=== PATIENT | female | born 2000 | race Two or more races ===

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

== ENCOUNTER 2021-01-15 13:43 | Emergency (ER) | payer OTHER, SELFPAY | END 2021-01-15 15:49 | disposition left against medical advice (07) | PROVIDERS: Emergency Provider Emergency Medicine; PCP Internal Medicine | DX: O03.9 Complete or unspecified spontaneous abortion without complication (principal) ==

== ENCOUNTER 2021-01-25 08:57 | Outpatient (REF) | payer OTHER, SELFPAY ==
[2021-01-26 09:36] LABS: CT PCR NOT DETECTED (Not Detect.); NG PCR NOT DETECTED (Not Detect.)
== END 2021-01-25 08:58 | disposition home or self-care (01) ==
LOC: HO.LAB 08:57
PROVIDERS: PCP Internal Medicine; Visit Provider Obstetrics & Gynecology
DX: Z32.01 Encounter for pregnancy test, result positive (principal)
CPT/HCPCS: 86850; 86900; 86901; 87491; 87591; 99212

== ENCOUNTER 2021-01-25 11:16 | Outpatient (REF) | payer OTHER, SELFPAY ==
--- NOTE | ~2021-01-25 | US_ITS ---
EXAMINATION: US OBSTETRICAL ULTRASOUND CLINICAL INFORMATION: Encounter for test. COMPARISON: None. LMP: Unknown. Gestational age by maternal dates is unknown. Estimated date of delivery by maternal dates is unknown. TECHNIQUE: Transabdominal imaging of pelvis is performed. FINDINGS: There is a single intrauterine gestational sac with visible yolk sac, embryo/fetus, and cardiac activity. There is no significant subchorionic hemorrhage or hematoma. HR: 143 beats per minute. CRL (crown-rump length): 0.95 cm, 7 weeks and 0 days (+/- 4 days). EVERARDO (estimated date of delivery): 09/13/2021 +/- 4 days. MATERNAL ADNEXA: The right maternal ovary measures 4.0 x 1.7 x 2.6 cm. The left maternal ovary is not visualized. There is no significant maternal adnexal mass. No maternal pelvic ascites. US/US OB <= 14 weeks fetus IMPRESSION: 1. Single intrauterine gestation with ultrasound gestational age of 7 weeks and 0 days +/- 4 days. 2. Estimated date of delivery is 09/13/2021 +/- 4 days. 3. No maternal adnexal mass or pelvic ascites. 4. The right ovary is unremarkable. The left ovary is not seen.
== END 2021-01-25 11:17 | disposition home or self-care (01) ==
LOC: HO.HMGCX 11:16
PROVIDERS: PCP Internal Medicine; Visit Provider Obstetrics & Gynecology
DX: Z34.91 Encounter for supervision of normal pregnancy, unspecified, first trimester (principal)
CPT/HCPCS: 76801

== ENCOUNTER 2021-01-29 20:17 | Emergency (ER) | payer OTHER, SELFPAY ==
[2021-01-29 20:28] VITALS: BP 107/46; PULSE 99; RESP 16; TEMP 36.8; O2SAT 100; BMI 28.6
--- NOTE | 2021-01-29 20:37 | ECG_ITS ---
Test Reason : SEIZURE Blood Pressure : / mmHG Vent. Rate : 089 BPM Atrial Rate : 089 BPM P-R Int : 148 ms QRS Dur : 062 ms QT Int : 346 ms P-R-T Axes : 042 079 030 degrees QTc Int : 420 ms Normal sinus rhythm Nonspecific ST abnormality Abnormal ECG When compared with ECG of 07-JUL-2020 08:40, Vent. rate has decreased BY 80 BPM Referred By: Elena Rizzo Electronically Signed By:BARBRA SEPULVEDA
[2021-01-29 20:55] VITALS: BP 109/52; PULSE 80
[2021-01-29 20:59] VITALS: BP 107/56; BP 117/57; PULSE 88; PULSE 90
[2021-01-29 21:01] VITALS: BP 107/56; PULSE 88; RESP 20; TEMP 36.9
[2021-01-29 21:20] LABS: Glucose, Whole Blood 96 mg/dL (60-115)
--- NOTE | 2021-01-29 21:23 | ED_ITS ---
HPI - Seizure General Chief Complaint: Seizure Stated Complaint: seizures Time Seen by Provider: 01/29/21 20:26 Source: patient and EMS Mode of arrival: EMS Limitations: no limitations History of Present Illness HPI Narrative: 20-year-old female with a past medical history of bipolar disease, hepatitis-C, nonepileptic seizure disorder here with complaints of fall while working. Patient is a [employer]. She tells me today she had a mild headache and felt very dizzy with moving around. She tells me while she got up to do an activity she fell to the ground and is unsure if she passed out or had a seizure. No incontinence. No tongue bite. On arrival to the emergency department she is alert and oriented. She tells me she found out she was 8 weeks about 3 weeks ago and discontinued all of her medications for bipolar, anxiety and insomnia. She has had ultrasound to confirm IUP. Denies abdominal pain or vaginal bleeding. Related Data Home Medications Medication Instructions Recorded Confirmed hydroxyzine HCl 25 mg tablet 25 - 50 mg PO BID PRN 07/11/20 11/18/20 aripiprazole 5 mg tablet 5 mg PO BEDTIME 07/28/20 11/18/20 propranolol 10 mg tablet 10 mg PO BID 07/28/20 11/18/20 sertraline 50 mg tablet 0 mg PO 08/25/20 11/18/20 trazodone 100 mg tablet 100 mg PO BEDTIME PRN 11/17/20 11/18/20 prenat.vits,sheyla,ekw-krdi-dqgxs 1 tab PO BEDTIME 01/25/21 Previous Rx's Medication Instructions Recorded epinephrine 0.3 mg/0.3 mL 0.3 mg IM ONCE PRN #2 ea 04/29/20 injection, auto-injector (EpiPen 2-Chris) ondansetron HCl 4 mg tablet 4 mg PO Q8H PRN #10 tab 09/20/20 (Zofran) nitrofurantoin macrocrystal 100 mg 100 mg PO BID 7 Days #14 cap 11/26/20 capsule Allergies Allergy/AdvReac Type Severity Reaction Status Date / Time amoxicillin [AMOXICILLIN] Allergy Severe Hives Verified 01/25/21 09:07 cefadroxil [Cefadroxil] Allergy Severe anaphylaxis Verified 01/25/21 09:07 peanut [PEANUT] Allergy Severe LIP, Verified 01/25/21 09:07 TONGUE SWELLING. Review of Systems Review of Systems: Yes all other systems are reviewed and are negative Constitutional: Constitutional: Reports no additional constitutional complaints, Denies body ache(s), Denies chills, Denies fever(s), Reports headache(s) and Denies weakness Eyes: Eyes: Reports no additional eye complaints and Denies change in vision ENT: Reports system reviewed and no additional complaints, except as documented, Reports dizziness, Reports headache(s), Denies nasal congestion, Denies nasal discharge and Denies neck pain Cardiovascular: Cardiovascular: Reports no additional cardiovascular complaints, Denies chest pain, Denies leg edema and Denies dyspnea Respiratory: Respiratory: Reports no additional respiratory complaints, Denies cough and Denies dyspnea Gastrointestinal: Gastrointestinal: Reports no additional gastrointestinal complaints, Denies abdominal pain, Denies diarrhea, Denies nausea and Denies vomiting Genitourinary: Genitourinary: Reports no additional female genitourinary complaints and Denies urinary incontinence Musculoskeletal: Musculoskeletal: Reports no additional musculoskeletal complaints, Denies back pain, Denies arthralgias, Denies joint swelling, Denies neck pain, Denies numbness and Denies tingling Integumentary/Breasts: Skin/Breast: Reports system reviewed and no additional complaints, except as docu and Denies rash Neurologic: Reports system reviewed and no additional complaints, except as documented, Denies Abnormal speech present, Reports dizziness, Reports headache(s), Denies numbness, Denies tingling and Denies weakness PMFSH Past Medical History Attestation statement: The following information was validated with the patient. Source: old records reviewed and nursing notes reviewed Medical History Anxiety and depression Bipolar 1 disorder Food allergy, peanut Hospital discharge follow-up Insomnia Lower back pain Lumbago with sciatica, right side Positive hepatitis C antibody test Seizures Sprain, low back Surgical History H/O removal of cyst History of wisdom tooth extraction Family History Family History Father PTSD (post-traumatic stress disorder) High cholesterol Mother Loss of hearing Social History Social History Alcohol intake: never Patient Tobacco Use Status: Never used Tobacco Advance Directives: No Advance Directives Information Provided: No Patient : Yes Physical Exam Vital Signs: Vital Signs: Last Vital Signs Temp 98.5 F 01/29/21 21:01 Pulse 88 01/29/21 21:01 Resp 16 01/29/21 22:36 BP 107/56 L 01/29/21 21:01 Pulse Ox 100 01/29/21 20:28 Body Mass Index 28.6 Const: General: cooperative, healthy appearing, comfortable and no acute distress Orientation/consciousness: patient oriented x3 Limitations: no limitations HENMT: Head: Yes normal to inspection Ears: hearing grossly normal bilaterally General nose exam: Normal external nose present Face and sinus: Yes normal facial exam Mouth: Normal oral and palatal mucosa present Throat: Yes posterior oropharynx normal Eyes: General: appearance normal, both eyes and all related structures Pupils: Equal, round and reactive pupils present Neck: Neck: Yes normal visual inspection Chest: Chest palpation & inspection: normal inspection of the chest Resp: Effort & Inspection: normal respiratory effort Auscultation: clear to auscultation bilaterally Cardio: Rate: regular rate Rhythm: regular rhythm Peripheral pulses: Peripheral pulses 2+ throughout GI: Inspection: Yes normal to inspection Palpation (GI): Soft to palpation and nontender Auscultation: normal bowel sounds Back/Spine/Pelvis: Thoracic/Lumbar Spine: thoracic and lumbar spine normal to inspection Skin: General skin exam: no rashes or lesions noted Neuro: General: patient oriented x3, no focal motor deficits and normal sensation to monofilament Cranial nerves: Yes CN's II-XII intact bilaterally, Yes Equal, round and reactive pupils present, Yes Bilaterally intact EOM present, Yes Nystagmus not present, Yes Normal facial strength present and Yes Midline tongue present Cognition (Neuro): normal cognition Speech: No Abnormal speech present Gait exam (Neuro): Normal gait present Motor exam (neuro): 5/5 motor strength present throughout Sensory Exam: Normal double simultaneous stimulation for sensation Coordination: [id number]-[id number] test normal, xyyn-xw-[id number] test normal and tandem gait normal Extrem: General: Yes normal to inspection Course Course Course Narrative: 20-year-old female here with syncopal versus seizure which occurred at work. Patient had pre symptoms of dizziness and mild headache. 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 No incontinence, witnessed shaking or tongue bite. On arrival alert and oriented. Neurologically intact. Patient tells me that she has nonepileptic seizures wh ich are triggered by stress. She has had increased stress at work the last 2 weeks as well as finding out that she was unexpectedly . She also tells me she discontinued all her psychiatric medications 3 weeks ago after finding out she was . No -related complaints such as bleeding or cramping. Hemodynamically stable. Will check labs, EKG, orthostatics, POC. 2203-labs are unremarkable. EKG and point of care normal. Orthostatics negative. Patient is feeling improved. ?syncope vs non epileptic seizure. She is at her baseline. Hemodynamically stable. Up and ambulatory with a steady gait. Reviewed worrisome signs and symptoms of when to return to the emergency department. Comfortable discharge home. MDM - Seizure Medical Records Attestation: I reviewed the patient's medical records. Lab Data Attestation: I reviewed the patient's lab results. Result diagrams: 01/29/21 21:26 01/29/21 21:26 Labs: Lab Results 01/29/21 01/29/21 01/29/21 Range/Units 21:16 21:26 21:26 WBC 8.1 (4.8-10.8) X10*3/uL RBC 3.45 L (4.20-5.50) X10*6/uL Hgb 10.8 L (12.0-16.0) g/dl Hct 31.2 L (37-47) % MCV 90.4 (80-98) fL MCH 31.3 (27.0-33.0) pg MCHC 34.6 (31.0-35.0) g/dl RDW 12.4 (11.0-16.0) % Plt Count 238 (160-400) X10*3/uL MPV 10.2 (9.4-12.3) fL Immature Gran % (Auto) 0.4 (0.0-0.4) % Neut % (Auto) 63.6 (45-73) % Lymph % (Auto) 29.3 (20-40) % [place] % (Auto) 5.3 (2-11) % Eos % (Auto) 0.9 (0-4) % Baso % (Auto) 0.5 (0-2) % Lymph # (Auto) 2.4 (1.2-4.9) X10*3/uL [place] # (Auto) 0.4 (0.1-1.2) X10*3/uL Eos # (Auto) 0.1 (0.0-0.4) X10*3/uL Baso # (Auto) 0.0 (0.0-0.2) X10*3/uL Abs Immat Gran (auto) 0.03 (0.00-0.03) X10*3/uL Absolute Neuts (auto) 5.1 (2.0-8.3) X10*3/uL Absolute Nucleated RBC 0.000 (0.0-0.012) X10*3/uL Nucleated RBC % (auto) 0.0 (0.0-0.2) /100WBC Sodium 139 (135-145) mmol/L Potassium 4.0 (3.3-5.1) mmol/L Chloride 108 (96-108) mmol/L Carbon Dioxide 23 (22-29) mmol/L Anion Gap 12 (12-20) BUN 6 L (9-16) mg/dL Creatinine 0.68 (0.5-1.4) mg/dL Estim Creat Clear Calc 108.5 Estimated GFR > 60 POC Glucose 96 (60-115) mg/dL Random Glucose 96 (60-115) mg/dL Calcium 9.2 D (8.4-10.2) mg/dL Magnesium 2.1 (1.6-2.6) mg/dL Urine Color Urine Appearance Urine pH (5.0-8.0) Ur Specific [place] (1.005-1.025) Urine Protein (NEG-TRACE) MG/DL Urine Glucose (UA) (NEG) MG/DL Urine Ketones (NEG) MG/DL Urine Blood (NEG) Urine Nitrite (NEG) Ur Leukocyte Esterase (NEG) Urine Test (NEGATIVE) 01/29/21 01/29/21 Range/Units 21:26 21:26 WBC (4.8-10.8) X10*3/uL RBC (4.20-5.50) X10*6/uL Hgb (12.0-16.0) g/dl Hct (37-47) % MCV (80-98) fL MCH (27.0-33.0) pg MCHC (31.0-35.0) g/dl RDW (11.0-16.0) % Plt Count (160-400) X10*3/uL MPV (9.4-12.3) fL Immature Gran % (Auto) (0.0-0.4) % Neut % (Auto) (45-73) % Lymph % (Auto) (20-40) % [place] % (Auto) (2-11) % Eos % (Auto) (0-4) % Baso % (Auto) (0-2) % Lymph # (Auto) (1.2-4.9) X10*3/uL [place] # (Auto) (0.1-1.2) X10*3/uL Eos # (Auto) (0.0-0.4) X10*3/uL Baso # (Auto) (0.0-0.2) X10*3/uL Abs Immat Gran (auto) (0.00-0.03) X10*3/uL Absolute Neuts (auto) (2.0-8.3) X10*3/uL Absolute Nucleated RBC (0.0-0.012) X10*3/uL Nucleated RBC % (auto) (0.0-0.2) /100WBC Sodium (135-145) mmol/L Potassium (3.3-5.1) mmol/L Chloride (96-108) mmol/L Carbon Dioxide (22-29) mmol/L Anion Gap (12-20) BUN (9-16) mg/dL Creatinine (0.5-1.4) mg/dL Estim Creat Clear Calc Estimated GFR POC Glucose (60-115) mg/dL Random Glucose (60-115) mg/dL Calcium (8.4-10.2) mg/dL Magnesium (1.6-2.6) mg/dL Urine Color YELLOW Urine Appearance CLEAR Urine pH 6.5 (5.0-8.0) Ur Specific [place] <= 1.005 (1.005-1.025) Urine Protein NEG (NEG-TRACE) MG/DL Urine Glucose (UA) NEG (NEG) MG/DL Urine Ketones NEG (NEG) MG/DL Urine Blood NEG (NEG) Urine Nitrite NEG (NEG) Ur Leukocyte Esterase NEG (NEG) Urine Test POSITIVE H (NEGATIVE) ECG Data Attestation: I personally reviewed and interpreted this ECG as follows: ECG interpretation date: 01/29/21 ECG interpretation time: 20:52 Interpretation: Normal sinus rhythm with a rate of 89, normal MD, normal QRS, normal QT Discharge Plan Discharge Clinical Impression: Syncope Patient Disposition: Home, Self-Care Instructions: Syncope (ED) Additional Instructions: Eat small frequent meals Increase fluid Prescriptions: No Action nitrofurantoin macrocrystal 100 mg capsule 100 mg PO BID 7 Days Qty: 14 RF: 0 ondansetron HCl [Zofran] 4 mg tablet 4 mg PO Q8H PRN (Reason: nausea and vomiting) Qty: 10 RF: 0 epinephrine [EpiPen 2-Chris] 0.3 mg/0.3 mL auto-injector 0.3 mg IM ONCE PRN (Reason: anaphylaxis) Qty: 2 RF: 0 sertraline 50 mg tablet 0 mg PO RF: 0 trazodone 100 mg tablet 100 mg PO BEDTIME PRNRF: 0 hydroxyzine HCl 25 mg tablet 25 - 50 mg PO BID PRN (Reason: Anxiety) RF: 0 aripiprazole 5 mg tablet 5 mg PO BEDTIME RF: 0 propranolol 10 mg tablet 10 mg PO BID RF: 0 prenat.vits,sheyla,rld-vuuy-hwnmn Tablet 1 tab PO BEDTIME RF: 0 Referrals: Physician,Unknown [Primary Care Provider] - 2 days Stand Alone Forms: Work/School Release Interventions: ED Discharge Assessment Last Done: 01/29/21 22:36 Discharge Date/Time: 01/29/21 22:36
[2021-01-29] MEDS: Acetaminophen 325 MG TABLET 975 MG PO (21:30)
[2021-01-29 21:32] LABS: Basophils Percent Auto 0.5 % (0-2); Eosinophils Absolute Auto 0.1 X10*3/uL (0.0-0.4); Eosinophils Percent Auto 0.9 % (0-4); Hematocrit 31.2 % (37-47); Hemoglobin 10.8 g/dl (12.0-16.0); Imm Gran Abs Auto 0.03 X10*3/uL (0.00-0.03); Imm Gran Pct Auto 0.4 % (0.0-0.4); Lymphocytes Absolute Auto 2.4 X10*3/uL (1.2-4.9); Lymphocytes Percent Auto 29.3 % (20-40); MANUAL DIFF FLAG NO; Mean Corpuscular HGB Conc 34.6 g/dl (31.0-35.0); Mean Corpuscular Hemoglobin 31.3 pg (27.0-33.0); Mean Corpuscular Volume 90.4 fL (80-98); Mean Platelet Volume 10.2 fL (9.4-12.3); Monocytes Absolute Auto 0.4 X10*3/uL (0.1-1.2); Monocytes Percent Auto 5.3 % (2-11); Neutrophils Absolute Auto 5.1 X10*3/uL (2.0-8.3); Neutrophils Percent Auto 63.6 % (45-73); Platelet Count 238 X10*3/uL (160-400); Red Blood Count 3.45 X10*6/uL (4.20-5.50); Red Cell Distribution Width 12.4 % (11.0-16.0); White Blood Count 8.1 X10*3/uL (4.8-10.8)
[2021-01-29 21:34] LABS: UPreg QC Valid YES; Urine Pregnancy POSITIVE (NEGATIVE)
[2021-01-29 21:35] LABS: Glucose Urine UA NEG (NEG); Leukocyte Esterase Urine NEG (NEG); Nitrite Urine NEG (NEG); PH 6.5 (5.0-8.0); Specific Gravity - Urine <= 1.005 (1.005-1.025); Urine Blood NEG (NEG); Urine Ketones NEG (NEG); Urine Protein NEG (NEG-TRACE)
[2021-01-29 21:36] LABS: Appearance Urine CLEAR; Color Urine YELLOW
[2021-01-29 21:54] LABS: Anion Gap 12 (12-20); Blood Urea Nitrogen 6 mg/dL (9-16); Calcium 9.2 mg/dL (8.4-10.2); Carbon Dioxide 23 mmol/L (22-29); Chloride 108 mmol/L (96-108); Creatinine Clr Calc Pharmacy 108.5; Estimated Glomerular Filt Rate > 60; Glucose Random 96 mg/dL (60-115); Magnesium 2.1 mg/dL (1.6-2.6); Sodium 139 mmol/L (135-145)
[2021-01-29 22:36] VITALS: RESP 16
== END 2021-01-29 22:36 | disposition home or self-care (01) ==
PROVIDERS: Nurse Practitioner Family; Emergency Provider Internal Medicine
DX: R56.9 Unspecified convulsions (principal); R42 Dizziness and giddiness; R51.9 Headache, unspecified; Z79.899 Other long term (current) drug therapy
CPT/HCPCS: 36415; 80048; 81003; 81025; 82947; 83735; 85025; 93005; 99283; 99284

== ENCOUNTER 2021-01-31 12:13 | Emergency (ER) | payer OTHER, SELFPAY ==
[2021-01-31 13:16] VITALS: BP 111/61; PULSE 80; RESP 18; TEMP 36.6; O2SAT 100; BMI 29.2
[2021-01-31 13:40] LABS: Glucose Urine UA NEG (NEG); Leukocyte Esterase Urine NEG (NEG); Nitrite Urine NEG (NEG); Specific Gravity - Urine <= 1.005 (1.005-1.025); Urine Blood NEG (NEG); Urine Ketones NEG (NEG); Urine Protein NEG (NEG-TRACE)
[2021-01-31 13:44] LABS: Appearance Urine CLEAR; Color Urine YELLOW; UPreg QC Valid YES; Urine Pregnancy POSITIVE (NEGATIVE)
--- NOTE | 2021-01-31 15:23 | ED_ITS ---
HPI - General Adult General Chief complaint: General Medical Stated complaint: states passed out hit head Time Seen by Provider: 01/31/21 14:45 Source: patient Mode of arrival: ambulatory Limitations: no limitations History of Present Illness HPI narrative: 20 y/o female with history of bipolar disorder, nonepileptic seizures, hepatitis C, anxiety/depression, insomnia who is G1 and currently 7 weeks presents to the ER for evaluation after she syncopized and hit her head yesterday. She reports standing outside with her boyfriend when she started feeling dizzy and then lost consciousness, fell forward, hit her head on a wall and her boyfriend caught her and lowered her to the ground. She was seen here in the ED on 01/29 for syncope as well, had an unremarkable workup and was discharged home. She woke up this morning with a mild frontal headache and some nausea and vomiting. She has been vomiting on/off during this beginning part of her . She has no abdominal pain, vaginal bleeding or cramping. No SOB or chest pain. She states increased dizziness with prolonged standing since she was told she was . She recently stopped all of her psych meds after finding out she was , until she can be seen by her psychitrist. She called her OB who told her to come to the ER for evaluation. complaint: s/p syncope Onset (ago): day(s) (1) Location: head Radiation: non-radiation Severity: mild Severity scale (1-10): 3 Quality: aching Pain Consistency: constant Relieving factors: none Exacerbating factors: none Associated symptoms: nausea/vomiting Treatments prior to arrival: none Related Data Home Medications Medication Instructions Recorded Confirmed hydroxyzine HCl 25 mg tablet 25 - 50 mg PO BID PRN 07/11/20 11/18/20 aripiprazole 5 mg tablet 5 mg PO BEDTIME 07/28/20 11/18/20 propranolol 10 mg tablet 10 mg PO BID 07/28/20 11/18/20 sertraline 50 mg tablet 0 mg PO 08/25/20 11/18/20 trazodone 100 mg tablet 100 mg PO BEDTIME PRN 11/17/20 11/18/20 prenat.vits,sheyla,lsg-qpda-pjngw 1 tab PO BEDTIME 01/25/21 Previous Rx's Medication Instructions Recorded epinephrine 0.3 mg/0.3 mL 0.3 mg IM ONCE PRN #2 ea 04/29/20 injection, auto-injector (EpiPen 2-Chris) ondansetron HCl 4 mg tablet 4 mg PO Q8H PRN #10 tab 09/20/20 (Zofran) nitrofurantoin macrocrystal 100 mg 100 mg PO BID 7 Days #14 cap 11/26/20 capsule Allergies Allergy/AdvReac Type Severity Reaction Status Date / Time amoxicillin [AMOXICILLIN] Allergy Severe Hives Verified 01/31/21 13:16 cefadroxil [Cefadroxil] Allergy Severe anaphylaxis Verified 01/31/21 13:16 peanut [PEANUT] Allergy Severe LIP, Verified 01/31/21 13:16 TONGUE SWELLING. Review of Systems Review of Systems: Constitutional: No Fever, No Chills ENT/Mouth: No sore throat, No Rhinorrhea, No Swallowing Difficulty Cardiovascular: No Chest Pain, No SOB Respiratory: No Cough, No Sputum Gastrointestinal: + Nausea, + Vomiting, No Diarrhea, No abdominal Pain or cramping Genitourinary: No Dysuria, No Urinary Frequency, No Hematuria, No vaginal bleeding Musculoskeletal: No joint pain, + Myalgias Skin: No Skin Lesions, No rash Neuro: No Weakness, No Numbness, No Dizziness, + Headache Psych: + Anxiety/Panic, No Depression Heme/Lymph: No Bruising, No Lymphadenopathy PMFSH Past Medical History Medical History Anxiety and depression Bipolar 1 disorder Food allergy, peanut Hospital discharge follow-up Insomnia Lower back pain Lumbago with sciatica, right side Positive hepatitis C antibody test Seizures Sprain, low back Surgical History H/O removal of cyst History of wisdom tooth extraction Family History Family History Father PTSD (post-traumatic stress disorder) High cholesterol Mother Loss of hearing Social History Social History Alcohol intake: never Patient Tobacco Use Status: Never used Tobacco Use of substances other than those prescribed or required for medical reasons: No Advance Directives: No Advance Directives Information Provided: No Patient : Yes Physical Exam Vital Signs: Vital Signs: Last Vital Signs Temp 97.9 F 01/31/21 13:16 Pulse 82 01/31/21 16:19 Resp 18 01/31/21 13:16 BP 112/59 L 01/31/21 16:19 Pulse Ox 100 01/31/21 13:16 Body Mass Index 29.2 Appearance: Alert. Oriented X3. No acute distress. Eyes: Pupils equal, round and reactive to light. ENT: Pharynx normal. Neck: Normal inspection. Neck supple. CVS: Normal heart rate and rhythm. Pulses normal. Respiratory: No respiratory distress. Breath sounds normal. Abdomen: Soft and nontender. Mild right sided flank tenderness, no ecchymosis, no CVA tenderness. no RUQ tenderness. +BS x4. Pelvic exam deferred Skin: Skin warm and dry. Normal skin color. Normal skin turgor. No rashes. Extremities: No lower extremity edema. Neuro: Oriented X 3. No motor deficit. No sensory deficit. Course Course Course Narrative: 20 y/o female presenting with syncopal event yesterday after standing for a prolonged amount of time. She was dizzy prior. Admits to not drinking or eating much. She hit her head but has no evidence of trauma on exam. Reports some headache, N/V this morning. May be related to , morning sickness. No N/V here. She appears well. Will check basic labs and orthostatics. IVF ordered. Reevaluation(s) Reevaluation #1: Labs are normal. UA normal. Given IVF and tylenol. She is stable for discharge with plan to f/u with OB. Discussed importance of staying hydrated. Encouraged not to stand for long periods of time and change positions slowly. Medical Decision Making Lab Data Result diagrams: 01/31/21 15:16 01/31/21 15:16 Labs: Lab Results 01/31/21 01/31/21 01/31/21 Range/Units 13:25 13:25 15:16 WBC 7.7 (4.8-10.8) X10*3/uL RBC 3.48 L (4.20-5.50) X10*6/uL Hgb 10.8 L (12.0-16.0) g/dl Hct 31.9 L (37-47) % MCV 91.7 (80-98) fL MCH 31.0 (27.0-33.0) pg MCHC 33.9 (31.0-35.0) g/dl RDW 12.6 (11.0-16.0) % Plt Count 239 (160-400) X10*3/uL MPV 10.2 (9.4-12.3) fL Immature Gran % (Auto) 0.4 (0.0-0.4) % Neut % (Auto) 65.4 (45-73) % Lymph % (Auto) 26.9 (20-40) % [place] % (Auto) 6.2 (2-11) % Eos % (Auto) 0.6 (0-4) % Baso % (Auto) 0.5 (0-2) % Lymph # (Auto) 2.1 (1.2-4.9) X10*3/uL [place] # (Auto) 0.5 (0.1-1.2) X10*3/uL Eos # (Auto) 0.1 (0.0-0.4) X10*3/uL Baso # (Auto) 0.0 (0.0-0.2) X10*3/uL Abs Immat Gran (auto) 0.03 (0.00-0.03) X10*3/uL Absolute Neuts (auto) 5.1 (2.0-8.3) X10*3/uL Absolute Nucleated RBC 0.000 (0.0-0.012) X10*3/uL Nucleated RBC % (auto) 0.0 (0.0-0.2) /100WBC Sodium (135-145) mmol/L Potassium (3.3-5.1) mmol/L Chloride (96-108) mmol/L Carbon Dioxide (22-29) mmol/L Anion Gap (12-20) BUN (9-16) mg/dL Creatinine (0.5-1.4) mg/dL Estim Creat Clear Calc Estimated GFR Random Glucose (60-115) mg/dL Calcium (8.4-10.2) mg/dL Magnesium (1.6-2.6) mg/dL Total Bilirubin (0.0-1.0) mg/dL Direct Bilirubin (0.0-0.5) mg/dL AST (5-31) U/L ALT (0-31) U/L Alkaline Phosphatase (39-117) U/L Total Protein (6.5-8.0) g/dL Albumin (3.5-5.0) g/dL Urine Color YELLOW Urine Appearance CLEAR Urine pH 6.0 (5.0-8.0) Ur Specific [place] <= 1.005 (1.005-1.025) Urine Protein NEG (NEG-TRACE) MG/DL Urine Glucose (UA) NEG (NEG) MG/DL Urine Ketones NEG (NEG) MG/DL Urine Blood NEG (NEG) Urine Nitrite NEG (NEG) Ur Leukocyte Esterase NEG (NEG) Urine Test POSITIVE H (NEGATIVE) 01/31/21 Range/Units 15:16 WBC (4.8-10.8) X10*3/uL RBC (4.20-5.50) X10*6/uL Hgb (12.0-16.0) g/dl Hct (37-47) % MCV (80-98) fL MCH (27.0-33.0) pg MCHC (31.0-35.0) g/dl RDW (11.0-16.0) % Plt Count (160-400) X10*3/uL MPV (9.4-12.3) fL Immature Gran % (Auto) (0.0-0.4) % Neut % (Auto) (45-73) % Lymph % (Auto) (20-40) % [place] % (Auto) (2-11) % Eos % (Auto) (0-4) % Baso % (Auto) (0-2) % Lymph # (Auto) (1.2-4.9) X10*3/uL [place] # (Auto) (0.1-1.2) X10*3/uL Eos # (Auto) (0.0-0.4) X10*3/uL Baso # (Auto) (0.0-0.2) X10*3/uL Abs Immat Gran (auto) (0.00-0.03) X10*3/uL Absolute Neuts (auto) (2.0-8.3) X10*3/uL Absolute Nucleated RBC (0.0-0.012) X10*3/uL Nucleated RBC % (auto) (0.0-0.2) /100WBC Sodium 139 (135-145) mmol/L Potassium 4.1 (3.3-5.1) mmol/L Chloride 108 (96-108) mmol/L Carbon Dioxide 22 (22-29) mmol/L Anion Gap 13 (12-20) BUN 6 L (9-16) mg/dL Creatinine 0.67 (0.5-1.4) mg/dL Estim Creat Clear Calc 111.4 Estimated GFR > 60 Random Glucose 95 (60-115) mg/dL Calcium 9.5 (8.4-10.2) mg/dL Magnesium 2.0 (1.6-2.6) mg/dL Total Bilirubin 0.9 (0.0-1.0) mg/dL Direct Bilirubin 0.3 (0.0-0.5) mg/dL AST 15 (5-31) U/L ALT 13 (0-31) U/L Alkaline Phosphatase 40 D (39-117) U/L Total Protein 6.6 (6.5-8.0) g/dL Albumin 4.1 (3.5-5.0) g/dL Urine Color Urine Appearance Urine pH (5.0-8.0) Ur Specific [place] (1.005-1.025) Urine Protein (NEG-TRACE) MG/DL Urine Glucose (UA) (NEG) MG/DL Urine Ketones (NEG) MG/DL Urine Blood (NEG) Urine Nitrite (NEG) Ur Leukocyte Esterase (NEG) Urine Test (NEGATIVE) Discharge Plan Discharge Clinical Impression: Syncope Qualifiers: Syncope type: unspecified Qualified Code(s): R55 - Syncope and collapse Patient Disposition: Home, Self-Care Instructions: Syncope (ED) Additional Instructions: Your workup today was unremarkable. Do your best to stay hydrated and drink plenty of water. Do not stand for prolonged periods of time. When you go from laying or sitting to standing, do so slowly. Follow up with your [employer]. If you develop new or worsening symptoms call 911 or come back to the ER for further evaluation. Prescriptions: No Action nitrofurantoin macrocrystal 100 mg capsule 100 mg PO BID 7 Days Qty: 14 RF: 0 ondansetron HCl [Zofran] 4 mg tablet 4 mg PO Q8H PRN (Reason: nausea and vomiting) Qty: 10 RF: 0 epinephrine [EpiPen 2-Chris] 0.3 mg/0.3 mL auto-injector 0.3 mg IM ONCE PRN (Reason: anaphylaxis) Qty: 2 RF: 0 sertraline 50 mg tablet 0 mg PO RF: 0 trazodone 100 mg tablet 100 mg PO BEDTIME PRNRF: 0 hydroxyzine HCl 25 mg tablet 25 - 50 mg PO BID PRN (Reason: Anxiety) RF: 0 aripiprazole 5 mg tablet 5 mg PO BEDTIME RF: 0 propranolol 10 mg tablet 10 mg PO BID RF: 0 prenat.vits,sheyla,cwo-xkiu-izrpo Tablet 1 tab PO BEDTIME RF: 0 Interventions: ED Discharge Assessment Last Done: 01/31/21 19:48 Discharge Date/Time: 01/31/21 20:00
[2021-01-31 15:24] LABS: MANUAL DIFF FLAG NO
[2021-01-31 15:29] LABS: Basophils Percent Auto 0.5 % (0-2); Eosinophils Absolute Auto 0.1 X10*3/uL (0.0-0.4); Eosinophils Percent Auto 0.6 % (0-4); Hematocrit 31.9 % (37-47); Hemoglobin 10.8 g/dl (12.0-16.0); Imm Gran Abs Auto 0.03 X10*3/uL (0.00-0.03); Imm Gran Pct Auto 0.4 % (0.0-0.4); Lymphocytes Absolute Auto 2.1 X10*3/uL (1.2-4.9); Lymphocytes Percent Auto 26.9 % (20-40); Mean Corpuscular HGB Conc 33.9 g/dl (31.0-35.0); Mean Corpuscular Volume 91.7 fL (80-98); Mean Platelet Volume 10.2 fL (9.4-12.3); Monocytes Absolute Auto 0.5 X10*3/uL (0.1-1.2); Monocytes Percent Auto 6.2 % (2-11); Neutrophils Absolute Auto 5.1 X10*3/uL (2.0-8.3); Neutrophils Percent Auto 65.4 % (45-73); Platelet Count 239 X10*3/uL (160-400); Red Blood Count 3.48 X10*6/uL (4.20-5.50); Red Cell Distribution Width 12.6 % (11.0-16.0); White Blood Count 7.7 X10*3/uL (4.8-10.8)
[2021-01-31 16:05] LABS: Alanine Aminotransferase 13 U/L (0-31); Albumin Level 4.1 g/dL (3.5-5.0); Alkaline Phosphatase 40 U/L (39-117); Anion Gap 13 (12-20); Aspartate Amino Transferase 15 U/L (5-31); Bilirubin Direct 0.3 mg/dL (0.0-0.5); Bilirubin Total 0.9 mg/dL (0.0-1.0); Blood Urea Nitrogen 6 mg/dL (9-16); Calcium 9.5 mg/dL (8.4-10.2); Carbon Dioxide 22 mmol/L (22-29); Chloride 108 mmol/L (96-108); Creatinine Clr Calc Pharmacy 111.4; Estimated Glomerular Filt Rate > 60; Glucose Random 95 mg/dL (60-115); Potassium 4.1 mmol/L (3.3-5.1); Sodium 139 mmol/L (135-145); Total Protein 6.6 g/dL (6.5-8.0)
[2021-01-31] MEDS: Acetaminophen 325 MG TABLET 650 MG PO ×2 (16:14→19:44)
[2021-01-31] MEDS: 0.9 % Sodium Chloride 1,000 ML 999 ML IVCONT (16:15)
[2021-01-31 16:16] VITALS: BP 100/44; BP 98/38; PULSE 76
[2021-01-31 16:17] VITALS: BP 92/43; PULSE 79
[2021-01-31 16:19] VITALS: BP 112/59; PULSE 82
--- NOTE | 2021-01-31 18:48 | PC.NURSE ---
Pt states that she is having RLQ ab pain. She recd Tylenol prior to this episode. PA made aware.
== END 2021-01-31 20:00 | disposition home or self-care (01) ==
PROVIDERS: Physician Assistant; Emergency Provider Emergency Medicine; PCP Internal Medicine
DX: O26.891 Other specified pregnancy related conditions, first trimester (principal); R55 Syncope and collapse; Z3A.01 Less than 8 weeks gestation of pregnancy
CPT/HCPCS: 36415; 80048; 80076; 81003; 81025; 83735; 85025; 96360; 99284

== ENCOUNTER 2021-02-16 09:54 | Outpatient (REF) | payer OTHER, SELFPAY ==
[2021-02-16 12:24] LABS: Hematocrit 35.5 % (37-47); Hemoglobin 12.1 g/dl (12.0-16.0); Mean Corpuscular HGB Conc 34.1 g/dl (31.0-35.0); Mean Corpuscular Hemoglobin 30.8 pg (27.0-33.0); Mean Corpuscular Volume 90.3 fL (80-98); Mean Platelet Volume 10.3 fL (9.4-12.3); Platelet Count 266 X10*3/uL (160-400); Red Blood Count 3.93 X10*6/uL (4.20-5.50); White Blood Count 7.2 X10*3/uL (4.8-10.8)
[2021-02-16 12:58] LABS: Amphetamine Screen Urine Not Detected (Not Detect); Barbiturates, Urine Not Detected (Not Detect); Benzodiazepines Screen Urine Not Detected (Not Detect); Cannabinoid Screen Urine POSITIVE (Not Detect); Cocaine Screen Urine Not Detected (Not Detect); Fentanyl, urine Not Detected (Not Detect); Opiate Screen Urine Not Detected (Not Detect); Phencyclidine Screen Urine Not Detected (Not Detect)
[2021-02-17 04:35] LABS: Syphilis Screen Nonreactive (Nonreactive)
[2021-02-17 05:04] LABS: HBsAGNum1 0.31 S/CO (0.00-0.99); HIV AB/AG Nonreactive (Nonreactive); HIV Num 1 0.06 S/CO (0.00-0.99); Hepatitis B Surface Antigen Negative (Negative); ~HepC Num1 2.28 S/CO (0.00-0.79); ~Hepatitis C Antibody Reactive (Nonreactive)
== END 2021-02-16 09:55 | disposition home or self-care (01) ==
LOC: HO.LAB 09:54
PROVIDERS: PCP Internal Medicine; Visit Provider Obstetrics & Gynecology
DX: O98.411 Viral hepatitis complicating pregnancy, first trimester (principal); B19.20 Unspecified viral hepatitis C without hepatic coma; O99.321 Drug use complicating pregnancy, first trimester; Z3A.10 10 weeks gestation of pregnancy
CPT/HCPCS: 80307; 85027; 86762; 86780; 86787; 86803; 86850; 86900; 86901; 87086; 87340; 87389; 99212

== ENCOUNTER 2021-02-25 23:32 | Emergency (ER) | payer OTHER, SELFPAY ==
--- NOTE | 2021-02-26 00:57 | ED_ITS ---
HPI - Nausea/Vomiting/Diarrhea General Chief complaint: Nausea/Vomiting/Diarrhea Stated complaint: Can't keep liquids or food down, 11 weeks preg. Time Seen by Provider: 02/26/21 00:56 Source: patient Mode of arrival: ambulatory Limitations: no limitations History of Present Illness HPI Narrative: nausea and vomiting for 2 days. patient is 11 weeks . Patient had 1st trimester ultrasound that was normal MD elicited complaint: nausea and vomiting Onset (ago): day(s) Description of vomiting: watery Associated nausea: Yes Associated abdominal pain: No Location of pain: none Severity: mild Associated symptoms: denies other symptoms Related Data Home Medications Medication Instructions Recorded Confirmed hydroxyzine HCl 25 mg tablet 25 - 50 mg PO BID PRN 07/11/20 11/18/20 aripiprazole 5 mg tablet 5 mg PO BEDTIME 07/28/20 11/18/20 propranolol 10 mg tablet 10 mg PO BID 07/28/20 11/18/20 sertraline 50 mg tablet 0 mg PO 08/25/20 11/18/20 trazodone 100 mg tablet 100 mg PO BEDTIME PRN 11/17/20 11/18/20 prenat.vits,sheyla,ric-[id number]-rchec 1 tab PO BEDTIME 01/25/21 Previous Rx's Medication Instructions Recorded epinephrine 0.3 mg/0.3 mL 0.3 mg IM ONCE PRN #2 ea 04/29/20 injection, auto-injector (EpiPen 2-Chirs) ondansetron HCl 4 mg tablet 4 mg PO Q8H PRN #10 tab 09/20/20 (Zofran) nitrofurantoin macrocrystal 100 mg 100 mg PO BID 7 Days #14 cap 11/26/20 capsule ondansetron HCl 4 mg tablet 4 mg PO Q8H PRN #10 tab 02/26/21 (Zofran) Allergies Allergy/AdvReac Type Severity Reaction Status Date / Time amoxicillin [AMOXICILLIN] Allergy Severe Hives Verified 02/16/21 10:10 cefadroxil [Cefadroxil] Allergy Severe anaphylaxis Verified 02/16/21 10:10 peanut [PEANUT] Allergy Severe LIP, Verified 02/16/21 10:10 TONGUE SWELLING. Review of Systems Constitutional: Constitutional: Reports no additional constitutional complaints Eyes: Eyes: Reports no additional eye complaints ENT: Denies dizziness Cardiovascular: Cardiovascular: Reports no additional cardiovascular complaints Respiratory: Respiratory: Reports as per HPI Gastrointestinal: Gastrointestinal: Reports nausea Genitourinary: Genitourinary: Reports no additional female genitourinary complaints Musculoskeletal: Musculoskeletal: Reports no additional musculoskeletal complaints Integumentary/Breasts: Skin/Breast: Denies rash Neurologic: Reports system reviewed and no additional complaints, except as documented, Denies dizziness and Denies Sensory deficit (Neuro) Psychiatric: Psychiatric: Denies anxiety PMFSH Past Medical History Medical History Anxiety and depression Bipolar 1 disorder Food allergy, peanut Hospital discharge follow-up Insomnia Lower back pain Lumbago with sciatica, right side Positive hepatitis C antibody test Seizures Sprain, low back Surgical History H/O removal of cyst History of wisdom tooth extraction Family History Family History Father PTSD (post-traumatic stress disorder) High cholesterol Mother Loss of hearing Social History Social History Household Members: Family Housing: House Alcohol intake: never Patient Tobacco Use Status: Never used Tobacco Use of substances other than those prescribed or required for medical reasons: Yes Substance Use Type: Marijuana Trauma History: none voiced Special beatriz needs: No Agree to transfusion: Yes Advance Directives: No Advance Directives Information Provided: Yes Patient : Yes Physical Exam Vital Signs: Vital Signs: Last Vital Signs Temp 97.4 F 02/26/21 00:58 Pulse 65 02/26/21 03:39 Resp 16 02/26/21 03:39 BP 92/49 L 02/26/21 03:39 Pulse Ox 100 02/26/21 03:39 Body Mass Index 26.9 Const: General: healthy appearing Nutritional Appearance: average body habitus Orientation/consciousness: oriented to person and patient oriented x3 Limitations: no limitations HENMT: Head: Yes normal to inspection Ears: external ears normal General nose exam: Normal external nose present Mouth: Normal oral and palatal mucosa present and oropharynx normal Throat: Yes posterior oropharynx normal Eyes: General: appearance normal, both eyes and all related structures Neck: Other: supple Neck: Yes normal visual inspection Chest: Chest palpation & inspection: normal inspection of the chest Resp: Auscultation: clear to auscultation bilaterally Cardio: Jugular venous distension: no JVD Rate: regular rate Rhythm: regular rhythm Heart sounds: S1 normal heart sound present and S2 normal heart sound present GI: Inspection: Yes normal to inspection Palpation (GI): Soft to palpation, nontender and No hepatosplenomegaly present Auscultation: normal bowel sounds : General: Yes no CVA tenderness Back/Spine/Pelvis: Back: no CVA tenderness Skin: General skin exam: no rashes or lesions noted Neuro: General: oriented to person and patient oriented x3 Cranial nerves: Yes CN's II-XII intact bilaterally Motor exam (neuro): 5/5 motor strength pr esent throughout Sensory Exam: No Sensory deficit (Neuro) Extrem: General: Yes normal to inspection Psych: Appearance: grossly normal Course Reevaluation(s) Reevaluation #1: Patient feels better, tolerating PO. Will dc home on zofran Time: 04:36 MDM - Nausea/Vomiting/Diarrhea Lab Data Labs: Lab Results 02/26/21 Range/Units 03:27 Urine Color YELLOW Urine Appearance HAZY Urine pH 6.0 (5.0-8.0) Ur Specific Moodus 1.015 (1.005-1.025) Urine Protein NEG (NEG-TRACE) MG/DL Urine Glucose (UA) NEG (NEG) MG/DL Urine Ketones 40 (NEG) MG/DL Urine Blood NEG (NEG) Urine Nitrite NEG (NEG) Ur Leukocyte Esterase NEG (NEG) Discharge Plan Discharge Clinical Impression: Hyperemesis arising during Patient Disposition: Home, Self-Care Instructions: Hyperemesis Gravidarum (ED) Prescriptions: New ondansetron HCl [Zofran] 4 mg tablet 4 mg PO Q8H PRN (Reason: nausea and vomiting) Qty: 10 RF: 0 No Action nitrofurantoin macrocrystal 100 mg capsule 100 mg PO BID 7 Days Qty: 14 RF: 0 ondansetron HCl [Zofran] 4 mg tablet 4 mg PO Q8H PRN (Reason: nausea and vomiting) Qty: 10 RF: 0 epinephrine [EpiPen 2-Chris] 0.3 mg/0.3 mL auto-injector 0.3 mg IM ONCE PRN (Reason: anaphylaxis) Qty: 2 RF: 0 sertraline 50 mg tablet 0 mg PO RF: 0 trazodone 100 mg tablet 100 mg PO BEDTIME PRNRF: 0 hydroxyzine HCl 25 mg tablet 25 - 50 mg PO BID PRN (Reason: Anxiety) RF: 0 aripiprazole 5 mg tablet 5 mg PO BEDTIME RF: 0 propranolol 10 mg tablet 10 mg PO BID RF: 0 prenat.vits,sheyla,[id number] Tablet 1 tab PO BEDTIME RF: 0 Referrals: Eduard Harrington MD [Primary Care Provider] - 3 days
[2021-02-26 00:58] VITALS: BP 115/82; PULSE 97; RESP 18; TEMP 36.3; O2SAT 100; BMI 26.9
[2021-02-26] MEDS: ondansetron HCL 4 MG/2 ML VIAL IVPUSH (01:18)
[2021-02-26] MEDS: 0.9 % Sodium Chloride 1,000 ML 999 ML IVCONT ×2 (01:18→02:04)
--- NOTE | 2021-02-26 02:05 | PC.NURSE ---
pt resting with her eyes shut, reports feeling a little better, no vomiting since her arrival to the ed
[2021-02-26 03:35] LABS: Appearance Urine HAZY; Color Urine YELLOW; Glucose Urine UA NEG (NEG); Leukocyte Esterase Urine NEG (NEG); Nitrite Urine NEG (NEG); Specific Gravity - Urine 1.015 (1.005-1.025); Urine Blood NEG (NEG); Urine Ketones 40 MG/DL (NEG); Urine Protein NEG (NEG-TRACE)
[2021-02-26 03:39] VITALS: BP 92/49; PULSE 65; RESP 16; O2SAT 100
--- NOTE | 2021-02-26 04:26 | PC.NURSE ---
pt able to tolerate po liquids
== END 2021-02-26 04:45 | disposition home or self-care (01) ==
PROVIDERS: Emergency Provider Emergency Medicine; PCP Obstetrics & Gynecology
DX: O21.0 Mild hyperemesis gravidarum (principal); R19.7 Diarrhea, unspecified; Z3A.11 11 weeks gestation of pregnancy; Z79.899 Other long term (current) drug therapy
CPT/HCPCS: 81003; 96361; 96374; 99284; J2405

== ENCOUNTER 2021-03-03 11:33 | Outpatient (REF) | payer OTHER, SELFPAY ==
--- NOTE | ~2021-03-03 | US_ITS ---
EXAMINATION: OBSTETRICAL ULTRASOUND, FIRST TRIMESTER HISTORY: A 21-year-old at 12.2 weeks of gestation NT screening COMPARISON: 01/25/2021 TECHNIQUE: Real time transabdominal imaging with color and M-mode Doppler. FINDINGS: A single, live IUP CRL of 60.9 mm c/w 12.4wks is noted. Heart Rate: 158 beats per minute. Normal yolk sac seen. NT was 1.94.mm. NB Present The embryo appears sonographically wnl for this GA. Both maternal ovaries are seen and appear normal. GESTATIONAL AGE: 1. Established GA: 12.2 wks 2. GA from [facility]: 12.4 wks ESTIMATED DATE OF DELIVERY: 1. Established [facility]: 09/13/2021 2. [facility] from [facility]: 09/11/2021 US/US OB 1T nuc measure IMPRESSION: 1. A single live IUP 2. Size equals dates 3. NT of 1.94 mm MFM Consultation: I reviewed the ultrasound findings along with significance of NT measurement. The NT of less than 3mm is generally reassuring. However, the sensitivity for T21 detection is only 60%. I reviewed the availability of serum aneuploidy screening which includes cell-free DNA and placental protein based tests. I discussed the sensitivity, false-positive rate, and other limitations associated with each test. I also reviewed the availability of invasive diagnostic tests that are associated small but definite risk of miscarriage. We also reviewed the differences between screening tests and diagnostic tests. After our discussion, she opted for the First trimester screening that is based on cell-free DNA or non-invasive testing (NIPT). The result will be faxed to your office in approximately 7 days. A follow up at 18 weeks for survey has been scheduled. Thank you very much for this referral. Total time 30 minutes. The time spent was devoted to counseling the patient about the disease and diagnosis, coordinating care including reviewing her records, pertinent lab data and studies, as well as discussing diagnostic evaluation and workup, plan therapeutic interventions and future disposition of care. This includes any additional research needed to obtain further information in formulating the plan of care of this patient. This note was generated with a voice recognition program. Please excuse any errors which may have been overlooked during my review of this note. Sometimes these errors may affect the content or meaning of a given sentence.
== END 2021-03-03 11:34 | disposition home or self-care (01) ==
LOC: HO.US 11:33
PROVIDERS: Visit Provider Obstetrics & Gynecology
DX: Z34.91 Encounter for supervision of normal pregnancy, unspecified, first trimester (principal); Z3A.10 10 weeks gestation of pregnancy
CPT/HCPCS: 76813

== ENCOUNTER 2021-03-10 11:14 | Outpatient (REF) | payer OTHER, SELFPAY ==
[2021-03-11 01:56] LABS: CT PCR NOT DETECTED (Not Detect.); NG PCR NOT DETECTED (Not Detect.)
[2021-03-11 15:20] LABS: BV Int Neg Control Negative (Negative); BV Int Pos Control Positive (Positive)
== END 2021-03-10 11:15 | disposition home or self-care (01) ==
LOC: HO.LAB 11:14
PROVIDERS: PCP Obstetrics & Gynecology; Visit Provider Advanced Practice Midwife
DX: O26.891 Other specified pregnancy related conditions, first trimester (principal); R56.9 Unspecified convulsions; O99.341 Other mental disorders complicating pregnancy, first trimester; F31.9 Bipolar disorder, unspecified; Z3A.13 13 weeks gestation of pregnancy; Z20.2 Contact with and (suspected) exposure to infections with a predominantly sexual mode of transmission
CPT/HCPCS: 87480; 87491; 87510; 87591; 87660; 99212

== ENCOUNTER → 2021-04-05 11:04 | Outpatient (BNVA) | payer OTHER, SELFPAY | PROVIDERS: PCP Internal Medicine; Visit Provider Advanced Practice Midwife | DX: O99.352 Diseases of the nervous system complicating pregnancy, second trimester (principal); R56.9 Unspecified convulsions; Z3A.17 17 weeks gestation of pregnancy; Z36.3 Encounter for antenatal screening for malformations | CPT/HCPCS: 81003; 99212 ==

== ENCOUNTER 2021-04-06 11:45 | Outpatient (REF) | payer OTHER, SELFPAY ==
[2021-04-09 14:07] LABS: HCV Log PCR <1.18 NOT DETECTED Log IU/mL (NOT DETECTED); HepC Viral Load <15 NOT DETECTED IU/mL (NOT DETECTED)
== END 2021-04-06 11:46 | disposition home or self-care (01) ==
LOC: HO.LAB 11:45
PROVIDERS: PCP Internal Medicine; Visit Provider Advanced Practice Midwife
DX: Z34.92 Encounter for supervision of normal pregnancy, unspecified, second trimester (principal); Z36.3 Encounter for antenatal screening for malformations
CPT/HCPCS: 36415; 87522

== ENCOUNTER 2021-04-14 09:58 | Outpatient (REF) | payer OTHER, SELFPAY ==
--- NOTE | ~2021-04-14 | US_ITS ---
EXAMINATION: US OBSTETRICAL CLINICAL INFORMATION: 21-year-old at 18.2 weeks of gestation Screening for anomaly COMPARISON: 03/03/2021 TECHNIQUE: Real-time transabdominal ultrasound was performed using C1-5 megahertz transducer. FINDINGS: A single, active, fetus is seen in breech presentation. The placenta is posterior without previa, and the amniotic fluid volume is wnl. MEASUREMENTS: 1. Biparietal Diameter: 4.1 cm; 18.4 wks 2. Occipital Frontal Diameter: 5.7 cm 3. Head Circumference: 15.9 cm; 18.6 wks 4. Abdominal Circumference: 13.3 cm; 18.6 wks 5. Femur Length: 2.7 cm; 18.2 wks 6. Humerus Length: 2.8 cm; 19.0 wks 7. Tibia Length: 2.4 cm; 18.4 wks 8. Ulna Length: 2.6 cm; 19.3 wks 9. Lateral ventricle: 0.5 cm 10. Cerebellum: 1.8 cm; 18.3 wks 11. Cisterna Magna: 0.32 cm 12. Nuchal Fold: 3.4 mm 13. Heart Rate: 155 beats per minute Rt ovary: normal Lt ovary: normal Cervical length 3.4 cm on T/A. GESTATIONAL AGE: 1. Established GA: 18.2 wks 2. GA from [facility]: 18.5 wks ESTIMATED DATE OF DELIVERY: 1. Established [facility]: 09/13/2021 2. [facility] from [facility]: 09/10/2021 ANATOMY: Hypoplastic left outflow track is noted. The aortic diameter is approximately 0.2 cm while the right pulmonary vein diameter is 0.4. The left ventricle is of normal length but narrower. The right ventricle appears prominent compared to the left. Aside from the asymmetry in size, the outflows were of correct anatomic relationship. The visualized anatomy includes but not limited to: 1. Cranium: Normal 2. Intracranial anatomy: cavum septum pellucidi, lateral ventricles, choroid plexus, cerebellum, posterior fossa, third and fourth ventricles. 3. face: orbits, lip/palate, profile, nasal bone 4. Heart: Hypoplastic aortic outlet, ascending aorta and aortic arch. Left ventricle is narrower but normal length. 5. Diaphragm: Normal 6. Abdominal wall: Normal 7. Cord Insertion: Normal 8. Spine: Cervical, thoracic, lumbar, sacral. 9. Stomach: Normal size and shape 10. Right Kidney: Normal 11. Left Kidney: Normal 12. 3 vessel cord: Normal 13. Upper extremity: Open hands, fifth digit. 14. Lower extremity: Tibia, fibula, bilateral feet. 15. Bladder: Normal 16. Genitalia: Male, patient not aware US/US OB /maternal detail IMPRESSION: 1. Single, living, intrauterine with appropriate biometry. 2. Hypoplastic left aortic outflow and arch. The left ventricle is smaller than the right but does not appear to be hypoplastic. Remainder of the survey was within normal limits. 3. Normal amniotic fluid volume DISCUSSION: I reviewed today's ultrasound findings. 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 If this is confirmed, the baby will most likely need to deliver in a tertiary Medical Center where pediatric cardiology and surgery are available. She had low risk N IPT. She will be referred to the [facility] for echocardiography, pediatric cardiology and genetic counseling. She was informed that the baseline incidence of congenital abnormalities is approximately 3-5%. Not all these conditions are diagnosable in utero. RECOMMENDATIONS: 1. Pediatric cardiology and echo referral to [facility]. Thank you for allowing me to participate in her care. Total time 40 minutes. The time spent was devoted to counseling the patient about the disease and diagnosis, coordinating care including reviewing her records, pertinent lab data and studies, as well as discussing diagnostic evaluation and workup, plan therapeutic interventions and future disposition of care. This includes any additional research needed to obtain further information in formulating the plan of care of this patient. This note was generated with a voice recognition program. Please excuse any errors which may have been overlooked during my review of this note. Sometimes these errors may affect the content or meaning of a given sentence.
== END 2021-04-14 09:59 | disposition home or self-care (01) ==
LOC: HO.US 09:58
PROVIDERS: PCP Internal Medicine; Visit Provider Advanced Practice Midwife
DX: Z36.3 Encounter for antenatal screening for malformations (principal); O26.892 Other specified pregnancy related conditions, second trimester; R56.9 Unspecified convulsions; Z3A.18 18 weeks gestation of pregnancy
CPT/HCPCS: 76811

== ENCOUNTER 2022-01-23 10:53 | Emergency (ER) | payer OTHER, SELFPAY ==
[2022-01-23 11:10] VITALS: BP 102/61; PULSE 79; RESP 16; TEMP 36.8; O2SAT 100; BMI 31.8
--- NOTE | 2022-01-23 11:31 | ED_ITS ---
HPI - Skin/Abscess/Foreign Bdy General Chief complaint: Skin/Abscess/Foreign Body Stated complaint: cyst in coccyx Time Seen by Provider: 01/23/22 11:31 Source: patient Mode of arrival: ambulatory Limitations: no limitations History of Present Illness HPI narrative: 21-year-old female previously healthy here with swelling and redness to the tailbone for 2 days. No fevers or chills. Related Data Home Medications Medication Instructions Recorded Confirmed prenat.vits,sheyla,[id number] 1 tab PO BEDTIME 01/25/21 04/05/21 Previous Rx's Medication Instructions Recorded epinephrine 0.3 mg/0.3 mL 0.3 mg (0.3 mL) IM ONCE PRN 04/29/20 injection, auto-injector (EpiPen anaphylaxis #2 ea 2-Chris) doxycycline monohydrate 100 mg 100 mg PO BID #20 caps 01/23/22 capsule Allergies Allergy/AdvReac Type Severity Reaction Status Date / Time amoxicillin [AMOXICILLIN] Allergy Severe Hives Verified 04/05/21 11:31 cefadroxil [Cefadroxil] Allergy Severe anaphylaxis Verified 04/05/21 11:31 peanut [PEANUT] Allergy Severe LIP, Verified 04/05/21 11:31 TONGUE SWELLING. Review of Systems Review of Systems: Yes all other systems are reviewed and are negative Constitutional: Constitutional: Reports no additional constitutional complaints, Denies body ache(s), Denies chills, Denies fever(s), Denies headache(s) and Denies weakness Eyes: Eyes: Reports no additional eye complaints and Denies change in vision ENT: Reports system reviewed and no additional complaints, except as documented, Denies dizziness, Denies headache(s), Denies nasal congestion, D enies nasal discharge and Denies neck pain Cardiovascular: Cardiovascular: Reports no additional cardiovascular complaints, Denies chest pain, Denies leg edema and Denies dyspnea Respiratory: Respiratory: Reports no additional respiratory complaints, Denies cough and Denies dyspnea Gastrointestinal: Gastrointestinal: Reports no additional gastrointestinal complaints, Denies abdominal pain, Denies diarrhea, Denies nausea and Denies vom iting Genitourinary: Genitourinary: Reports no additional female genitourinary complaints and Denies urinary incontinence Musculoskeletal: Musculoskeletal: Reports no additional musculoskeletal complaints, Denies back pain, Denies arthralgias, Denies joint swelling, Denies neck pain, Denies numbness and Denies tingling Integumentary/Breasts: Skin/Breast: Reports system reviewed and no additional complaints, except as docu, Reports swelling, Reports erythema and Denies rash Neurologic: Reports system reviewed and no additional complaints, except as documented, Denies dizziness, Denies headache(s), Denies numbness, Denies Sensory deficit (Neuro), Denies tingling and Denies weakness PMFSH Past Medical History Attestation statement: The following information was validated with the patient. Source: old records reviewed and nursing notes reviewed Medical History Anxiety and depression Bipolar 1 disorder Food allergy, peanut Hospital discharge follow-up Insomnia Lower back pain Lumbago with sciatica, right side Positive hepatitis C antibody test Seizures Sprain, low back Surgical History H/O removal of cyst History of wisdom tooth extraction Family History Family History Father PTSD (post-traumatic stress disorder) High cholesterol Mother Loss of hearing Social History Social History Household Members: Family Housing: House Alcohol intake: never Patient Tobacco Use Status: Never used Tobacco Substance Use Type: Marijuana Trauma History: none voiced Special beatriz needs: No Agree to transfusion: Yes Advance Directives: No Advance Directives Information Provided: Yes Physical Exam Vital Signs: Vital Signs: Last Vital Signs Temp 98.2 F 01/23/22 11:10 Pulse 79 01/23/22 11:10 Resp 16 01/23/22 11:10 BP 102/61 01/23/22 11:10 Pulse Ox 100 01/23/22 11:10 O2 Del Method 01/23/22 11:10 BMI result Body Mass Index 31.8 Const: General: healthy appearing Nutritional Appearance: average body habitus Orientation/consciousness: oriented to person and patient oriented x3 Limitations: no limitations HEENT: Head: Yes normal to inspection Ears: external ears normal General nose exam: Normal external nose present Mouth: Normal oral and palatal mucosa present and oropharynx normal Throat: Yes posterior oropharynx normal Eyes: General: appearance normal, both eyes and all related structures Neck: Other: supple Neck: Yes normal visual inspection Chest: Chest palpation & inspection: normal inspection of the chest Resp: Auscultation: clear to auscultation bilaterally Cardio: Jugular venous distension: no JVD Rate: regular rate Rhythm: regular rhythm Heart sounds: S1 normal heart sound present and S2 normal heart sound present GI: Inspection: Yes normal to inspection Palpation (GI): Soft to palpation, nontender and No hepatosplenomegaly present Auscultation: normal bowel sounds : General: Yes no CVA tenderness Back/Spine/Pelvis: Back: no CVA tenderness Back/spine/pelvis image: 1. Swelling and redness with fluctuance Skin: General skin exam: no rashes or lesions noted Neuro: General: oriented to person and patient oriented x3 Cranial nerves: Yes CN's II-XII intact bilaterally Motor exam (neuro): 5/5 motor strength present throughout Sensory Exam: No Sensory deficit (Neuro) Extrem: General: Yes normal to inspection Psych: Appearance: grossly normal Course Course Course Narrative: See procedure note. Patient tolerated well. Reviewed worrisome signs and symptoms with the patient and when to return to the emergency department. Comfortable discharge home. MDM - Skin/Abscess/Foreign Bdy MDM Narrative Medical decision making narrative: 21-year-old female here with pilonidal abscess. See procedure note for I and D Medical Records Attestation: I reviewed the patient's medical records. Lab Data Attestation: I reviewed the patient's lab results. Procedures Abscess I/D Site: other (Pilonidal) Local Anesthetic: lidocaine 1% Amount of anesthesia used (mL): 5 Technique: incised with blade Amount of fluid expressed (mL): 15 Sent for culture/gram staining?: No Irrigation: No Packing used?: iodoform Discharge Plan Discharge Clinical Impression: Pilonidal abscess Patient Disposition: Home, Self-Care Instructions: Pilonidal Cyst (ED) Additional Instructions: Return for packing removal in 48 hours Alternate Motrin or Tylenol for pain or fever Prescriptions: New doxycycline monohydrate 100 mg capsule 100 mg PO BID Qty: 20 0RF No Action epinephrine [EpiPen 2-Chris] 0.3 mg/0.3 mL auto-injector 0.3 mg IM ONCE PRN (Reason: anaphylaxis) Qty: 2 0RF Rx Instructions: for 2 doses prenat.vits,sheyla,[id number] Tablet 1 tab PO BEDTIME Referrals: Chilango Dozier MD [Primary Care Provider] - Stand Alone Forms: Work/School Release Interventions: ED Discharge Assessment Last Done: 01/23/22 12:08 Discharge Date/Time: 01/23/22 12:10
[2022-01-23] MEDS: Lidocaine HCl 1 % MPF 5 ML VIAL SUBCUT (11:39)
== END 2022-01-23 12:10 | disposition home or self-care (01) ==
PROVIDERS: Emergency Provider Emergency Medicine; PCP Internal Medicine
DX: L05.01 Pilonidal cyst with abscess (principal)
CPT/HCPCS: 10060; 99282; 99284

== ENCOUNTER 2022-01-25 10:58 | Emergency (ER) | payer OTHER, SELFPAY ==
[2022-01-25 11:11] VITALS: BP 132/70; PULSE 92; RESP 16; TEMP 36.6; O2SAT 100; BMI 31.8
--- NOTE | 2022-01-25 13:05 | ED.GENADULT ---
HPI - General Adult General Chief complaint: General Medical Stated complaint: packing removal Time Seen by Provider: 01/25/22 12:36 Source: patient Mode of arrival: ambulatory History of Present Illness HPI narrative: 21-year-old female with a past medical history of pilonidal abscess s/p I&D in the ED on 01/23/2022 presenting to ED for packing removal. Reports compliance with previously prescribed antibiotics. Reports area much improved, still with some drainage. Denies fever, chills, swelling, redness Onset (ago): day(s) Related Data Home Medications Medication Instructions Recorded Confirmed prenat.vits,sheyla,ais-qeut-[id number] 1 tab PO BEDTIME 01/25/21 04/05/21 Previous Rx's Medication Instructions Recorded epinephrine 0.3 mg/0.3 mL 0.3 mg (0.3 mL) IM ONCE PRN 04/29/20 injection, auto-injector (EpiPen anaphylaxis #2 ea 2-Chris) doxycycline monohydrate 100 mg 100 mg PO BID #20 caps 01/23/22 capsule Allergies Allergy/AdvReac Type Severity Reaction Status Date / Time amoxicillin [AMOXICILLIN] Allergy Severe Hives Verified 01/25/22 11:11 cefadroxil [Cefadroxil] Allergy Severe anaphylaxis Verified 01/25/22 11:11 peanut [PEANUT] Allergy Severe LIP, Verified 01/25/22 11:11 TONGUE SWELLING. Review of Systems Review of Systems: Constitutional: No Fever, No Chills ENT/Mouth: No Ear Pain, No Nasal Congestion, No sore throat, No Rhinorrhea, No Swallowing Difficulty Cardiovascular: No Chest Pain, No SOB Respiratory: No Cough Gastrointestinal: No Nausea, No Vomiting, No Diarrhea, No Constipation, No Abdominal pain Genitourinary: No Dysuria, No Urinary Frequency, No Hematuria, No Flank Pain Musculoskeletal: No joint pain, No Myalgias, No Joint Swelling Skin: +abscess, No rash Neuro: No Weakness, No Numbness, No Paresthesias Yes all other systems are reviewed and are negative Constitutional: Constitutional: Reports as per [facility] Past Medical History Attestation statement: The following information was validated with the patient. Medical History Anxiety and depression Bipolar 1 disorder Food allergy, peanut Hospital discharge follow-up Insomnia Lower back pain Lumbago with sciatica, right side Positive hepatitis C antibody test Seizures Sprain, low back Surgical History H/O removal of cyst History of wisdom tooth extraction Family History Family History Father PTSD (post-traumatic stress disorder) High cholesterol Mother Loss of hearing Social History Social History Household Members: Family Housing: House Alcohol intake: never Patient Tobacco Use Status: Never used Tobacco Substance Use Type: Marijuana Trauma History: none voiced Special beatriz needs: No Agree to transfusion: Yes Advance Directives: No Advance Directives Information Provided: No Physical Exam ED Vital Signs: Vital Signs - 24 hr 01/25/22 11:11 Temperature 97.8 F Pulse Rate 92 Respiratory Rate 16 Blood Pressure 132/70 Pulse Oximetry 100 Oxygen Delivery Method Room Air BMI result Body Mass Index 31.8 Const General: cooperative, healthy appearing and no acute distress Orientation/consciousness: patient oriented x3 Limitations: no limitations HENMT Head: Yes normal to inspection and Yes atraumatic Ears: hearing grossly normal bilaterally General nose exam: Normal external nose present Face and sinus: Yes normal facial exam Eyes General: appearance normal, both eyes and all related structures EOM: EOMs intact bilaterally Neck Neck: Yes normal visual inspection and Yes no meningeal signs Resp Effort & Inspection: normal respiratory effort and no respiratory distress Cardio Rate: regular rate Heart sounds: S1 normal heart sound present and S2 normal heart sound present GI Inspection: Yes normal to inspection Other: + pilonidal abscess with packing in place. No surrounding cellulitis/warmth. Scant bloody discharge expressed. No fluctuance/induration. No streaking. Skin Rashes: no rashes Wounds: no wounds Neuro General: patient oriented x3, tone normal and no meningeal signs Gait exam (Neuro): Normal gait present Extrem General: Yes normal to inspection Procedures Procedure Narrative Procedure Narrative: Packing removal: Packing removed from pilonidal abscess. No complications Medical Decision Making MDM Narrative Medical decision making narrative: 21-year-old female with a past medical history of pilonidal abscess s/p I&D in the ED on 01/23/2022 presenting to ED for packing removal. On exam vital signs stable, NAD/nontoxic, final any abscess noted with packing in place, packing removed, scant amount of bloody discharge expressed. No overlying cellulitis, no fluctuance or induration Discussed importance of antibiotic compliance and PCP follow-up/general surgeon Medical Records Medical records reviewed: Yes I reviewed the patient's medical records. Lab Data Lab results reviewed: Yes I reviewed the patient's lab results. Discharge Plan Discharge Clinical Impression: Abscess packing removal Patient Disposition: Home, Self-Care Instructions: Abscess Follow-up (ED) Additional Instructions: Continue taking previously prescribed antibiotics. Take Tylenol and Motrin as needed. Practice warm soaks to help express infection. If area begins to look worse, becomes more swollen/red, if continued drainage or fever return to the ED. Follow up with her doctor/general surgery as needed Prescriptions: No Action epinephrine [EpiPen 2-Chris] 0.3 mg/0.3 mL auto-injector 0.3 mg IM ONCE PRN (Reason: anaphylaxis) Qty: 2 0RF Rx Instructions: for 2 doses doxycycline monohydrate 100 mg capsule 100 mg PO BID Qty: 20 0RF prenat.vits,sheyla,rxa-hayk-niosn Tablet 1 tab PO BEDTIME Referrals: Donnie Ayon MD [Physician] - Chilango Dozier MD [Primary Care Provider] - Interventions: ED Discharge Assessment Last Done: 01/25/22 13:19 Discharge Date/Time: 01/25/22 13:20
== END 2022-01-25 13:20 | disposition home or self-care (01) ==
PROVIDERS: Emergency Provider Emergency Medicine Emergency Medical Services; PCP Internal Medicine
DX: Z48.01 Encounter for change or removal of surgical wound dressing (principal); L05.01 Pilonidal cyst with abscess
CPT/HCPCS: 99283

== ENCOUNTER → 2022-05-10 08:39 | Outpatient (BNVA) | payer OTHER, SELFPAY | PROVIDERS: PCP Internal Medicine; Referring Provider Internal Medicine; Visit Provider Surgery | DX: L05.01 Pilonidal cyst with abscess (principal) | CPT/HCPCS: 10081; 99202 ==

== ENCOUNTER → 2022-05-24 09:41 | Outpatient (BNVA) | payer OTHER, SELFPAY | PROVIDERS: PCP Internal Medicine; Referring Provider Internal Medicine; Visit Provider Physician Assistant Surgical | DX: Z48.817 Encounter for surgical aftercare following surgery on the skin and subcutaneous tissue (principal); L05.91 Pilonidal cyst without abscess | CPT/HCPCS: 99212 ==

== ENCOUNTER 2022-06-19 08:32 | Outpatient (REF) | payer OTHER, SELFPAY ==
--- NOTE | ~2022-06-19 | US_ITS ---
EXAMINATION: US ABDOMEN LIMITED CLINICAL INFORMATION: Right upper quadrant pain. 22-year-old female. COMPARISON: CT abdomen and pelvis 11/08/2020. Ultrasound abdomen 07/24/2019. TECHNIQUE: Real-time imaging of the right upper quadrant abdominal viscera. FINDINGS: PANCREAS: The visualized portions are normal. LIVER: The liver is normal in size. The liver contour is normal. Normal echogenicity. No focal hepatic lesion. There is no intrahepatic biliary duct dilatation seen. GALLBLADDER: Normal. The gallbladder is physiologically distended without evidence of stones, sludge, polyps, wall thickening or pericholecystic fluid. COMMON BILE DUCT: Normal in caliber measuring 0.3 cm in diameter. RIGHT KIDNEY: Normal. No hydronephrosis. No renal calculi or focal parenchymal lesions. The kidney measures 9.8 cm in maximum dimension. FREE FLUID: None. US/US abdomen limited IMPRESSION: Normal ultrasound exam of the right upper quadrant.
== END 2022-06-19 08:33 | disposition home or self-care (01) ==
LOC: HO.US 08:32
PROVIDERS: PCP Internal Medicine; Visit Provider Internal Medicine
DX: R10.11 Right upper quadrant pain (principal)
CPT/HCPCS: 76705

== ENCOUNTER 2022-07-03 06:04 | Day surgery (SDC) | payer OTHER, SELFPAY ==
[2022-06-27 13:57] VITALS: BMI 30.9
--- NOTE | 2022-07-02 09:16 | HO.ANESPROP2 ---
Documented by User: Feli Rhoades NP 07/02/22 09:17 HPI - Anesthesia Eval Consult details Narrative: 22yo F for Excision Pilonidal Cyst PMFSH Active Problems Active Problems: All Active Problems (Updated 06/27/22 @ 13:56 by Ann Marie Burciaga, RN) Physical exam (Acute) Pelvic pain (Acute) Family planning (Acute) Somatic dysfunction of right sacroiliac joint (Acute) Lumbar radiculopathy (Acute) Nexplanon insertion (Acute) Side effects of treatment (Acute) Nexplanon removal (Acute) Family planning advice (Acute) Candidal vulvovaginitis (Acute) Chlamydia (Acute) Hepatitis C (Acute) SI (sacroiliac) joint dysfunction (Acute) Early stage of (Acute) Bipolar 1 disorder (Acute) Tetrahydrocannabinol (THC) use disorder, mild, abuse (Acute) Seizures (Acute) Supervision of normal in second trimester (Acute) Encounter for screening for malformation using ultrasound (Acute) Pilonidal cyst (Acute) Pilonidal abscess (Acute) Seizures (Acute) Positive hepatitis C antibody test (Acute) Food allergy, peanut (Acute) Lumbago with sciatica, right side (Acute) Anxiety and depression (Acute) Insomnia (Acute) Hospital discharge follow-up (Acute) Lower back pain (Acute) Past Medical History Medical History (Updated 06/27/22 @ 13:56 by Ann Marie Burciaga, RN) Anxiety and depression Bipolar 1 disorder Food allergy, peanut Hospital discharge follow-up Insomnia Lower back pain Lumbago with sciatica, right side Pilonidal abscess Positive hepatitis C antibody test Seizures Sprain, low back Family History Family History Father PTSD (post-traumatic stress disorder) High cholesterol Mother Loss of hearing Surgical History Surgical History H/O removal of cyst History of wisdom tooth extraction Social History Social History Household Members: Family Housing: House Are you a primary progressive care manager to a significant other at home: No Do you presently have visiting nurse or other home services: No Alcohol intake: never Patient Tobacco Use Status: Never used Tobacco Substance Use Type: Marijuana Trauma History: none voiced Special beatriz needs: No Agree to transfusion: Yes Meds Allergies Allergy/AdvReac Type Severity Reaction Status Date / Time amoxicillin [AMOXICILLIN] Allergy Severe Hives Verified 06/27/22 13:56 cefadroxil [Cefadroxil] Allergy Severe anaphylaxis Verified 06/27/22 13:56 peanut [PEANUT] Allergy Severe LIP, Verified 06/27/22 13:56 TONGUE SWELLING. Exam Exam Date and Time: July 02, 2022 0916 Height,Weight and Vital Signs: Height 4 ft 11 in Weight 69.4 kg Assessment and Plan Assessment Anesthesia Assessment: Chart Reviewed Documented by User: Darryl Merida MD 07/03/22 05:12 [facility] Past Medical History Medical History (Updated 06/27/22 @ 13:56 by Ann Marie Burciaga RN) Anxiety and depression Bipolar 1 disorder Food allergy, peanut Hospital discharge follow-up Insomnia Lower back pain Lumbago with sciatica, right side Pilonidal abscess Positive hepatitis C antibody test Seizures Sprain, low back Family History Family History Father PTSD (post-traumatic stress disorder) High cholesterol Mother Loss of hearing Family history of problems with anesthesia: No Surgical History Surgical History H/O removal of cyst History of wisdom tooth extraction History of Problems with Anesthesia: No Social History Social History Household Members: Family Housing: House Are you a primary progressive care manager to a significant other at home: No Do you presently have visiting nurse or other home services: No Alcohol intake: never Patient Tobacco Use Status: Never used Tobacco Substance Use Type: Marijuana Trauma History: none voiced Special beatriz needs: No Agree to transfusion: Yes Meds Allergies Allergy/AdvReac Type Severity Reaction Status Date / Time amoxicillin [AMOXICILLIN] Allergy Severe Hives Verified 06/27/22 13:56 cefadroxil [Cefadroxil] Allergy Severe anaphylaxis Verified 06/27/22 13:56 peanut [PEANUT] Allergy Severe LIP, Verified 06/27/22 13:56 TONGUE SWELLING. Exam Airway Mallampati Class: II TM Dist: >3cm Neck ROM: Full Loose/Missing/Broken Teeth: No Heart: RRR Lungs: CTA Assessment and Plan Final Anesthetic Review Family History of Problems with Anesthesia: No History of Problems with Anesthesia: No NPO: Yes ASA Class: II Final Preanesthetic Review: No Changes in Pt Med Stat, Meds/Allgs Chart Reviewed, Consent Obtained/Reviewed and Anes Risks/Benef Reviewed Patient Risk: Intermediate Procedure Risk: Intermediate Anesthetic Plan Anesthetic Plan: GA Disposition: Standard PACU
[2022-07-03] VITALS (9 sets, daily range): BP systolic 110–137; BP diastolic 45–84; PULSE 57–91; RESP 16–18; TEMP 36.2–36.8; O2SAT 98–100
[2022-07-03] MEDS: Lactated Ringers 1,000 ML 100 ML IVCONT (06:32)
[2022-07-03 06:34] LABS: UPreg QC Valid YES; Urine Pregnancy NEGATIVE (NEGATIVE)
[2022-07-03] MEDS: vancomycin HCL 1,000 MG in 0.9 % Sodium Chloride 250 ML 270 MG IV (06:46)
--- NOTE | 2022-07-03 07:09 | PC.NURSE ---
pt c/o redness and itch anesthesia aware abx stoppped ls clear no sob noted facial/chest redness noted no rash noted
--- NOTE | 2022-07-03 07:10 | PC.NURSE ---
dr carlos at bedside order to slow abx down
--- NOTE | 2022-07-03 07:24 | MHC.SHP ---
Pre-Procedural Eval Section A Date of Service: 07/03/22 Section B Chief Complaint: Pilonidal cyst without abscess Details of Present Illness: has recurrent swelling and tenderness on sacrococcygeal area Relevant Social History: None Present Medications: see Short Stay Collaborative assessment Medical History: Significant History (bipolar d/o, hep C) History of Previous Operations: No relevant previous surgery Allergies: Allergies Allergy/AdvReac Type Severity Reaction Status Date / Time amoxicillin [AMOXICILLIN] Allergy Severe Hives Verified 06/27/22 13:56 cefadroxil [Cefadroxil] Allergy Severe anaphylaxis Verified 06/27/22 13:56 peanut [PEANUT] Allergy Severe LIP, Verified 06/27/22 13:56 TONGUE SWELLING. Review of Systems Sugical H&P ROS: Negative: Constitution, Cardiovascular, Respiratory, Neurological, Psychiatric, Hem-Onc, Allergic/Immunologic, Gastrointestinal, Genitourinary, Musculoskeletal, Integumentary, Endocrine and Eyes/Ears/Nose/Throat Exam Surgical H&P Exam: Normal: HEENT, Normal: Heart, Normal: Lungs, Normal: Extremities, Normal: Abdomen, Normal: Skin and Normal: Neurological Plan Diagnosis/Plan: Unchanged I have reviewed the history and physical and performed a pertinent physical examination on my patient. No changes have occurred unless specified. Time Spent With Patient Time: Total time managing care of this patient today ____ minutes.
--- NOTE | 2022-07-03 07:34 | PC.NURSE ---
less redness noted ls clear vss
--- NOTE | 2022-07-03 08:05 | P.OP_ITS ---
Operative Note Operative Note Date of Service: 07/03/22 Narrative: Preop diagnosis: Pilonidal cyst, sacrococcygeal area Postop diagnosis: The same Procedure: Excision of pilonidal cyst, sacrococcygeal area Surgeon: Jayme Kimbrough MD executive marketing assistant: KEYON Caraballo The patient is a 22-year-old female with recurrent swelling and drainage in the sacrococcygeal area consistent with a pilonidal cyst. She understood the technique of excision under anesthesia and she was aware of the risks, benefits, and alternatives. She was brought to the operating room placed in prone position under general anesthesia via endotracheal tube. The buttocks were retracted with wide tape laterally. A surgical time-out was done. Sacrococcygeal was prepped and draped in usual sterile fashion Examination of this area showed an induration, just to the left of the midline of the cleft, along with a solitary midline pits inferior to this within the gluteal cleft I infiltrated the planned line of incision with lidocaine 1%. I made an elliptical incision around this entire area to include the induration as well as the midline pits using a blade 15. I carried down this incision using a blade 15 through the full-thickness the skin. I used electrocautery to divide through the anus fat around this entire indurated area. I made sure that we were including all the stitch you. This was sent as specimen. I controlled oozing areas with electrocautery. The area of excision was about 3.5 cm long and about 2.5 cm wide. I undermined both edges along the subcutaneous layer to allow closure without tension. I irrigated. Hemostasis was confirmed, I reapposed the deep subcutaneous layer with Dexon 3-0 interrupted sutures. Skin closure was achieved with simple interrupted nylon 2-0 sutures alternating with vertical mattress sutures. The area was infiltrated with Marcaine 0.5% for postop analgesia. Dressings were applied and the procedure was completed The patient tolerated procedure well. There were no immediate complications. Initial and final counts of sponges and instruments were correct. Estimated blood loss was about 20 cc The patient was extubated without difficulty and transferred to the recovery room with stable vital signs.
[2022-07-03] MEDS: Acetaminophen 325 MG TABLET 650 MG PO (08:59)
== END 2022-07-03 09:41 | disposition home or self-care (01) ==
PROVIDERS: Nurse Practitioner; PCP Internal Medicine; Visit Provider Surgery
PROC: (CPT 11771; principal; 2022-07-03 07:30)
DX: L05.91 Pilonidal cyst without abscess (principal); R56.9 Unspecified convulsions; F31.9 Bipolar disorder, unspecified; F41.8 Other specified anxiety disorders; Z79.899 Other long term (current) drug therapy; Z88.0 Allergy status to penicillin; Z88.1 Allergy status to other antibiotic agents; Z91.010 Allergy to peanuts
CPT/HCPCS: 11771; 81025; 88304; J1100; J1885; J2405; J2795; J3370

== ENCOUNTER → 2022-07-12 10:41 | Outpatient (BNVA) | payer OTHER, SELFPAY | PROVIDERS: PCP Internal Medicine; Visit Provider Surgery | DX: Z13.89 Encounter for screening for other disorder (principal) ==

== ENCOUNTER → 2022-07-23 12:59 | Outpatient (BNVA) | payer OTHER, SELFPAY | PROVIDERS: PCP Internal Medicine; Visit Provider Surgery | DX: Z13.89 Encounter for screening for other disorder (principal) ==

== ENCOUNTER 2022-11-29 10:43 | Outpatient (REF) | payer OTHER, SELFPAY ==
[2022-11-29 14:56] LABS: Alanine Aminotransferase 17 U/L (0-31); Anion Gap 8 (12-20); Aspartate Amino Transferase 20 U/L (5-31); Blood Urea Nitrogen 9 mg/dL (9-16); Calcium 9.4 mg/dL (8.4-10.2); Carbon Dioxide 26 mmol/L (22-29); Chloride 110 mmol/L (96-108); Cholesterol 158 mg/dL; Estimated Glomerular Filt Rate > 60; Glucose Fasting 90 mg/dL (60-99); HDL Cholesterol 51 mg/dL; LDL Cholesterol Calculated 86 mg/dl; Potassium 3.9 mmol/L (3.3-5.1); Sodium 140 mmol/L (135-145); Triglycerides 108 mg/dL
== END 2022-11-29 10:44 | disposition home or self-care (01) ==
LOC: HO.HMGCLDS 10:43
PROVIDERS: PCP Internal Medicine; Visit Provider Internal Medicine
DX: Z00.01 Encounter for general adult medical examination with abnormal findings (principal); F32.9 Major depressive disorder, single episode, unspecified; F41.9 Anxiety disorder, unspecified
CPT/HCPCS: 36415; 80048; 80061; 84450; 84460

== ENCOUNTER 2023-06-11 13:40 | Outpatient (AMB) | payer OTHER, SELFPAY ==
[2023-06-11 16:20] VITALS: BP 110/70; PULSE 58; TEMP 36.6; O2SAT 100; BMI 24.9
--- NOTE | 2023-06-11 16:20 | AM.OFFWIN_ITS ---
Intake Vital Signs 06/11/23 16:20 Height 4 ft 11 in Weight 123 lb 6 oz BMI 24.9 BP 110/70 Blood Pressure Location Rt brachial Position Sitting Pulse 58 Pulse Source Pulse Oximeter Temp 97.8 F Temp Source Oral Pulse Oximetry (%) 100 Oxygen Delivery Method Room Air Intake Visit Reasons: EP, right side rib [phone] Intake Note: Pt is here for RT side pain, pt states it started 3 months ago. Pt states her bilruban test came back high Patient Tobacco Use Status: Never used Tobacco Allergies amoxicillin [AMOXICILLIN] Allergy (Severe, Verified 06/11/23 16:23) Hives cefadroxil [Cefadroxil] Allergy (Severe, Verified 06/11/23 16:23) anaphylaxis peanut [PEANUT] Allergy (Severe, Verified 06/11/23 16:23) LIP, TONGUE SWELLING. Do you need a note to return to daycare/school/sports/work: No HPI EP, right side rib [phone] HPI Details 23-year-old female presents to the [facility] for a sick visit. Patient is reporting symptoms of fatigue who. She was in [place] and had blood work done. She reports that her bilirubin was elevated. She reports she has intermittent yellowness on the eye. [facility] Medical History (Updated 11/29/22 @ 10:39 by Bindu Ron MD) Pilonidal abscess Positive hepatitis C antibody test Food allergy, peanut Lumbago with sciatica, right side Anxiety and depression Bipolar 1 disorder Insomnia Hospital discharge follow-up Lower back pain Sprain, low back Seizures Surgical History History of excision of pilonidal cyst (07/03/22) History of wisdom tooth extraction H/O removal of cyst Family History Father PTSD (post-traumatic stress disorder) High cholesterol Mental health disorder Mother Loss of hearing Social History Household Members: Family Both parents involved: Yes Housing: House Are you a primary tire care manager to a significant other at home: No Do you presently have visiting nurse or other home services: No Alcohol intake: never Patient Tobacco Use Status: Never used Tobacco e-Cigarette/Vaping Use: Never Used Substance Use Type: Marijuana Trauma History: none voiced Special beatriz needs: No Agree to transfusion: Yes service: No Current occupational status: employed Cognitive needs: No Hearing needs: No Vision needs: Yes Female Reproductive History Menstrual Age of Menarche: 10 Physical Exam Vital Signs: Last Vital Signs Temp 97.8 F 06/11/23 16:20 Pulse 58 06/11/23 16:20 BP 110/70 06/11/23 16:20 Pulse Ox 100 06/11/23 16:20 Oxygen Delivery Method Room Air 06/11/23 16:20 BMI result Body Mass Index 24.9 Const General: cooperative and healthy appearing Nutritional Appearance: well nourished Orientation/consciousness: patient oriented x3 Limitations: no limitations HEENT Head: Yes normal to inspection Eyes Other: Currently no icterus noticed. General: appearance normal, both eyes and all related structures Neck Neck: Yes normal visual inspection Chest Chest palpation & inspection: normal palpation of entire chest wall Resp Effort & Inspection: normal respiratory effort Neuro General: patient oriented x3 Assessment & Plan Assessment & Plan (1) Fatigue: Code(s): R53.83 - Other fatigue Plan: Blood work has been ordered. Will call her with the results. Coding Level of Care Code Est Pt Level 3 (91133) Diagnoses Fatigue R53.83
== END 2023-06-11 16:30 | disposition home or self-care (01) ==
PROVIDERS: PCP Internal Medicine; Visit Provider Internal Medicine
DX: R53.83 Other fatigue (principal)
CPT/HCPCS: 99213

== ENCOUNTER 2023-06-13 11:43 | Outpatient (REF) | payer OTHER, SELFPAY ==
[2023-06-13 14:07] LABS: Hematocrit 35.8 % (37.0-47.0); Hemoglobin 12.4 g/dl (12.0-16.0); Mean Corpuscular HGB Conc 34.6 g/dl (31.0-35.0); Mean Corpuscular Hemoglobin 31.8 pg (27.0-33.0); Mean Corpuscular Volume 91.8 fL (80.0-98.0); Mean Platelet Volume 10.9 fL (9.4-12.3); Platelet Count 259 X10*3/uL (160-400); Red Cell Distribution Width 12.4 % (11.0-16.0); White Blood Count 8.3 X10*3/uL (4.8-10.8)
[2023-06-13 14:54] LABS: Alanine Aminotransferase 13 U/L (0-31); Albumin Level 4.5 g/dL (3.5-5.0); Alkaline Phosphatase 34 U/L (39-117); Anion Gap 12 (12-20); Aspartate Amino Transferase 19 U/L (5-31); Bilirubin Direct 0.6 mg/dL (0.0-0.5); Bilirubin Total 2.1 mg/dL (0.0-1.0); Blood Urea Nitrogen 9 mg/dL (9-16); Calcium 10.1 mg/dL (8.4-10.2); Carbon Dioxide 28 mmol/L (22-29); Chloride 105 mmol/L (96-108); Estimated Glomerular Filt Rate > 60; Glucose Random 86 mg/dL (60-115); Potassium 3.9 mmol/L (3.3-5.1); Sodium 141 mmol/L (135-145); Total Protein 7.4 g/dL (6.5-8.0)
== END 2023-06-13 11:44 | disposition home or self-care (01) ==
LOC: HO.HMGCLDS 11:43
PROVIDERS: PCP Internal Medicine; Visit Provider Internal Medicine
DX: R53.83 Other fatigue (principal)
CPT/HCPCS: 36415; 80048; 80076; 85027

== ENCOUNTER 2023-07-08 08:38 | Outpatient (REF) | payer OTHER, SELFPAY ==
--- NOTE | ~2023-07-08 | US_ITS ---
EXAMINATION: US ABDOMEN COMPLETE CLINICAL INFORMATION: Unspecified jaundice. COMPARISON: Ultrasound abdomen limited 06/19/2022. CT abdomen and pelvis with contrast 11/08/2020. Ultrasound abdomen complete 07/24/2019. TECHNIQUE: Real-time imaging of the abdominal viscera. Limited visualization due to bowel gas. FINDINGS: PANCREAS: Limited visualization of pancreatic tail and head. Imaged portion of pancreatic body is unremarkable. ABDOMINAL AORTA: Nonaneurysmal. INFERIOR VENA CAVA: Visualized portions are normal. LIVER: Mildly increased hepatic parenchymal heterogeneity and echogenicity could be associated with hepatocellular disease/hepatic steatosis and substantially limits visualization. Correlation with liver function tests and clinical exam recommended to determine further management. GALLBLADDER: No gallstones. No gallbladder wall thickening. COMMON BILE DUCT: Normal in caliber measuring 0.3 cm in diameter. RIGHT KIDNEY: No hydronephrosis. No renal calculi. Limited visualization. The kidney measures 10.5 cm in maximum dimension. LEFT KIDNEY: Xiz-bv-bromq pole 0.2 cm calculus. No hydronephrosis. Limited visualization. The kidney measures 10.0 cm in maximum dimension. SPLEEN: Normal. The spleen measures 10.9 cm in maximum dimension. FREE FLUID: None. US/US abdomen complete IMPRESSION: 1. Mildly increased hepatic parenchymal heterogeneity and echogenicity could be associated with hepatocellular disease/hepatic steatosis and substantially limits visualization. Correlation with liver function tests and clinical exam recommended to determine further management. 2. Left renal 0.2 cm nonobstructive calculus. No hydronephrosis.
== END 2023-07-08 08:39 | disposition home or self-care (01) ==
LOC: HO.HMGCX 08:38
PROVIDERS: PCP Internal Medicine; Visit Provider Internal Medicine
DX: R17 Unspecified jaundice (principal)
CPT/HCPCS: 76700

== ENCOUNTER 2023-07-16 14:05 | Outpatient (AMB) | payer OTHER, SELFPAY ==
--- NOTE | 2023-07-16 14:07 | MHC.PC.OV ---
Vital Signs 07/16/23 14:09 Height 4 ft 11 in Intake Visit Reasons: go over test results/ Allergies amoxicillin [AMOXICILLIN] Allergy (Severe, Verified 07/17/23 00:46) Hives cefadroxil [Cefadroxil] Allergy (Severe, Verified 07/17/23 00:46) anaphylaxis peanut [PEANUT] Allergy (Severe, Verified 07/17/23 00:46) LIP, TONGUE SWELLING. Medication List - Last Reconciled 07/17/23 by Bindu Ron MD aripiprazole 5 mg PO DAILY ibuprofen 600 mg PO Q6H PRN propranolol 10 mg PO BID trazodone 100 mg PO BEDTIME PRN Tobacco use date assessed: 07/16/23 Dental Screening Dental Screen Date: 07/16/23 Did you have a dental visit in the last 12 months?: Yes Did you have a dental problem in the last 6 months where you did not have access to dental care?: No Was dental information given to patient?: Patient has dentist HPI go over test results/ HPI Details SPEC : [id number] DENNISE: -1154 ST ATUS: COMP REQ : [id number] RECD: -[address]: Carlos Tamayo MD COMP: 0 06/13/23-1454 ENTER ED: 06/13/23-[address]: Bindu Ron MD ORDE RED: Liver Panel, BMP Test Result Flag Refere nce Sodium 141 135-145 mmol/L [place] m 3.9 3.3-5.1 mmol/L C L 10 5 96-108 mmol /L CO2 28 22-29 mmol/L Gap 12 12-20 BUN 9 9-16 mg/dL Creat 0.71 0.5-1.4 mg/dL EGFR > 60 NOTE: For -Citizen Of [place] individu als, multiply the result by 1.210. Chronic Kidney Disease: E stimated GFR < 60 mL/min/1.73m2 Severe Kidney D isease: Estimated GFR < 15 mL/min/1 .73m2 Glucose, R andom 86 60 -115 mg/dL CA 10.1 # 8.4-10.2 mg/dL Total Bili 2.1 H 0.0-1.0 mg/dL Direct George i 0.6 H 0. 0-0.5 mg/dL AST (GOT) 19 5-31 U/L ALT (GPT) 13 0-31 U/L Protein, Tot al 7.4 6.5- 8.0 g/dL Alb 4.5 3.5-5.0 g/dL Al k Phos 34 L 39-117 U/L 23-year-old lady here today to go over results of recent labs done. She was r ecently seen at the walk-in clinic complaining of easy fatigability, patient that whe she was in [place], she was found to have elevated liver enzymes . Repeat labs done at the walk-in showed presence of elevated total and direct bilirubin and low alkaline phosphatase, ultrasound of the abdomen showed mildly increased hepatic parenchymal heterogeneity and echogenicity, could be associated with hepatocellular disease/hepatic steatosis, Left renal 0.2 cm nonobstructive calculus was also seen . No hydronephrosis. She. had positive hepatitis C antibody, but negative viral load, and negative for HIV , hepatitis-B rand A infection. [facility] Medical History (Updated 07/17/23 @ 05:38 by Bindu Ron MD) History of jaundice Serum total bilirubin elevated Pilonidal abscess Positive hepatitis C antibody test Food allergy, peanut Lumbago with sciatica, right side Anxiety and depression Bipolar 1 disorder Insomnia Hospital discharge follow-up Lower back pain Sprain, low back Seizures Surgical History History of excision of pilonidal cyst (07/03/22) History of wisdom tooth extraction H/O removal of cyst Family History Father PTSD (post-traumatic stress disorder) High cholesterol Mental health disorder Mother Loss of hearing Social History Household Members: Family Both parents involved: Yes Housing: House Are you a primary health care assistant to a significant other at home: No Do you presently have visiting nurse or other home services: No Alcohol intake: never Patient Tobacco Use Status: Never used Tobacco e-Cigarette/Vaping Use: Never Used Substance Use Type: Marijuana Trauma History: none voiced Special beatriz needs: No Agree to transfusion: Yes service: No Current occupational status: employed Cognitive needs: No Hearing needs: No Vision needs: Yes Female Reproductive History Menstrual Age of Menarche: 10 Questionnaire Thrive Questionnaire Date Thrive assessed: 11/29/22 AUDIT C Alcohol Use Questionnaire (AUDIT-C) 1. How often do you have a drink containing alcohol?: Never 3. How often do you have six or more drinks on one occasion?: Never Total Score: 0 Score Reviewed/Action Taken: Yes ALEXANDRE-7 AMB Questionnaire ALEXANDRE-7 Date ALEXANDRE - 7 assessed: 11/29/22 Source: Developed by Drs. Kodi Ferreira, Sumaya Mckoy, Inocente Melara and colleagues, with an educational hayden from [employer]. Review of Systems Const Denies chills, Denies fever(s) and Denies headache(s) Eyes Denies change in vision ENT Denies headache(s), Denies nasal discharge, Denies nasal obstruction and Denies sinus pain Card Denies chest pain, Denies rapid heart rate, Denies irregular heart rhythm and Denies dyspnea Resp Denies cough and Denies dyspnea GI Denies abdominal pain, Denies bloating, Denies change in bowel habits, Denies dyspepsia and Denies heartburn Musc Denies myalgias and Denies arthralgias Neuro Denies Neuro-related abnormal movements, Denies Abnormal speech present, Denies headache(s), Denies seizure-like activity and Denies Sensory deficit (Neuro) Psych Denies mood swings Physical exam (Primary Care) Tobacco/Smoking Status: Tobacco use Status Tobacco use date assessed 07/16/23 07/16/23 14:09 Patient Tobacco Use Status Never used Tobacco 07/16/23 14:09 e-Cigarette/Vaping Use Never Used 07/16/23 14:09 Thrive Assessment: Date of Thrive Assessment Date Thrive assessed 11/29/22 07/16/23 14:09 Neuro Speech: No Abnormal speech present Sensory Exam: No Sensory deficit (Neuro) Telehealth Telehealth Location of provider rendering services: practice address Location of patient: address on file Patient Identification confirmed using: Name, : Yes Telehealth method: video Patient verbally consented to treatment: Yes Patient verbally consented to billing insurance company: Yes Patient informed of any privacy concerns related to visit: Yes Minutes spent on Phone/Video with Pt.: 15 Results Reviewed Results Reviewed: Name: Samm Wu Age/Sex: 23/F : 2000 Unit#: [id number] Attend Dr: Carlos Tamayo MD Re06/13/23 Status: DEP REF Location: [facility] Disch: SPEC : [id number] DENNISE: 06/13/23 STATUS: COMP REQ : [id number] RECD: 06/13/[address]: Carlos Tamayo MD COMP: 06/13/23 ENTERED: 06/13/[address]: Bindu Ron MD ORDERED: CBC No Diff Test Result Flag Reference WBC 8.3 4.8-10.8 X10*3/uL RBC 3.90 L 4.20-5.50 X10*6/uL HGB 12.4 12.0-16.0 g/dl HCT 35.8 L 37.0-47.0 % MCV 91.8 80.0-98.0 fL MCH 31.8 27.0-33.0 pg MCHC 34.6 31.0-35.0 g/dl RDW 12.4 11.0-16.0 % PLT 259 160-400 X10*3/uL MPV 10.9 9.4-12.3 fL NRBC Pct Auto 0.0 0.0-0.2 /100WBC NRBC Abs Auto 0.000 0.0-0.012 X10*3/uL SPEC : [id number] DENNISE: 06/13/23 STATUS: COMP REQ : [id number] RECD: 06/13/[address]: Carlos Tamayo MD COMP: 06/13/23 ENTERED: 06/13/[address]: Bindu Ron MD ORDERED: Liver Panel, BMP Test Result Flag Reference Sodium 141 135-145 mmol/L Potassium 3.9 3.3-5.1 mmol/L CL 105 96-108 mmol/L CO2 28 22-29 mmol/L Gap 12 12-20 BUN 9 9-16 mg/dL Creat 0.71 0.5-1.4 mg/dL EGFR > 60 NOTE: For -Citizen Of [place] individuals, multiply the result by 1.210. Chronic Kidney Disease: Estimated GFR < 60 mL/min/1.73m2 Severe Kidney Disease: Estimated GFR < 15 mL/min/1.73m2 Glucose, Random 86 60-115 mg/dL CA 10.1 # 8.4-10.2 mg/dL Total Bili 2.1 H 0.0-1.0 mg/dL Direct Bili 0.6 H 0.0-0.5 mg/dL AST (GOT) 19 5-31 U/L ALT (GPT) 13 0-31 U/L Protein, Total 7.4 6.5-8.0 g/dL Alb 4.5 3.5-5.0 g/dL Alk Phos 34 L 39-117 U/L Assessment and Plan Assessment & Plan (1) Serum total bilirubin elevated: Code(s): R17 - Unspecified jaundice (2) Positive hepatitis C antibody test: Comment: Negative viral load Code(s): R76.8 - Other specified abnormal immunological findings in serum Plan GI consult obtained for further evaluation and management Orders: Referrals Gastroenterology Referral R17 - Unspecified jaundice, R76.8 - Other specified abnormal immunological findings in serum, Z87.898 - Personal history of other specified conditions Coding Level of Care Code Tele Est Pt Level 3 (09141) Diagnoses Serum total bilirubin elevated R17 Positive hepatitis C antibody test R76.8
== END 2023-07-16 15:42 | disposition home or self-care (01) ==
LOC: HO.HMGC 14:05
PROVIDERS: PCP Internal Medicine; Visit Provider Internal Medicine
DX: R17 Unspecified jaundice (principal); R76.8 Other specified abnormal immunological findings in serum
CPT/HCPCS: 99213

== ENCOUNTER 2023-08-05 13:24 | Outpatient (AMB) | payer OTHER, SELFPAY ==
--- NOTE | 2023-08-05 13:30 | MHC.PC.OV ---
Vital Signs 08/05/23 13:59 Height 4 ft 11 in Weight 120 lb BMI 24.2 BP 98/58 L Blood Pressure Location Lt brachial Position Sitting Pulse 104 H Pulse Source Pulse Oximeter Pulse Oximetry (%) 100 Oxygen Delivery Method Room Air Intake Visit Reasons: migraine,head pressure Intake Note: Pt is here today c/o migraines and head pressure Allergies amoxicillin [AMOXICILLIN] Allergy (Severe, Verified 08/05/23 14:20) Hives cefadroxil [Cefadroxil] Allergy (Severe, Verified 08/05/23 14:20) anaphylaxis peanut [PEANUT] Allergy (Severe, Verified 08/05/23 14:20) LIP, TONGUE SWELLING. Medication List - Last Reconciled 08/05/23 by Bindu Ron MD aripiprazole 5 mg PO DAILY dextroamphetamine-amphetamine 5 mg ER 1 cap PO QAM ibuprofen 600 mg PO Q6H PRN propranolol 10 mg PO BID trazodone 100 mg PO BEDTIME PRN Tobacco use date assessed: 08/05/23 Dental Screening Dental Screen Date: 08/05/23 Did you have a dental visit in the last 12 months?: Yes Did you have a dental problem in the last 6 months where you did not have access to dental care?: No Was dental information given to patient?: Patient has dentist HPI migraine,head pressure HPI Details 23-year-old lady here today complaining of intermittent episodes of diffuse headache, described as a diffuse pressure in her head. Which has been present now for the last several days this was not accompanied by any blurred vision, no nausea, no vomiting, no chest pain or shortness of breath, no weakness, numbness or tingling in extremities reported. She also still complains of intermittent episode of right upper to mid abdominal pain, comes and goes. She has positive hepatitis C antibody in the past with negative viral load, negative hepatitis-B infection. She has elevated total bilirubin and liver enzyme , with abdomen US showing mildly increased hepatic parenchymal heterogeneity and echogenicity , could be associated with hepatocellular disease/hepatic steatosis. [facility] Medical History (Updated 08/06/23 @ 00:54 by Bindu Ron MD) Right upper quadrant abdominal pain History of jaundice Serum total bilirubin elevated Pilonidal abscess Positive hepatitis C antibody test Food allergy, peanut Lumbago with sciatica, right side Anxiety and depression Bipolar 1 disorder Insomnia Sprain, low back Seizures Surgical History History of excision of pilonidal cyst (07/03/22) History of wisdom tooth extraction H/O removal of cyst Family History Father PTSD (post-traumatic stress disorder) High cholesterol Mental health disorder Mother Loss of hearing Social History Household Members: Family Both parents involved: Yes Housing: House Are you a primary intensive care anaesthetist to a significant other at home: No Do you presently have visiting nurse or other home services: No Alcohol intake: never Patient Tobacco Use Status: Never used Tobacco e-Cigarette/Vaping Use: Never Used Substance Use Type: Marijuana Trauma History: none voiced Special beatriz needs: No Agree to transfusion: Yes service: No Current occupational status: employed Cognitive needs: No Hearing needs: No Vision needs: Yes Female Reproductive History Menstrual Age of Menarche: 10 Questionnaire Thrive Questionnaire Date Thrive assessed: 11/29/22 ALEXANDRE-7 AMB Questionnaire ALEXANDRE-7 Date ALEXANDRE - 7 assessed: 11/29/22 Source: Developed by Drs. Kodi Ferreira, Sumaya Mckoy, Inocente Melara and colleagues, with an educational hayden from for; [employer] [employer]. Review of Systems Const Reports as per HPI, Denies chills, Denies fever(s), Denies poor appetite and Denies weakness Eyes Denies change in vision ENT Denies nasal discharge, Denies nasal obstruction and Denies sinus pain Card Denies chest pain, Reports rapid heart rate (occasional), Denies irregular heart rhythm and Denies dyspnea Resp Denies cough and Denies dyspnea GI Denies abdominal pain, Denies bloating, Denies change in bowel habits, Denies dyspepsia and Denies heartburn Reports no additional complaints Musc Denies myalgias and Denies arthralgias Neuro Denies Neuro-related abnormal movements, Denies Abnormal speech present, Denies seizure-like activity, Denies Sensory deficit (Neuro) and Denies weakness Psych Denies mood swings Delgado/Lymph Reports no additional complaints Physical exam (Primary Care) Vital Signs: Last Vital Signs Pulse 104 H 08/05/23 13:59 BP 98/58 L 08/05/23 13:59 Pulse Ox 100 08/05/23 13:59 Oxygen Delivery Method Room Air 08/05/23 13:59 BMI result Body Mass Index 24.2 Tobacco/Smoking Status: Tobacco use Status Tobacco use date assessed 08/05/23 08/05/23 14:03 Patient Tobacco Use Status Never used Tobacco 08/05/23 13:31 e-Cigarette/Vaping Use Never Used 08/05/23 13:31 Thrive Assessment: Date of Thrive Assessment Date Thrive assessed 11/29/22 08/05/23 13:31 Const General: comfortable, no acute distress and alert Nutritional Appearance: average body habitus Orientation/consciousness: patient oriented x3 HENMT Head: Yes normocephalic and Yes atraumatic Ears: external ears normal General nose exam: Normal external nose present Face and sinus: Yes face symmetric Mouth: Normal oral and palatal mucosa present, oropharynx normal and moist mucous membranes Eyes General: appearance normal, both eyes and all related structures Neck Neck: Yes full ROM, Yes no lymphadenopathy and Yes supple Resp Auscultation: clear to auscultation bilaterally Cardio Rate: tachycardic Rhythm: regular rhythm Heart sounds: S1 normal heart sound present and S2 normal heart sound present GI Palpation (GI): Soft to palpation, Tenderness to palpation present (GI) in the RUQ; Gardner's sign negative, no guarding and no hepatosplenomegaly Skin General skin exam: no rashes or lesions noted Neuro General: patient oriented x3 Speech: No Abnormal speech present Sensory Exam: No Sensory deficit (Neuro) Results Reviewed Results Reviewed: lili: Samm Wu Age/Sex: 23/F : 2000 Unit#: [id number] Attend Dr: Carlos Tamayo MD Re06/13/23 Status: DEP REF Location: [facility] Disch: SPEC : [id number] DENNISE: 06/13/23 STATUS: COMP REQ : [id number] RECD: 06/13/[address]: Carlos Tamayo MD COMP: 06/13/23 ENTERED: 06/13/[address]: Bindu Ron MD ORDERED: CBC No Diff Test Result Flag Reference WBC 8.3 4.8-10.8 X10*3/uL RBC 3.90 L 4.20-5.50 X10*6/uL HGB 12.4 12.0-16.0 g/dl HCT 35.8 L 37.0-47.0 % MCV 91.8 80.0-98.0 fL MCH 31.8 27.0-33.0 pg MCHC 34.6 31.0-35.0 g/dl RDW 12.4 11.0-16.0 % PLT 259 160-400 X10*3/uL MPV 10.9 9.4-12.3 fL NRBC Pct Auto 0.0 0.0-0.2 /100WBC NRBC Abs Auto 0.000 0.0-0.012 X10*3/uL Laboratory Tests 02/16/21 02/16/21 04/06/21 11:35 11:35 11:48 Hep Bs Antigen Negative Hepatitis C Ab (EIA) Reactive H Hep C Viral Load <15 NOT DETECTED Hep C Viral Load Log <1.18 NOT DETECTED HIV 1&2 Ab/P24 Ag 4thGn Nonreactive Rubella IgG Antibody 3.20 Name: Mateus Samm Fortune Age/Sex: 23/F : 2000 Unit#: [id number] Attend Dr: Carlos Tamayo MD Re06/13/23 Status: DEP REF Location: [facility] Disch: SPEC : [id number] DENNISE: 06/13/23 STATUS: COMP REQ : [id number] RECD: 06/13/23134 [facility] DR: Carlos Tamayo MD COMP: 06/13/23 ENTERED: 06/13/23-[address]: Bindu Ron MD ORDERED: Liver Panel, BMP Test Result Flag Reference Sodium 141 135-145 mmol/L Potassium 3.9 3.3-5.1 mmol/L CL 105 96-108 mmol/L CO2 28 22-29 mmol/L Gap 12 12-20 BUN 9 9-16 mg/dL Creat 0.71 0.5-1.4 mg/dL EGFR > 60 NOTE: For -[place] individuals, multiply the result by 1.210. Chronic Kidney Disease: Estimated GFR < 60 mL/min/1.73m2 Severe Kidney Disease: Estimated GFR < 15 mL/min/1.73m2 Glucose, Random 86 60-115 mg/dL CA 10.1 # 8.4-10.2 mg/dL Total Bili 2.1 H 0.0-1.0 mg/dL Direct Bili 0.6 H 0.0-0.5 mg/dL AST (GOT) 19 5-31 U/L ALT (GPT) 13 0-31 U/L Protein, Total 7.4 6.5-8.0 g/dL Alb 4.5 3.5-5.0 g/dL Alk Phos 34 L 39-117 U/L Assessment and Plan Assessment & Plan (1) Positive hepatitis C antibody test: Comment: Negative viral load Code(s): R76.8 - Other specified abnormal immunological findings in serum Plan: Negative viral load, negative hepatitis-B surface antibody and liver enzymes are within normal limits.. Referred already to [facility] clinic for further evaluation management (2) Serum total bilirubin elevated: Code(s): R17 - Unspecified jaundice Plan: Has appointment already scheduled for 08/21/2023 to [facility] clinic (3) Right upper quadrant abdominal pain: Code(s): R10.11 - Right upper quadrant pain Plan: Ultrasound of abdomen did not show any evidence of gallstones in 2019, it did show presence of findings consistent with hepatocellular disease. GI consult requested, patient has an appointment already scheduled for (4) Palpitation: Code(s): R00.2 - Palpitations Plan: EKG done today showed normal sinus rhythm with sinus arrhythmia, normal rate (5) Headache: Code(s): R51.9 - Headache, unspecified Qualifiers: Headache type: unspecified Headache chronicity pattern: acute headache Intractability: not intractable Qualified Code(s): R51.9 - Headache, unspecified Plan: Patient complaining of her diffuse headache, advised patient to avoid smoking marijuana as excessive use can lead to head. May take an occasional ibuprofen, 1 every 12 hours as needed for headache. Advised to get rest, stay well-hydrated. Return to clinic if no improvement of symptoms and advised to go to the ER if headache is severe and accompanied by any weakness, alteration in mentation, lightheadedness, nausea vomiting. Coding Level of Care Code Est Pt Level 4 (71641) Diagnoses Positive hepatitis C antibody test R76.8 Serum total bilirubin elevated R17 Right upper quadrant abdominal pain R10.11 Palpitation R00.2 Acute nonintractable headache, unspecified headache type R51.9 Headache type: unspecified Headache chronicity pattern: acute headache Intractability: not intractable
[2023-08-05 13:59] VITALS: BP 98/58; PULSE 104; O2SAT 100; BMI 24.2
== END 2023-08-05 15:51 | disposition home or self-care (01) ==
PROVIDERS: PCP Internal Medicine; Visit Provider Internal Medicine
DX: R76.8 Other specified abnormal immunological findings in serum (principal); R17 Unspecified jaundice; R10.11 Right upper quadrant pain; R00.2 Palpitations; R51.9 Headache, unspecified
CPT/HCPCS: 99214

== ENCOUNTER 2023-09-25 11:21 | Outpatient (AMB) | payer OTHER, SELFPAY ==
[2023-09-25 11:25] VITALS: BP 118/56; PULSE 69; BMI 25.6
--- NOTE | 2023-09-25 11:25 | A.OFFVIS_ITS ---
Intake Vital Signs 09/25/23 11:25 Height 4 ft 11 in Weight 126 lb 15.78 oz BMI 25.6 BP 118/56 L Blood Pressure Location Lt brachial Position Sitting Pulse 69 Intake Visit Reasons: unspecified jaundice Intake Note: Patient referred by Dr. Ron for RUQ pain X6m. Eyes turn yellow at times. Was told bilirubin was high. ABD US in June. Graduation Coach Required: No Accompanied by: Darling, grandmother Allergies amoxicillin [AMOXICILLIN] Allergy (Severe, Verified 09/25/23 11:30) Hives cefadroxil [Cefadroxil] Allergy (Severe, Verified 09/25/23 11:30) anaphylaxis peanut [PEANUT] Allergy (Severe, Verified 09/25/23 11:30) LIP, TONGUE SWELLING. HPI unspecified jaundice HPI Details 23-year-old female with past medical his tory of anxiety, depression, bipolar disorder, history of positive hep C antibody test is here today for initial consultation. Patient was sent to us by her PCP. Patient reports for the last 6 months having right upper quadrant pain and discomfort. Patient also reports occasional jaundice, reports that her eyes turning yellow. Patient reports that the pain is there sometimes after eating and occasionally the pain just comes on randomly. Patient denies any nausea or vomiting. Denies any dyspepsia, dysphagia or odynophagia. Patient is not on any particular diet. Denies any family history of liver disease. In 2020 patient had positive hep C antibody test and viral load was not detected. Patient is not aware of why. Patient does not do any drugs and is not drinking any alcohol. Ultrasound of abdomen shows hepatic steatosis. Patient has normal transaminase. Mildly elevated direct and total bilirubin. Patient denies any melena, hematochezia, unintentional weight loss or ribbon like stools. [facility] Medical History (Updated 08/06/23 @ 00:54 by Bindu Ron MD) Right upper quadrant abdominal pain History of jaundice Serum total bilirubin elevated Pilonidal abscess Positive hepatitis C antibody test Food allergy, peanut Lumbago with sciatica, right side Anxiety and depression Bipolar 1 disorder Insomnia Sprain, low back Seizures Surgical History History of excision of pilonidal cyst (07/03/22) History of wisdom tooth extraction H/O removal of cyst Family History Father PTSD (post-traumatic stress disorder) High cholesterol Mental health disorder Mother Loss of hearing Social History Household Members: Family Both parents involved: Yes Housing: House Are you a primary child care associate to a significant other at home: No Do you presently have visiting nurse or other home services: No Alcohol intake: never Patient Tobacco Use Status: Never used Tobacco e-Cigarette/Vaping Use: Never Used Substance Use Type: Marijuana Trauma History: none voiced Special beatriz needs: No Agree to transfusion: Yes service: No Current occupational status: employed Cognitive needs: No Hearing needs: No Vision needs: Yes Female Reproductive History Menstrual Age of Menarche: 10 Review of Systems Const Denies weight gain and Denies weight loss ENT Reports no additional complaints, Denies dysphagia and Denies odynophagia Card Reports no additional complaints Resp Reports no additional complaints GI Reports abdominal pain (RUQ), Denies belching, Denies melena, Reports bloating, Denies change in bowel habits, Denies dysphagia, Denies excessive flatus, Denies dyspepsia, Denies heartburn, Denies diarrhea, Denies loose stools, Denies nausea, Denies odynophagia and Denies vomiting Reports no additional complaints Musc Reports no additional complaints Neuro Reports no additional complaints Psych Reports no additional complaints Endo Reports no additional complaints Physical Exam Vital Signs: Last Vital Signs Pulse 69 09/25/23 11:25 BP 118/56 L 09/25/23 11:25 BMI result Body Mass Index 25.6 Const General: healthy appearing, no acute distress and well developed Nutritional Appearance: well nourished Orientation/consciousness: patient oriented x3 Resp Effort & Inspection: normal respiratory effort, able to speak in complete sentences, no tracheal deviation and symmetric chest movement Auscultation: clear to auscultation bilaterally Cardio Rate: regular rate GI Inspection: Yes normal to inspection and No distended Palpation (GI): Soft to palpation, not firm, nontender and No hepatosplenomegaly present Auscultation: normal bowel sounds General: Yes no CVA tenderness Back/Spine/Pelvis Back: no CVA tenderness Skin General skin exam: elasticity normal, turgor normal and dry skin Neuro General: patient oriented x3 Psych Appearance: grossly normal Mental Status: mental status grossly normal Results Reviewed Results Reviewed: ABDOMINAL ULTRASOUND FINDINGS: PANCREAS: Limited visualization of pancreatic tail and head. Imaged portion of pancreatic body is unremarkable. ABDOMINAL AORTA: Nonaneurysmal. INFERIOR VENA CAVA: Visualized portions are normal. LIVER: Mildly increased hepatic parenchymal heterogeneity and echogenicity could be associated with hepatocellular disease/hepatic steatosis and substantially limits visualization. Correlation with liver function tests and clinical exam recommended to determine further management. GALLBLADDER: No gallstones. No gallbladder wall thickening. COMMON BILE DUCT: Normal in caliber measuring 0.3 cm in diameter. RIGHT KIDNEY: No hydronephrosis. No renal calculi. Limited visualization. The kidney measures 10.5 cm in maximum dimension. LEFT KIDNEY: Stq-bx-xtytl pole 0.2 cm calculus. No hydronephrosis. Limited visualization. The kidney measures 10.0 cm in maximum dimension. SPLEEN: Normal. The spleen measures 10.9 cm in maximum dimension. FREE FLUID: None. US/US abdomen complete IMPRESSION: 1. Mildly increased hepatic parenchymal heterogeneity and echogenicity could be associated with hepatocellular disease/hepatic steatosis and substantially limits visualization. Correlation with liver function tests and clinical exam recommended to determine further management. 2. Left renal 0.2 cm nonobstructive calculus. No hydronephrosis. Laboratory Tests 06/13/23 11:54 Total Bilirubin 2.1 H Direct Bilirubin 0.6 H AST 19 ALT 13 Assessment & Plan Assessment & Plan (1) Right upper quadrant abdominal pain: Code(s): R10.11 - Right upper quadrant pain (2) History of jaundice: Code(s): Z87.898 - Personal history of other specified conditions (3) Serum total bilirubin elevated: Code(s): R17 - Unspecified jaundice (4) Gilbert's disease: Code(s): E80.4 - Gilbert syndrome Plan Mildly elevated bilirubin with normal transaminase most likely related to Gilbert syndrome. Occasional abdominal pain in the right upper quadrant could be related that to biliary dyskinesia. We will send patient for HIDA scan. Ultrasound shows hepatic steatosis will rule out the cause. History of positive hep C antibody and negative viral load in 2020. Will repeat the viral load today. Patient will return in 2 months, sooner on as needed basis. She is agreeable to this plan and verbalizes understanding of instructions. He was given the opportunity to ask questions and all questions answered. Thank you for allowing me to participate in her care Orders: Orders Alpha Fetoprotein Today R79.89 - Other specified abnormal findings of blood chemistry Prothrombin Time INR Today R74.8 - Abnormal levels of other serum enzymes Smooth Muscle Antibody Today R79.89 - Other specified abnormal findings of blood chemistry C Reactive Protein Today K58.9 - Irritable bowel syndrome without diarrhea HIV Ab/Ag Today R79.89 - Other specified abnormal findings of blood chemistry Complete Blood Count no Diff Today K21.9 - Gastro-esophageal reflux disease without esophagitis Liver Fibrosis Pnl Today R74.8 - Abnormal levels of other serum enzymes Hepatitis A,B,C Profile Today R79.89 - Other specified abnormal findings of blood chemistry Ceruloplasmin Today R79.89 - Other specified abnormal findings of blood chemistry TSH reflex Free T4 Today K59.00 - Constipation, unspecified Liver Panel Today R74.01 - Elevation of levels of liver transaminase levels Ferritin Today R74.8 - Abnormal levels of other serum enzymes Gamma Glutamyl Transpeptidase Today R74.8 - Abnormal levels of other serum enzymes NM hepatobiliary w pharm Today R10.11 - Right upper quadrant pain Hepatitis C Viral Load Today Z86.19 - Personal history of other infectious and parasitic diseases Coding Level of Care Code New Pt Level 4 (61125) Diagnoses Right upper quadrant abdominal pain R10.11 History of jaundice Z87.898 Serum total bilirubin elevated R17 Gilbert's disease E80.4 Time Spent (min) 45 Comment 30 minutes spent with patient and additional 15 minutes spent reviewing her records
== END 2023-09-25 11:53 | disposition home or self-care (01) ==
PROVIDERS: PCP Internal Medicine; Visit Provider Nurse Practitioner Family
DX: R10.11 Right upper quadrant pain (principal); Z87.898 Personal history of other specified conditions; R17 Unspecified jaundice; E80.4 Gilbert syndrome
CPT/HCPCS: 99204

== ENCOUNTER → 2023-09-25 11:21 | Outpatient (BNVA) | payer SELFPAY | PROVIDERS: PCP Internal Medicine; Visit Provider Nurse Practitioner Family | DX: R10.11 Right upper quadrant pain (principal); E80.7 Disorder of bilirubin metabolism, unspecified; E80.4 Gilbert syndrome; Z87.898 Personal history of other specified conditions | CPT/HCPCS: 99202 ==

== ENCOUNTER 2023-09-27 07:50 | Outpatient (REF) | payer OTHER, SELFPAY ==
[2023-09-27 10:48] LABS: INTERNATIONAL NORM RATIO 0.9 (0.9-1.1); Prothrombin Time 11.1 SEC (11.1-13.3)
[2023-09-27 10:50] LABS: Hematocrit 38.9 % (37.0-47.0); Mean Corpuscular HGB Conc 33.4 g/dl (31.0-35.0); Mean Corpuscular Hemoglobin 31.7 pg (27.0-33.0); Mean Corpuscular Volume 94.9 fL (80.0-98.0); Platelet Count 229 X10*3/uL (160-400); Red Cell Distribution Width 12.4 % (11.0-16.0); White Blood Count 6.5 X10*3/uL (4.8-10.8)
[2023-09-27 11:19] LABS: HBS Num1 176.42 mIU/mL (0-7.99); HBc Num1 0.09 S/CO (0.00-0.79); HBsAGNum1 0.31 S/CO (0.00-0.99); HIV AB/AG Nonreactive (Nonreactive); HIV Num 1 0.05 S/CO (0.00-0.99); Hepatitis A Antibody IgM 0.14 Index (0-0.79); Hepatitis B Core Antibody Nonreactive (Nonreactive); Hepatitis B Surface Antigen Negative (Negative); ~HepC Num1 0.76 S/CO (0.00-0.79); ~Hepatitis A Antibody IgM Nonreactive (Nonreactive); ~Hepatitis B Surface Antibody REACTIVE (Nonreactive); ~Hepatitis C Antibody Nonreactive (Nonreactive)
[2023-09-27 12:01] LABS: Ferritin 60 ng/mL (10-122); TSH reflex Free T4 0.77 uIU/mL (0.32-4.0)
[2023-09-27 12:05] LABS: C Reactive Protein < 0.04 mg/dL (< or = 0.50)
[2023-09-27 12:06] LABS: Alanine Aminotransferase 20 U/L (0-31); Albumin Level 4.6 g/dL (3.5-5.0); Alkaline Phosphatase 36 U/L (39-117); Aspartate Amino Transferase 23 U/L (5-31); Bilirubin Direct 0.5 mg/dL (0.0-0.5); Bilirubin Total 1.7 mg/dL (0.0-1.0); Total Protein 7.7 g/dL (6.5-8.0)
[2023-09-27 23:31] LABS: Gamma Glutamyl Transpeptidase 19 U/L (7-33)
[2023-09-30 09:03] LABS: Ceruloplasmin 22 mg/dL (18-53)
[2023-09-30 13:02] LABS: Alpha Fetoprotein 0.8 ng/mL
[2023-09-30 14:03] LABS: HCV Log PCR <1.18 NOT DETECTED Log IU/mL (NOT DETECTED); HepC Viral Load <15 NOT DETECTED IU/mL (NOT DETECTED)
[2023-10-02 14:28] LABS: Smooth Muscle Antibody <20 U (<20)
[2023-10-05 18:43] LABS: FIB-ALT 18 U/L (6-29); FIB-Alpha-2-Macroglobulin 174 mg/dL (106-279); FIB-Apolipoprotein A1 208 mg/dL (101-198); FIB-GGT 15 U/L (3-40); FIB-Haptoglobin 84 mg/dL (43-212); FIB-Total Bilirubin 1.4 mg/dL (0.2-1.2); Liver Fibrosis Score 0.07; Liver Fibrosis Stage F0; Nec Inflam Act Grade A0; Nec Inflam Act Score 0.05
== END 2023-09-27 07:51 | disposition home or self-care (01) ==
LOC: HO.HMGCLDS 07:50
PROVIDERS: PCP Internal Medicine; Visit Provider Nurse Practitioner Family
DX: Z11.4 Encounter for screening for human immunodeficiency virus [HIV] (principal); R79.89 Other specified abnormal findings of blood chemistry; R74.8 Abnormal levels of other serum enzymes; K21.9 Gastro-esophageal reflux disease without esophagitis; K58.9 Irritable bowel syndrome, unspecified; K59.00 Constipation, unspecified; R74.01 Elevation of levels of liver transaminase levels; Z86.19 Personal history of other infectious and parasitic diseases
CPT/HCPCS: 36415; 80076; 81596; 82105; 82390; 82728; 82977; 84443; 85027; 85610; 86015; 86140; 86704; 86706; 86709; 86803; 87340; 87389; 87522

== ENCOUNTER → 2023-10-07 10:51 | Outpatient (REF) | payer OTHER, SELFPAY ==
--- NOTE | ~2023-10-07 | NM_ITS ---
EXAMINATION: BILIARY TRACT IMAGING STUDY WITH CCK CLINICAL INFORMATION: Right upper quadrant pain.. COMPARISON: No previous biliary scan is available for comparison. Abdominal ultrasound dated 07/08/[address] scan of the abdomen and pelvis dated 11/08/2020 are available for comparison.. TECHNIQUE: Serial gamma scintillation camera images were obtained over the abdomen for a total observation period of 95 minutes following the intravenous administration of 5.0 mCi Tc-99m Mebrofenin. FINDINGS: There is good concentration of activity in the liver by 5 minutes post injection. Biliary activity is visualized by 15 minutes. The gallbladder is well visualized by 25 minutes. Small bowel is well visualized by 75 minutes. At 65 minutes post radiopharmaceutical injection, a 30-minute infusion of 1.2 micrograms Sincalide was then begun and an additional 30 minutes of images were obtained. There is good emptying of the gallbladder. By the end of the study there is good clearance of activity from the liver and visualization of diffuse small bowel activity. The calculated gallbladder ejection fraction is 98% (normal gallbladder ejection fraction is greater than 35%). NM/NM hepatobiliary w pharm IMPRESSION: Visualization of the gallbladder is evidence of a patent cystic duct and strong evidence against the diagnosis of acute cholecystitis. The common bile duct is patent. Gallbladder emptying and ejection fraction are normal. Liver function appears normal.
== END ==
LOC: HO.NUCMED 10:51
PROVIDERS: PCP Internal Medicine; Visit Provider Nurse Practitioner Family
DX: R10.11 Right upper quadrant pain (principal)
CPT/HCPCS: 78227; A9537; J2805

== ENCOUNTER 2023-10-11 13:42 | Outpatient (AMB) | payer OTHER, SELFPAY ==
[2023-10-11 13:44] VITALS: BP 130/70; PULSE 100; TEMP 36.2; O2SAT 100; BMI 25.2
--- NOTE | 2023-10-11 13:48 | A.OFFPC_ITS ---
"Vital Signs 10/11/23 13:44 Height 4 ft 11 in Weight 125 lb BMI 25.2 BP 130/70 Blood Pressure Location Lt brachial Position Sitting Pulse 100 Pulse Source Pulse Oximeter Temp 97.1 F Pulse Oximetry (%) 100 Intake Visit Reasons: cough/chest pain Intake Note: pt is here today for cough and chest pain started 1 weeks ago Allergies amoxicillin [AMOXICILLIN] Allergy (Severe, Verified 10/11/23 14:19) Hives cefadroxil [Cefadroxil] Allergy (Severe, Verified 10/11/23 14:19) anaphylaxis peanut [PEANUT] Allergy (Severe, Verified 10/11/23 14:19) LIP, TONGUE SWELLING. Medication List - Last Reconciled 10/11/23 by Bindu Ron MD aripiprazole 5 mg PO DAILY dextroamphetamine-amphetamine 5 mg ER 1 cap PO QAM doxycycline hyclate 100 mg PO BID ibuprofen 600 mg PO Q6H PRN propranolol 10 mg PO BID trazodone 100 mg PO BEDTIME PRN Tobacco use date assessed: 10/11/23 Dental Screening Dental Screen Date: 10/11/23 Did you have a dental visit in the last 12 months?: Yes Did you have a dental problem in the last 6 months where you did not have access to dental care?: No Was dental information given to patient?: Patient has dentist HPI cough/chest pain HPI Details 23-year-old lady here today complaining of pain over left cheek, accompanied by nasal congestion, postnasal drainage and an occasional productive cough present now for the last week. Not any better with taking ztns-wce-cdsmmze cough medications. Denies any accompanying fever or shortness of breath, no wheeze. 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 She has been diagnosed to have bipolar disorder and ADHD, currently being followed by Dr. Gao at [facility] and followed by therapist, Merlyn Thomas. Currently on aripiprazole and dextroamphetamine 5 mg ER 1 daily as well as propranolol 10 mg twice a day and trazodone 100 mg at bedtime as needed for difficulty sleeping. [facility] Medical History ADHD Serum total bilirubin elevated Pilonidal abscess Positive hepatitis C antibody test Food allergy, peanut Lumbago with sciatica, right side Anxiety and depression Bipolar 1 disorder Insomnia Seizures Surgical History History of excision of pilonidal cyst (07/03/22) History of wisdom tooth extraction H/O removal of cyst Family History Father PTSD (post-traumatic stress disorder) High cholesterol Mental health disorder Mother Loss of hearing Social History Household Members: Family Housing: House Are you a primary neurocritical care physician to a significant other at home: No Do you presently have visiting nurse or other home services: No Alcohol intake: never Patient Tobacco Use Status: Never used Tobacco e-Cigarette/Vaping Use: Never Used Substance Use Type: Marijuana Trauma History: none voiced Special beatriz needs: No Agree to transfusion: Yes service: No Current occupational status: employed Cognitive needs: No Hearing needs: No Vision needs: Yes Female Reproductive History Menstrual Age of Menarche: 10 Questionnaire PHQ-9 Over the last 2 weeks, how often have you been bothered by any of the following problems? 1. Little interest or pleasure in doing things: not at all 2. Feeling down, depressed, or hopeless: not at all 3. Trouble falling or staying asleep, or sleeping too much: not at all 4. Feeling tired or having little energy: not at all 5. Poor appetite or overeating: not at all 6. Feeling bad about yourself - or that you are a failure or have let yourself or your family down: not at all 7. Trouble concentrating on things, such as reading the newspaper or watching television: not at all 8. Moving or speaking so slowly that other people could have noticed. Or the opposite - being so fidgety or restless that you have been moving around a lot more than usual: not at all 9. Thoughts that you would be better off or of hurting yourself in some way: not at all Total score: 0 Depression Screening Interpretation: Negative Depression Screening Done: Yes 17215 - PHQ-9 Billing: Yes Source: Developed by Drs. Kodi Ferreira, Sumaya Mckoy, Inocente Melara and colleagues, with an educational hayden from [employer]where. Thrive Questionnaire Date Thrive assessed: 10/11/23 I am a: Patient What is your living situation today?: I have a steady place to live Within the past 12 months, did the food you bought not last and you didn't have the money to get more?: Never true Within the past 12 months, did you worry whether your food would run out before you got money to buy more?: Never true Do you have trouble paying for medicines?: No Do you have trouble getting transportation to medical appointments?: No Do you have trouble paying your heating and electricity bill?: No Do you have trouble taking care of your child, family member or friend?: No Do you have trouble with day-to-day activities such as bathing, preparing meals, shopping, managing finances, etc.?: No Are you currently unemployed and looking for a job?: No Are you interested in more education?: No THRIVE Score: 0 ALEXANDRE-7 AMB Questionnaire ALEXANDRE-7 Date ALEXANDRE - 7 assessed: 10/11/23 Feeling nervous, anxious, or on edge: 0 = Not at all Not being able to stop or control worryin = Not at all Worrying too much about different things: 0 = Not at all Trouble relaxin = Not at all Being so restless that it is hard to sit still: 0 = Not at all Becoming easily annoyed or irritable: 0 = Not at all Feeling afraid as if something awful might happen: 0 = Not at all Total ALEXANDRE-7 score (0-4 normal; 5-9 mild; 10-14 moderate; 15-21 severe): 0 Source: Developed by Drs. Kodi Ferreira, Sumaya Mckoy, Inocente Melara and colleagues, with an educational hayden from [employer]. ALEXANDRE-7 Assessment Billing ALEXANDRE-7 Assessment Tool: ALEXANDRE-7 Assessment 95169 Review of Systems Const Reports as per HPI Eyes Denies change in vision ENT Reports as per HPI Card Reports no additional complaints Resp Reports as per HPI GI Reports no additional complaints Reports no additional complaints Musc Reports no additional complaints Neuro Reports no additional complaints, Denies Abnormal speech present and Denies Sensory deficit (Neuro) Psych Details: Followed by Dr. Gao at [facility] , and sees therapist regularly Reports as per HPI Endo Reports no additional complaints Delgado/Lymph Reports no additional complaints Physical exam (Primary Care) Vital Signs: Last Vital Signs Temp 97.1 F 10/11/23 13:44 Pulse 100 10/11/23 13:44 BP 130/70 10/11/23 13:44 Pulse Ox 100 10/11/23 13:44 BMI result Body Mass Index 25.2 Tobacco/Smoking Status: Tobacco use Status Tobacco use date assessed 10/11/23 10/11/23 13:50 Patient Tobacco Use Status Never used Tobacco 10/11/23 13:50 e-Cigarette/Vaping Use Never Used 10/11/23 13:50 PHQ-9: PHQ-9 Score PHQ-9: Total score 0 10/11/23 14:30 Depression Screening Interpretation: Negative Thrive Assessment: Date of Thrive Assessment Date Thrive assessed 10/11/23 10/11/23 14:30 Const General: comfortable, no acute distress and alert Nutritional Appearance: average body habitus Orientation/consciousness: patient oriented x3 HENMT Ears: external ears normal General nose exam: Normal external nose present and Abnormal mucous membranes and turbinates present erythematous Face and sinus: Yes face symmetric and Yes sinus tenderness (Left maxillary area) Mouth: Normal oral and palatal mucosa present, oropharynx normal and moist mucous membranes Eyes General: appearance normal, both eyes and all related structures Neck Neck: Yes full ROM, Yes no lymphadenopathy and Yes supple Resp Auscultation: clear to auscultation bilaterally Cardio Rate: tachycardic Rhythm: regular rhythm Heart sounds: S1 normal heart sound present and S2 normal heart sound present GI Palpation (GI): Soft to palpation and no guarding Skin General skin exam: no rashes or lesions noted Neuro General: patient oriented x3 Speech: No Abnormal speech present Sensory Exam: No Sensory deficit (Neuro) Psych Appearance: grossly normal Mental Status: mental status grossly normal Speech and movement: Normal speech and movement present Affect: normal affect Assessment and Plan Assessment & Plan (1) Acute sinusitis: Code(s): J01.90 - Acute sinusitis, unspecified Qualifiers: Sinusitis location: maxillary Recurrence: non-recurrent Qualified Code(s): J01.00 - Acute maxillary sinusitis, unspecified Plan: Prescription sent for doxycycline 100 mg per capsule to take 1 every 12 hours for 10 days return to clinic if no improvement of symptoms after 5 days of treatment (2) Immunity status testing: Code(s): Z01.84 - Encounter for antibody response examination Plan: Ordered MMR IgG antibody titer, will complete family childcare medical form once result of titers reviewed (3) ADHD: Comment: Currently followed by Dr. Gao at [facility] and sees Merlyn fajardo Code(s): F90.9 - Attention-deficit hyperactivity disorder, unspecified type Qualifiers: Attention deficit-hyperactivity disorder type: unspecified Qualified Code(s): F90.9 - Attention-deficit hyperactivity disorder, unspecified type Plan: Currently dextroamphetamine-amphetamine 5 mg ER 1 capsule daily in a.m. (4) Bipolar 1 disorder: Code(s): F31.9 - Bipolar disorder, unspecified Plan: Currently followed by Dr. Gao at [facility] and sees Merlyn coyne, currently on aripiprazole and trazodone as well as propranolol 10 mg 1 tablet b.i.d. Orders: Orders MMR IgG Measles Mumps Rubella Today Z01.84 - Encounter for antibody response examination Medications: New doxycycline hyclate 100 mg PO BID 20 caps 0RF Coding Level of Care Code Est Pt Level 4 (76545) Diagnoses Acute non-recurrent maxillary sinusitis J01.00 Sinusitis location: maxillary Recurrence: non-recurrent Immunity status testing Z01. Attention deficit hyperactivity disorder (ADHD), unspecified ADHD type F90.9 Attention deficit-hyperactivity disorder type: unspecified Bipolar 1 disorder F31.9 Additional Codes ALEXANDRE-7 Assessment Billing - ALEXANDRE-7 Assessment Tool: ALEXANDRE-7 Assessment 57731 ([id number])"
== END 2023-10-11 15:28 | disposition home or self-care (01) ==
PROVIDERS: PCP Internal Medicine; Visit Provider Internal Medicine
DX: J01.00 Acute maxillary sinusitis, unspecified (principal); Z01.84 Encounter for antibody response examination; F90.9 Attention-deficit hyperactivity disorder, unspecified type; F31.9 Bipolar disorder, unspecified
CPT/HCPCS: 99214

== ENCOUNTER 2023-10-11 14:17 | Outpatient (REF) | payer OTHER, SELFPAY ==
[2023-10-15 22:54] LABS: Rubella IgG Antibody 2.26 Index
== END 2023-10-11 14:18 | disposition home or self-care (01) ==
LOC: HO.HMGCLDS 14:17
PROVIDERS: PCP Internal Medicine; Visit Provider Internal Medicine
DX: Z01.84 Encounter for antibody response examination (principal)
CPT/HCPCS: 36415; 86735; 86762; 86765

== ENCOUNTER 2023-11-05 08:53 | Emergency (ER) | payer OTHER, SELFPAY ==
--- NOTE | ~2023-11-05 | CT_ITS ---
EXAMINATION: CT ABDOMEN AND PELVIS WITH CONTRAST CLINICAL INFORMATION: Suprapubic abdominal pain COMPARISON: Ultrasound abdomen 07/08/2023, CT abdomen pelvis 11/08/2020 TECHNIQUE: Multidetector volumetric images were obtained from the superior aspect of the liver through the pubic symphysis following administration 85 mL of Omnipaque 350 intravenous contrast. Sagittal and coronal reformatted images were obtained on the technologist's workstation. Oral contrast: No This CT examination was performed using dose optimization techniques as appropriate, variously including the following: *Automated exposure control *Adjustment of mA and/or kV according to patient size (this includes techniques or standardized protocols for targeted exams where dose is matched to indication/reason for exam; i.e. extremities or head) *Use of iterative reconstruction technique DLP: 396 mGy-cm FINDINGS: LUNG BASES: The visualized lung bases are unremarkable. LIVER, GALLBLADDER, AND BILIARY TREE: The liver is enlarged at 18.5 cm in greatest length. No focal hepatic lesion or biliary ductal dilatation is present. The gallbladder is unremarkable with no evidence of radiopaque gallstones, gallbladder wall thickening, or obvious pericholecystic inflammatory changes. PANCREAS: Unremarkable. SPLEEN: Unremarkable. ADRENAL GLANDS: Unremarkable. KIDNEYS AND URETERS: The kidneys are normal in size, shape, and attenuation. No hydronephrosis, hydroureter, or calculi seen. No perinephric stranding. BLADDER: Unremarkable. GASTROINTESTINAL TRACT: There is some mucosal thickening involving a loop of sigmoid colon just above the bladder slightly to the left of midline (3:64). The small and large bowel are otherwise unremarkable. The appendix is unremarkable. ABDOMINAL WALL: No significant hernia is appreciated. LYMPH NODES: Multiple subcentimeter short axis lymph nodes are noted in the mesentery, all under 1 cm in short axis dimension, increased in size since the prior study of 11/08/2020. No retroperitoneal lymphadenopathy seen. VASCULAR: Unremarkable. PELVIC VISCERA: The uterus and adnexa are unremarkable. Small amount of free fluid is present in the pelvis. OSSEOUS STRUCTURES: Unremarkable. CT/CT abdomen pelvis w IV con IMPRESSION: 1. There is some mucosal thickening involving a loop of sigmoid colon just above the bladder slightly to the left of midline. This may be secondary to colitis. 2. Multiple subcentimeter short axis lymph nodes are noted in the mesentery, all under 1 cm in short axis dimension, increased in size since the prior study of 11/08/2020. Fleischner guidelines were followed.
[2023-11-05 09:44] VITALS: BP 114/78; PULSE 114; RESP 18; TEMP 36.2; O2SAT 99; BMI 25.3
[2023-11-05 10:01] LABS: MANUAL DIFF FLAG NO
[2023-11-05 10:10] LABS: Basophils Percent Auto 0.5 % (0-2); Eosinophils Percent Auto 0.6 % (0-4); Hematocrit 36.8 % (37.0-47.0); Hemoglobin 12.6 g/dl (12.0-16.0); Imm Gran Abs Auto 0.02 X10*3/uL (0.00-0.03); Imm Gran Pct Auto 0.3 % (0.0-0.4); Lymphocytes Absolute Auto 1.3 X10*3/uL (1.2-4.9); Lymphocytes Percent Auto 19.3 % (20-40); Mean Corpuscular HGB Conc 34.2 g/dl (31.0-35.0); Mean Corpuscular Hemoglobin 31.4 pg (27.0-33.0); Mean Corpuscular Volume 91.8 fL (80.0-98.0); Mean Platelet Volume 9.6 fL (9.4-12.3); Monocytes Absolute Auto 0.5 X10*3/uL (0.1-1.2); Monocytes Percent Auto 8.1 % (2-11); Neutrophils Absolute Auto 4.6 x10*3/uL (2.0-8.3); Neutrophils Percent Auto 71.2 % (45-73); Platelet Count 198 X10*3/uL (160-400); Red Blood Count 4.01 X10*6/uL (4.20-5.50); Red Cell Distribution Width 12.6 % (11.0-16.0); White Blood Count 6.5 X10*3/uL (4.8-10.8)
[2023-11-05 10:21] LABS: Alanine Aminotransferase 16 U/L (0-31); Alkaline Phosphatase 39 U/L (39-117); Anion Gap 12 (12-20); Aspartate Amino Transferase 20 U/L (5-31); Bilirubin Total 0.6 mg/dL (0.0-1.0); Blood Urea Nitrogen 7 mg/dL (9-16); Calcium 9.5 mg/dL (8.4-10.2); Carbon Dioxide 25 mmol/L (22-29); Chloride 107 mmol/L (96-108); Creatinine Clr Calc Pharmacy 98.2; Estimated Glomerular Filt Rate > 60; Glucose Random 87 mg/dL (60-115); Potassium 4.2 mmol/L (3.3-5.1); Sodium 140 mmol/L (135-145); Total Protein 7.1 g/dL (6.5-8.0)
[2023-11-05 11:03] LABS: UPreg QC Valid YES; Urine Pregnancy NEGATIVE (NEGATIVE)
[2023-11-05 11:05] LABS: Appearance Urine Clear; Color Urine Yellow; Glucose Urine UA Negative (Negative); Leukocyte Esterase Urine Negative (Negative); Nitrite Urine Negative (Negative); PH 6.5 (5.0-9.0); Urine Blood Negative (Negative); Urine Ketones Negative (Negative); Urine Protein Negative (Neg-Trace)
--- NOTE | 2023-11-05 13:03 | ED.GENADULT ---
HPI - General Adult General Chief complaint: General Medical Stated complaint: uterus pain, back pain, blood in stool Time Seen by Provider: 11/05/23 12:54 History of Present Illness HPI narrative: 23 y/o F patient; PMH ADHD, bipolar disorder, anxiety; presents from home reporting significant suprapubic abdominal pain associated with multiple episodes of loose bowel movements and one episode of vomiting. Patient has had food aversion due to loose bowel movements. She states these symptoms have been for the last two days, but did also occur last Saturday (10/28/2023) before spontaneously improving. Also associated with diffuse lower back pain. She had one bowel movement in which she thought there might be blood mixed with the stool. She denies: fever or chills, chest pain, SOB, cough/congestion, known sick contacts, recent trauma. Last period ended 11/01 and was a regular period for the patient. She is currently sexually active with one male partner, she denies concern for STDs, she denies any history of STDs. No prior abdominal surgical history. Related Data Home Medications ?Medication ?Instructions ?Recorded ?Confirmed aripiprazole 5 mg tablet 5 mg PO DAILY 07/16/23 08/05/23 propranolol 10 mg tablet 10 mg PO BID 07/16/23 08/05/23 trazodone 50 mg tablet 100 mg PO BEDTIME PRN 07/16/23 08/05/23 dextroamphetamine-amphetamine ER 5 1 cap PO QAM 08/05/23 08/05/23 mg 24hr capsule,extend release Previous Rx's ?Medication ?Instructions ?Recorded ibuprofen 600 mg tablet 600 mg PO Q6H PRN pain #30 tabs 07/03/22 doxycycline hyclate 100 mg capsule 100 mg PO BID #20 caps 10/11/23 Allergies Allergy/AdvReac Type Severity Reaction Status Date / Time amoxicillin [AMOXICILLIN] Allergy Severe Hives Verified 11/05/23 09:44 cefadroxil [Cefadroxil] Allergy Severe anaphylaxis Verified 11/05/23 09:44 peanut [PEANUT] Allergy Severe LIP, Verified 11/05/23 09:44 TONGUE SWELLING. Review of Systems Review of Systems: Yes all other systems are reviewed and are negative PMFSH Past Medical History Attestation statement: The following information was validated with the patient. Source: old records reviewed Medical History ADHD Serum total bilirubin elevated Pilonidal abscess Positive hepatitis C antibody test Food allergy, peanut Lumbago with sciatica, right side Anxiety and depression Bipolar 1 disorder Insomnia Seizures Surgical History History of excision of pilonidal cyst (07/03/22) History of wisdom tooth extraction H/O removal of cyst Family History Family History Father PTSD (post-traumatic stress disorder) High cholesterol Mental health disorder Mother Loss of hearing Social History Social History Household Members: Family Housing: House Are you a primary personal care aide to a significant other at home: No Do you presently have visiting nurse or other home services: No Alcohol intake: never Patient Tobacco Use Status: Never used Tobacco Smoked in Last 30 Days: No e-Cigarette/Vaping Use: Never Used Use of substances other than those prescribed or required for medical reasons: No Substance Use Type: Marijuana Trauma History: none voiced Special beatriz needs: No Agree to transfusion: Yes Advance Directives: No Do you have a plan to hurt others: No Plan Patient : No service: No Current occupational status: employed Cognitive needs: No Hearing needs: No Vision needs: Yes Physical Exam ED Vital Signs: Vital Signs - 24 hr 11/05/23 09:44 11/05/23 13:06 11/05/23 15:24 Temperature 97.2 F 98.3 F Pulse Rate 114 H 86 87 Respiratory Rate 18 16 18 Blood Pressure 114/78 116/67 112/55 L Pulse Oximetry 99 100 100 Oxygen Delivery Method Room Air Room Air Room Air BMI result Body Mass Index 25.3 Patient is afebrile, tachycardic, normotensive. Const General: cooperative Orientation/consciousness: patient oriented x3 HENMT Head: Yes normal to inspection Eyes General: appearance normal, both eyes and all related structures Pupils: Equal, round and reactive pupils present Neck Neck: Yes normal visual inspection, Yes full ROM, Yes supple and No tender Chest Chest palpation & inspection: normal inspection of the chest and normal palpation of entire chest wall Resp Effort & Inspection: normal respiratory effort, able to speak in complete sentences and no respiratory distress Auscultation: clear to auscultation bilaterally Cardio Rate: tachycardic Rhythm: regular rhythm Peripheral pulses: Peripheral pulses 2+ throughout GI Palpation (GI): Soft to palpation, no guarding, not rigid and Other GI palpation findings present (Suprapubic abdominal tenderness ) Auscultation: normal bowel sounds Back/Spine/Pelvis Other: No reproducible CVA tenderness Neuro General: patient oriented x3 Cranial nerves: Yes Equal, round and reactive pupils present Course Course Course Narrative: Patient is afebrile, tachycardic, normotensive. Reviewed triage labs - UA unremarkable, upreg negative, no leukocytosis, baseline Hgb. Ordered for CT Abdomen/Pelvis. Providing 1L IVF to assess effect on tachycardia. Reevaluation(s) Reevaluation #1: Tachycardia resolved. Labs reviewed. No transaminitis. Normal lipase. COVID/Flu/RSV negative. CT Abdomen/Pelvis with some mucosal thickening involving a loop of sigmoid colon just above the bladder slightly to the left of the midline . Suspect suprapubic abdominal discomfort and diarrhea 2/2 to colitis. Patient tolerating liquids without difficulty. Discussed with patient. All questions answered. Plan: Discharge to home Condition: Stable Medications Administered Discontinued Medications Generic Name Dose Route Start Last Admin Trade Name Freq PRN Reason Stop Dose Admin Hydromorphone HCl 0.5 mg 11/05/23 13:23 11/05/23 13:31 Hydromorphone Hcl 0.5 Mg/0.5 Ml Syringe IVPUSH 11/05/23 13:24 0.5 mg ONCE ONE Administration Protocol Sodium Chloride 1,000 mls @ 999 mls/hr 11/05/23 13:00 11/05/23 14:16 Ns IV 11/05/23 14:00 Infused .Q1H1M MEGHAN Infusion Iohexol 100 ml 11/05/23 14:22 11/05/23 14:22 Iohexol 350 Mg/Ml 100 Ml Infus..Btl IV 11/05/23 14:23 85 ml ONCE ONE Administration Ondansetron HCl 4 mg 11/05/23 13:23 11/05/23 13:31 Ondansetron Hcl 4 Mg/2 Ml Vial IVPUSH 11/05/23 13:24 4 mg ONCE ONE Administration Medical Decision Making Lab Data 11/05/23 09:57 11/05/23 09:57 Labs: Lab Results 11/05/23 11/05/23 11/05/23 Range/Units 09:57 10:54 14:37 WBC 6.5 (4.8-10.8) X10*3/uL RBC 4.01 L (4.20-5.50) X10*6/uL Hgb 12.6 (12.0-16.0) g/dl Hct 36.8 L (37.0-47.0) % MCV 91.8 (80.0-98.0) fL MCH 31.4 (27.0-33.0) pg MCHC 34.2 (31.0-35.0) g/dl RDW 12.6 (11.0-16.0) % Plt Count 198 (160-400) X10*3/uL MPV 9.6 (9.4-12.3) fL Immature Gran % (Auto) 0.3 (0.0-0.4) % Neut % (Auto) 71.2 (45-73) % Lymph % (Auto) 19.3 L (20-40) % [place] % (Auto) 8.1 (2-11) % Eos % (Auto) 0.6 (0-4) % Baso % (Auto) 0.5 (0-2) % Lymph # (Auto) 1.3 (1.2-4.9) X10*3/uL [place] # (Auto) 0.5 (0.1-1.2) X10*3/uL Eos # (Auto) 0.0 (0.0-0.4) X10*3/uL Baso # (Auto) 0.0 (0.0-0.2) X10*3/uL Abs Immat Gran (auto) 0.02 (0.00-0.03) X10*3/uL Absolute Neuts (auto) 4.6 (2.0-8.3) x10*3/uL Absolute Nucleated RBC 0.000 (0.0-0.012) X10*3/uL Nucleated RBC % (auto) 0.0 (0.0-0.2) /100WBC Sodium 140 (135-145) mmol/L Potassium 4.2 (3.3-5.1) mmol/L Chloride 107 (96-108) mmol/L Carbon Dioxide 25 (22-29) mmol/L Anion Gap 12 (12-20) BUN 7 L (9-16) mg/dL Creatinine 0.69 (0.5-1.4) mg/dL Estim Creat Clear Calc 98.2 Estimated GFR > 60 Random Glucose 87 (60-115) mg/dL Calcium 9.5 (8.4-10.2) mg/dL Total Bilirubin 0.6 (0.0-1.0) mg/dL AST 20 (5-31) U/L ALT 16 (0-31) U/L Alkaline Phosphatase 39 (39-117) U/L Total Protein 7.1 (6.5-8.0) g/dL Albumin 4.0 (3.5-5.0) g/dL Lipase 23 (8-78) U/L Urine Color Yellow Urine Appearance Clear Urine pH 6.5 (5.0-9.0) Ur Specific [place] 1.020 (1.005-1.025) Urine Protein Negative (Neg-Trace) mg/dL Urine Glucose (UA) Negative (Negative) mg/dL Urine Ketones Negative (Negative) mg/dL Urine Blood Negative (Negative) Urine Nitrite Negative (Negative) Ur Leukocyte Esterase Negative (Negative) Urine Test NEGATIVE (NEGATIVE) Influenza Type A (PCR) NEGATIVE (Negative) Influenza Type B (PCR) NEGATIVE (Negative) RSV RNA Qual (PCR) NEGATIVE (Negative) SARS-CoV-2 RNA (RT-PCR) NEGATIVE (Negative) Radiology Impression Discussion of test interpretation with radiology: I have reviewed the radiologist's reading. Radiologist Impression: EXAMINATION: CT ABDOMEN AND PELVIS WITH CONTRAST CLINICAL INFORMATION: Suprapubic abdominal pain COMPARISON: Ultrasound abdomen 07/08/2023, CT abdomen pelvis 11/08/2020 TECHNIQUE: Multidetector volumetric images were obtained from the superior aspect of the liver through the pubic symphysis following administration 85 mL of Omnipaque 350 intravenous contrast. Sagittal and coronal reformatted images were obtained on the technologist's workstation. Oral contrast: No This CT examination was performed using dose optimization techniques as appropriate, variously including the following: *Automated exposure control *Adjustment of mA and/or kV according to patient size (this includes techniques or standardized protocols for targeted exams where dose is matched to indication/reason for exam; i.e. extremities or head) *Use of iterative reconstruction technique DLP: 396 mGy-cm FINDINGS: LUNG BASES: The visualized lung bases are unremarkable. LIVER, GALLBLADDER, AND BILIARY TREE: The liver is enlarged at 18.5 cm in greatest length. No focal hepatic lesion or biliary ductal dilatation is present. The gallbladder is unremarkable with no evidence of radiopaque gallstones, gallbladder wall thickening, or obvious pericholecystic inflammatory changes. PANCREAS: Unremarkable. SPLEEN: Unremarkable. ADRENAL GLANDS: Unremarkable. KIDNEYS AND URETERS: The kidneys are normal in size, shape, and attenuation. No hydronephrosis, hydroureter, or calculi seen. No perinephric stranding. BLADDER: Unremarkable. GASTROINTESTINAL TRACT: There is some mucosal thickening involving a loop of sigmoid colon just above the bladder slightly to the left of midline (3:64). The small and large bowel are otherwise unremarkable. The appendix is unremarkable. ABDOMINAL WALL: No significant hernia is appreciated. LYMPH NODES: Multiple subcentimeter short axis lymph nodes are noted in the mesentery, all under 1 cm in short axis dimension, increased in size since the prior study of 11/08/2020. No retroperitoneal lymphadenopathy seen. VASCULAR: Unremarkable. PELVIC VISCERA: The uterus and adnexa are unremarkable. Small amount of free fluid is present in the pelvis. OSSEOUS STRUCTURES: Unremarkable. CT/CT abdomen pelvis w IV con IMPRESSION: 1. There is some mucosal thickening involving a loop of sigmoid colon just above the bladder slightly to the left of midline. This may be secondary to colitis. 2. Multiple subcentimeter short axis lymph nodes are noted in the mesentery, all under 1 cm in short axis dimension, increased in size since the prior study of 11/08/2020. Fleischner guidelines were followed. Discharge Plan Discharge Clinical Impression: Colitis Patient Disposition: Home, Self-Care Instructions: Acute Diarrhea (ED) Additional Instructions: As we discussed, you were seen today for abdominal pain and diarrhea. Your , urine, and labs were unremarkable. Your CT scan showed a small area of your colon just around your bladder was thicker than normal. This is usually due to something called colitis or gastroenteritis . It is caused by a virus and typically takes 5 - 7 days to improve completely. You can take Tylenol 650mg every 6 hours for the abdominal pain. Focus on drinking fluids if you cannot tolerate solid foods. Follow up with your PCP within 2 - 3 days for re-evaluation. Return to the emergency department: Fever or chills Worsening abdominal pain Prescriptions: No Action ibuprofen 600 mg tablet 600 mg PO Q6H PRN (Reason: pain) Qty: 30 0RF doxycycline hyclate 100 mg capsule 100 mg PO BID Qty: 20 0RF propranolol 10 mg tablet 10 mg PO BID aripiprazole 5 mg tablet 5 mg PO DAILY trazodone 50 mg tablet 100 mg PO BEDTIME PRN dextroamphetamine-amphetamine 5 mg capsule,extended release 24hr 1 cap PO QAM Referrals: Bindu Ron MD [Primary Care Provider] - Print Language: Maori
[2023-11-05 13:06] VITALS: BP 116/67; PULSE 86; RESP 16; TEMP 36.8; O2SAT 100
--- NOTE | 2023-11-05 13:10 | PC.NURSE ---
a&ox4. vss and up to date. pt presents to the ED w/ 10 lower abdominal pain that radiates to lower back bilaterally x 2 days. tender w/ palpation. pt also verbalizing n/v/d/dizziness/hot flashes. pt reports bright red bloody stool. pt also verbalizes some diarrhea last week but went away up until 2 days ago. 20gIV placed in the right AC - IVF administered per provider order. pt seen by ED provider/aware of plan of care. pt waiting to go to CT at this time. no sob/wob noted. respirations even and unlabored. plan of care ongoing. call bolton placed within reach.
[2023-11-05] MEDS: 0.9 % Sodium Chloride 1,000 ML 999 ML IV (13:14)
[2023-11-05 13:27] LABS: Lipase 23 U/L (8-78)
[2023-11-05] MEDS: ondansetron HCL 4 MG/2 ML VIAL IVPUSH (13:31)
[2023-11-05] MEDS: HYDROmorphone HCl 0.5 MG/0.5 ML SYRINGE IVPUSH (13:31)
--- NOTE | 2023-11-05 13:42 | PC.NURSE ---
pt tearful d/t increase in pain. pt medicated per provider order. effectiveness pending. hot pack applied to abdomen to promote comfort.
--- NOTE | 2023-11-05 14:14 | PC.NURSE ---
pt to CT at this time.
[2023-11-05] MEDS: iohexoL 350 MG/ML 100 ML INFUS..BTL IV (14:22)
--- NOTE | 2023-11-05 14:33 | PC.NURSE ---
swabs obtained/sent to lab by tech.
[2023-11-05 15:24] VITALS: BP 112/55; PULSE 87; RESP 18; O2SAT 100
[2023-11-05 15:29] LABS: Influenza A PCR NEGATIVE (Negative); Influenza B PCR NEGATIVE (Negative); Resp Syncy Virus RNA Qual PCR NEGATIVE (Negative); SARS COV2 PCR INHOUSE NEGATIVE (Negative)
[2023-11-05 16:25] VITALS: BP 110/53; PULSE 73; RESP 16; TEMP 36.6; O2SAT 99
== END 2023-11-05 17:10 | disposition home or self-care (01) ==
PROVIDERS: Emergency Medicine; Emergency Provider Emergency Medicine; PCP Internal Medicine
DX: K52.9 Noninfective gastroenteritis and colitis, unspecified (principal); R10.30 Lower abdominal pain, unspecified; R11.10 Vomiting, unspecified; M54.50 Low back pain, unspecified
CPT/HCPCS: 0241U; 36415; 74177; 80053; 81003; 81025; 83690; 85025; 96361; 96374; 96375; 99284; J1170; J2405; Q9967

== ENCOUNTER 2023-11-19 11:32 | Outpatient (AMB) | payer OTHER, SELFPAY ==
--- NOTE | 2023-11-19 11:39 | A.OFFVIS_ITS ---
Vital Signs 11/19/23 11:44 Height 4 ft 11 in Weight 124 lb 12.506 oz BMI 25.2 BP 108/64 Blood Pressure Location Rt brachial Position Sitting Pulse 88 Pulse Source Pulse Oximeter Pulse Oximetry (%) 99 Oxygen Delivery Method Room Air Intake Visit Reasons: 2 month follow up Intake Note: Samm presents in office today for a scheduled 2 mos FUV. CC; Pt is here to discuss lab results today, as well as their recent diagnostics. Pt reports that they had recently been admitted to the ED for colitis approximately 2.5 weeks ago. Pt states that they are feeling much better since then. No issues currently Colored Liquid Plastic Applier Required: No Allergies amoxicillin [AMOXICILLIN] Allergy (Severe, Verified 11/19/23 11:43) Hives cefadroxil [Cefadroxil] Allergy (Severe, Verified 11/19/23 11:43) anaphylaxis peanut [PEANUT] Allergy (Severe, Verified 11/19/23 11:43) LIP, TONGUE SWELLING. HPI HPI 2 month follow up: Details: LAST VISIT Right upper quadrant abdominal pain History of jaundice Serum total bilirubin elevated Gilbert's disease Plan Mildly elevated bilirubin with normal transaminase most likely related to Gilbert syndrome. Occasional abdominal pain in the right upper quadrant could be related that to biliary dyskinesia. We will send patient for HIDA scan. Ultrasound shows hepatic steatosis will rule out the cause. History of positive hep C antibody and negative viral load in 2020. Will repeat the viral load today. Patient will return in 2 months, sooner on as needed basis. She is agreeable to this plan and verbalizes understanding of instructions. He was given the opportunity to ask questions and all questions answered. ? Thank you for allowing me to participate in her care Orders Orders Alpha Fetoprotein Today R79.89 Prothrombin Time INR Today R74.8 Smooth Muscle Antibody Today R79.89 C Reactive Protein Today K58.9 HIV Ab/Ag Today R79.89 Complete Blood Count no Diff Today K21.9 Liver Fibrosis Pnl Today R74.8 Hepatitis A,B,C Profile Today R79.89 Ceruloplasmin Today R79.89 TSH reflex Free T4 Today K59.00 Liver Panel Today R74.01 Ferritin Today R74.8 Gamma Glutamyl Transpeptidase Today R74.8 NM hepatobiliary w pharm Today R10.11 Hepatitis C Viral Load Today Z86.19 TODAY'S VISIT Patient is here today for follow-up. Recent visit to ED about 2 weeks ago for abdominal pain, diarrhea. Patient was diagnosed with mild colitis of sigmoid colon. Since then patient has been feeling well. Denies any GI concerning symptoms. HIDA scan done and no acute processes found. Patient had blood work done as well and it was normal. All the results discussed with patient. During visit in the ER lab work did not show any acute processes. Patient had no leukocytosis. Since then patient has been doing well, however occasionally patient will have loose stools after meals. Patient reports occasional acid reflux. Denies any dyspepsia, dysphagia or odynophagia. Denies any melena, hematochezia, unintentional weight loss or ribbon like stools. [facility] Medical History ADHD Serum total bilirubin elevated Pilonidal abscess Positive hepatitis C antibody test Food allergy, peanut Lumbago with sciatica, right side Anxiety and depression Bipolar 1 disorder Insomnia Seizures Surgical History History of excision of pilonidal cyst (07/03/22) History of wisdom tooth extraction H/O removal of cyst Family History Father PTSD (post-traumatic stress disorder) High cholesterol Mental health disorder Mother Loss of hearing Social History Household Members: Family Both parents involved: Yes Housing: House Are you a primary rn home care to a significant other at home: No Do you presently have visiting nurse or other home services: No Alcohol intake: never Patient Tobacco Use Status: Never used Tobacco e-Cigarette/Vaping Use: Never Used Substance Use Type: Marijuana Trauma History: none voiced Special beatriz needs: No Agree to transfusion: Yes service: No Current occupational status: employed Cognitive needs: No Hearing needs: No Vision needs: Yes Female Reproductive History Menstrual Age of Menarche: 10 Review of Systems Const Denies weight gain and Denies weight loss ENT Reports no additional complaints, Denies dysphagia and Denies odynophagia Card Reports no additional complaints Resp Reports no additional complaints GI Denies abdominal pain, Denies belching, Denies melena, Denies bloating, Denies change in bowel habits, Denies dysphagia, Denies excessive flatus, Denies dyspepsia, Denies heartburn, Denies diarrhea, Denies loose stools, Denies nausea, Denies odynophagia and Denies vomiting Musc Reports no additional complaints Neuro Reports no additional complaints Psych Reports no additional complaints Endo Reports no additional complaints Physical Exam Vital Signs: Last Vital Signs Pulse 88 11/19/23 11:44 BP 108/64 11/19/23 11:44 Pulse Ox 99 11/19/23 11:44 Oxygen Delivery Method Room Air 11/19/23 11:44 BMI result Body Mass Index 25.2 Const General: healthy appearing, no acute distress and well developed Nutritional Appearance: well nourished Orientation/consciousness: patient oriented x3 Resp Effort & Inspection: normal respiratory effort, able to speak in complete sentences, no tracheal deviation and symmetric chest movement Auscultation: clear to auscultation bilaterally Cardio Rate: regular rate GI Inspection: Yes normal to inspection and No distended Palpation (GI): Soft to palpation, not firm, nontender and No hepatosplenomegaly present Auscultation: normal bowel sounds General: Yes no CVA tenderness Back/Spine/Pelvis Back: no CVA tenderness Skin General skin exam: elasticity normal, turgor normal and dry skin Neuro General: patient oriented x3 Psych Appearance: grossly normal Mental Status: mental status grossly normal Results Reviewed Results Reviewed: Laboratory Tests 09/27/23 11/05/23 08:00 09:57 Hgb 12.6 Hct 36.8 L MCV 91.8 Total Bilirubin 1.7 H 0.6 Direct Bilirubin 0.5 GGT 19 AST 23 ALT 20 Liver GGT 15 Liver Total Bilirubin 1.4 H Liver Apolipoprotein A1 208 H Liver Fibrosis ALT 18 Liver Fibrosis Score 0.07 Liver Fibrosis Stage F0 C-Reactive Protein < 0.04 Ceruloplasmin 22 Alpha Fetoprotein 0.8 TSH 0.77 Anti-Smooth Muscle Ab <20 Hepatitis A IgM Ab Nonreactive Hep Bs Antigen Negative Hep Bs Antibody REACTIVE Hep B Core Total Ab Nonreactive Hepatitis C Ab (EIA) Nonreactive Hep C Viral Load <15 NOT DETECTED Hep C Viral Load Log <1.18 NOT DETECTED HIV 1&2 Ab/P24 Ag 4thGn Nonreactive HIDA SCAN: 10/07/2023 FINDINGS: There is good concentration of activity in the liver by 5 minutes post injection. Biliary activity is visualized by 15 minutes. The gallbladder is well visualized by 25 minutes. Small bowel is well visualized by 75 minutes. At 65 minutes post radiopharmaceutical injection, a 30-minute infusion of 1.2 micrograms Sincalide was then begun and an additional 30 minutes of images were obtained. There is good emptying of the gallbladder. By the end of the study there is good clearance of activity from the liver and visualization of diffuse small bowel activity. The calculated gallbladder ejection fraction is 98% (normal gallbladder ejection fraction is greater than 35%). NM/NM hepatobiliary w pharm IMPRESSION: Visualization of the gallbladder is evidence of a patent cystic duct and strong evidence against the diagnosis of acute cholecystitis. The common bile duct is patent. Gallbladder emptying and ejection fraction are normal. Liver function appears normal. CT OF ABDOMEN AND PELVIS 11/05/2023 FROM ED VISIT IMPRESSION: 1. There is some mucosal thickening involving a loop of sigmoid colon just above the bladder slightly to the left of midline. This may be secondary to colitis. 2. Multiple subcentimeter short axis lymph nodes are noted in the mesentery, all under 1 cm in short axis dimension, increased in size since the prior study of 11/08/2020. Assessment & Plan Assessment & Plan (1) Right upper quadrant abdominal pain: Code(s): R10.11 - Right upper quadrant pain Category: Medical (2) History of jaundice: Code(s): Z87.898 - Personal history of other specified conditions Category: Medical (3) Serum total bilirubin elevated: Code(s): R17 - Unspecified jaundice Category: Medical (4) Gilbert's disease: Code(s): E80.4 - Gilbert syndrome (5) GERD (gastroesophageal reflux disease): Code(s): K21.9 - Gastro-esophageal reflux disease without esophagitis Qualifiers: Esophagitis presence: esophagitis presence not specified Qualified Code(s): K21.9 - Gastro-esophageal reflux disease without esophagitis (6) Biliary and gallbladder disorder: Code(s): K83.9 - Disease of biliary tract, unspecified (7) History of colitis: Code(s): Z87.19 - Personal history of other diseases of the digestive system Plan Normal physical exam. No tenderness to abdomen, no guarding during exam. Patient will start taking Citrucel to help her bulk stools. Patient will also try to change her diet. Low FODMAP diet discussed with patient. List of food recommended as well as list of food to avoid given to patient. Occasional postprandial acid reflux without dyspepsia, dysphagia or odynophagia. Patient will start taking omeprazole daily for short treatment to see if any improvement. Patient will call if her symptoms will continue. Patient will return in 2 months, sooner on as needed basis. If patient continues with sy mptoms we will send her for upper endoscopy. She is agreeable to this plan and verbalizes understanding of instructions. She was given the opportunity to ask questions and all questions answered. Thank you for allowing me to participate in her care Medications: New methylcellulose (laxative) (Citrucel) take it with full glass of water 500 mg PO DAILY 30 tabs 2RF K59.00 - Constipation, unspecified omeprazole 20 mg PO DAILY 30 caps 3RF K21.9 - Gastro-esophageal reflux disease without esophagitis Coding Level of Care Code Est Pt Level 4 (77324) Diagnoses Right upper quadrant abdominal pain R10.11 History of jaundice Z87.898 Serum total bilirubin elevated R17 Gilbert's disease E80.4 Gastroesophageal reflux disease, unspecified whether esophagitis present K21.9 Esophagitis presence: esophagitis presence not specified Biliary and gallbladder disorder K83.9 History of colitis Z87.19 Time Spent (min) 35 Comment 20 minutes spent with patient and additional 15 minutes spent reviewing her records
[2023-11-19 11:44] VITALS: BP 108/64; PULSE 88; O2SAT 99; BMI 25.2
== END 2023-11-19 12:05 | disposition home or self-care (01) ==
LOC: HO.HGI 11:32
PROVIDERS: PCP Internal Medicine; Visit Provider Nurse Practitioner Family
DX: R10.11 Right upper quadrant pain (principal); Z87.898 Personal history of other specified conditions; R17 Unspecified jaundice; E80.4 Gilbert syndrome; K21.9 Gastro-esophageal reflux disease without esophagitis; K83.9 Disease of biliary tract, unspecified; Z87.19 Personal history of other diseases of the digestive system
CPT/HCPCS: 99214

== ENCOUNTER → 2023-11-19 11:32 | Outpatient (BNVA) | payer OTHER, SELFPAY | PROVIDERS: PCP Internal Medicine; Visit Provider Nurse Practitioner Family | DX: R10.11 Right upper quadrant pain (principal); R17 Unspecified jaundice; E80.4 Gilbert syndrome; K83.9 Disease of biliary tract, unspecified; K21.9 Gastro-esophageal reflux disease without esophagitis; Z87.19 Personal history of other diseases of the digestive system | CPT/HCPCS: 99212 ==

== ENCOUNTER 2023-12-09 08:03 | Outpatient (AMB) | payer OTHER, SELFPAY ==
[2023-12-09 08:09] VITALS: BP 102/60; PULSE 71; O2SAT 100; BMI 25.0
--- NOTE | 2023-12-09 08:09 | MHC.PC.OV ---
Vital Signs 12/09/23 08:09 Height 4 ft 11 in Weight 124 lb BMI 25.0 BP 102/60 Blood Pressure Location Rt brachial Position Sitting Pulse 71 Pulse Source Pulse Oximeter Pulse Oximetry (%) 100 Oxygen Delivery Method Room Air Intake Visit Reasons: Annual PE Intake Note: Pt is here today for her PE Is last menstrual period known: Yes Last menstrual period: 11/26/23 Allergies amoxicillin [AMOXICILLIN] Allergy (Severe, Verified 12/09/23 08:19) Hives cefadroxil [Cefadroxil] Allergy (Severe, Verified 12/09/23 08:19) anaphylaxis peanut [PEANUT] Allergy (Severe, Verified 12/09/23 08:19) LIP, TONGUE SWELLING. Medication List - Last Reconciled 12/09/23 by Bindu Ron MD aripiprazole 5 mg PO DAILY dextroamphetamine-amphetamine 5 mg ER 1 cap PO QAM omeprazole 20 mg PO DAILY propranolol 10 mg PO BID Tobacco use date assessed: 12/09/23 Dental Screening Dental Screen Date: 12/09/23 Did you have a dental visit in the last 12 months?: Yes Did you have a dental problem in the last 6 months where you did not have access to dental care?: No Was dental information given to patient?: Patient has dentist HPI Annual PE HPI Details 23-year-old lady here today for her physical exam. She is currently being treated at and by psychiatrist and sees a therapist for her ADHD and bipolar disorder, which are currently both controlled under medications. She has been seen by GI recently and noted to have elevated liver transaminase, likely Gilbert's disease, placed on a diet which patient has been following and states that it has been helping prevent recurrence of symptoms Complains of recurrent right lower back pain radiating down right leg. 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 Patient states that she was referred to [facility] spine sports at that time and had physical therapy which has helped. Denies any urinary incontinence, no muscle weakness [facility] History Lumbar back pain with radiculopathy affecting right lower extremity ADHD Serum total bilirubin elevated Pilonidal abscess Positive hepatitis C antibody test Food allergy, peanut Lumbago with sciatica, right side Anxiety and depression Bipolar 1 disorder Insomnia Seizures Surgical History History of excision of pilonidal cyst (07/03/22) History of wisdom tooth extraction H/O removal of cyst Family History Father PTSD (post-traumatic stress disorder) High cholesterol Mental health disorder Mother Loss of hearing Social History Household Members: Family Housing: House Are you a primary acute care clinical nurse specialist to a significant other at home: No Do you presently have visiting nurse or other home services: No Alcohol intake: never Patient Tobacco Use Status: Never used Tobacco e-Cigarette/Vaping Use: Never Used Substance Use Type: Marijuana Trauma History: none voiced Special beatriz needs: No Agree to transfusion: Yes service: No Current occupational status: employed Cognitive needs: No Hearing needs: No Vision needs: Yes Female Reproductive History Menstrual Age of Menarche: 10 Date of last menstrual period: 11/26/23 Other: Previously seen by OBGYN at [facility], now needs referra to a new OBGYN due to change in insurance Questionnaire PHQ-9 Over the last 2 weeks, how often have you been bothered by any of the following problems? Depression Screening Interpretation: Negative Depression Screening Done: Yes Source: Developed by Drs. Kodi Ferreira, Inocente Swanson and colleagues, with an educational hayden from [employer]. Thrive Questionnaire Date Thrive assessed: 10/11/23 ALEXANDRE-7 AMB Questionnaire ALEXANDRE-7 Date ALEXANDRE - 7 assessed: 10/11/23 Source: Developed by Drs. Kodi Ferreira, Inocente Swanson and colleagues, with an educational hayden from [employer]. Review of Systems Const Denies weight gain and Denies weight loss Eyes Details: [facility] , has myopia and astigmatism ENT Reports no additional complaints, Denies dysphagia and Denies odynophagia Card Reports no additional complaints Resp Reports no additional complaints GI Denies abdominal pain, Denies belching, Denies melena, Denies bloating, Denies change in bowel habits, Denies dysphagia, Denies excessive flatus, Denies dyspepsia, Denies heartburn, Denies diarrhea, Denies loose stools, Denies nausea, Denies odynophagia and Denies vomiting Reports no additional complaints Musc Reports as per HPI Skin/Breast Denies breast swelling, Denies breast pain, Denies breast mass and Denies rash Neuro Reports no additional complaints, Denies Abnormal speech present and Denies Sensory deficit (Neuro) Psych Reports no additional complaints Endo Reports no additional complaints Delgado/Lymph Reports no additional complaints Aller/Immun Reports no additional complaints Physical exam (Primary Care) Vital Signs: Last Vital Signs Pulse 71 12/09/23 08:09 BP 102/60 12/09/23 08:09 Pulse Ox 100 12/09/23 08:09 Oxygen Delivery Method Room Air 12/09/23 08:09 BMI result Body Mass Index 25.0 Tobacco/Smoking Status: Tobacco use Status Tobacco use date assessed 12/09/23 12/09/23 08:16 Patient Tobacco Use Status Never used Tobacco 12/09/23 08:16 e-Cigarette/Vaping Use Never Used 12/09/23 08:16 Depression Screening Interpretation: Negative Thrive Assessment: Date of Thrive Assessment Date Thrive assessed 10/11/23 12/09/23 08:16 Const General: comfortable, no acute distress and alert Nutritional Appearance: average body habitus Orientation/consciousness: patient oriented x3 HENMT Ears: external ears normal General nose exam: Normal external nose present and Abnormal mucous membranes and turbinates present erythematous Face and sinus: Yes face symmetric Mouth: Normal oral and palatal mucosa present, oropharynx normal and moist mucous membranes Eyes General: appearance normal, both eyes and all related structures Neck Neck: Yes full ROM, Yes no lymphadenopathy and Yes supple Chest Breast/axilla palpation: normal palpation of the breasts Resp Auscultation: clear to auscultation bilaterally Cardio Rate: regular rate Rhythm: regular rhythm Heart sounds: S1 normal heart sound present and S2 normal heart sound present GI Palpation (GI): Soft to palpation, nontender, no guarding and no masses General: Yes no CVA tenderness Back/Spine/Pelvis Back: no CVA tenderness and No back tenderness Skin Other: Tattoos on right arm General skin exam: no rashes or lesions noted Neuro General: patient oriented x3 Speech: No Abnormal speech present Sensory Exam: No Sensory deficit (Neuro) Extrem General: Yes full ROM, Yes no joint enlargement, Yes no clubbing, cyanosis or edema and Yes normal gait Psych Appearance: grossly normal Mental Status: mental status grossly normal Speech and movement: Normal speech and movement present Affect: normal affect Results Reviewed Results Reviewed: Name: Samm Wu Age/Sex: 23/F : 2000 Unit#: [id number] Attend Dr: Ligia Fair MD Re11/05/23 Status: DEP [facility] Disch: SPEC : [id number] DENNISE: 11/05/23 STATUS: COMP REQ : [id number] RECD: 11/05/[address]: Christopher Luciano MD COMP: 11/05/23 ENTERED: 11/05/[address]: Bindu Ron MD [facility] ED Physician ORDERED: CMP, Lip Test Result Flag Reference Sodium 140 135-145 mmol/L Potassium 4.2 3.3-5.1 mmol/L CL 107 96-108 mmol/L CO2 25 22-29 mmol/L Gap 12 12-20 BUN 7 L 9-16 mg/dL Creat 0.69 0.5-1.4 mg/dL Estimated CrCl 98.2 Provided height and weight: 149.86 cm, 56.8 kg. eGFR (calculated from the MDRD study equation) and eCrCl (calculated from the Cockcroft-Gault equation) are based on different parameters and may not yield comparable results. If eCrCl result is absurd, please check patient's height/weight. EGFR > 60 NOTE: For -Malagasy individuals, multiply the result by 1.210. Chronic Kidney Disease: Estimated GFR < 60 mL/min/1.73m2 Severe Kidney Disease: Estimated GFR < 15 mL/min/1.73m2 Glucose, Random 87 60-115 mg/dL CA 9.5 8.4-10.2 mg/dL Total Bili 0.6 0.0-1.0 mg/dL AST (GOT) 20 5-31 U/L ALT (GPT) 16 0-31 U/L Protein, Total 7.1 6.5-8.0 g/dL Alb 4.0 3.5-5.0 g/dL Alk Phos 39 39-117 U/L Lipase 23 8-78 U/L Name: Samm Wu Age/Sex: 23/F : 2000 Unit#: [id number] Attend Dr: Ligia Fair MD Re11/05/23 Status: DEP [facility] Disch: SPEC : [id number] DENNISE: 11/05/23 STATUS: COMP REQ : [id number] RECD: 11/05/[address]: Christopher Luciano MD COMP: 11/05/23 ENTERED: 11/05/[address]: Bindu Ron MD [facility] ED Physician ORDERED: CBC Auto Diff Test Result Flag Reference WBC 6.5 4.8-10.8 X10*3/uL RBC 4.01 L 4.20-5.50 X10*6/uL HGB 12.6 12.0-16.0 g/dl HCT 36.8 L 37.0-47.0 % MCV 91.8 80.0-98.0 fL MCH 31.4 27.0-33.0 pg MCHC 34.2 31.0-35.0 g/dl RDW 12.6 11.0-16.0 % PLT 198 160-400 X10*3/uL MPV 9.6 9.4-12.3 fL Neut Pct Auto 71.2 45-73 % ImGran Pct Auto 0.3 0.0-0.4 % Lymp Pct Auto 19.3 L 20-40 % [place] Pct Auto 8.1 2-11 % Eos Pct Auto 0.6 0-4 % Baso Pct Auto 0.5 0-2 % NRBC Pct Auto 0.0 0.0-0.2 /100WBC ANC Neut Abs # 4.6 2.0-8.3 x10*3/uL ImGran Abs Auto 0.02 0.00-0.03 X10*3/uL Lymph Abs Auto 1.3 1.2-4.9 X10*3/uL [place] Abs Auto 0.5 0.1-1.2 X10*3/uL Eos Abs Auto 0.0 0.0-0.4 X10*3/uL Baso Abs Auto 0.0 0.0-0.2 X10*3/uL NRBC Abs Auto 0.000 0.0-0.012 X10*3/uL Assessment and Plan Assessment & Plan (1) Cervical cancer screening: Code(s): Z12.4 - Encounter for screening for malignant neoplasm of cervix Plan: Referred to [facility] for her routine Pap and pelvic exam, remote history of abnormal Pap, but last Pap done in 2021 at [facility] showed results within normal limits (2) Annual visit for general adult medical examination with abnormal findings: Code(s): Z00.01 - Encounter for general adult medical examination with abnormal findings Plan: \Will check appropriate labs. Recommended dental visit every 6 months and regular eye exams, at least every 2 years. Take adequate calcium in diet and vitamin-D 3 at 2000 IU per cap once a day, in addition to weight-bearing exercises to help maintain good muscle tone and weight control. Instructed to do self-breast exam, and recommended to get yearly mammogram, starting at age 40. Has had COVID vaccines in the past does not want to get the booster, refuses to get flu shot, up-to-date with her Tdap. (3) Lumbar back pain with radiculopathy affecting right lower extremity: Code(s): M54.16 - Radiculopathy, lumbar region Plan: Will refer to physical therapy, if no improvement will repeat another lumbar MRI (4) Fatigue: Code(s): R53.83 - Other fatigue Plan: CBC done showed normal findings, fasting glucose, electrolytes, liver enzymes are also within normal limits. Will check a TSH with free T4, vitamin-D and vitamin B12 left Orders: Orders PT Evaluation and Treatment Today M54.16 - Radiculopathy, lumbar region Vitamin D 25-OH Total Today R53.83 - Other fatigue, Z00.01 - Encounter for general adult medical examination with abnormal findings Lipid Panel Today R53.83 - Other fatigue, Z00.01 - Encounter for general adult medical examination with abnormal findings TSH reflex Free T4 Today R53.83 - Other fatigue, Z00.01 - Encounter for general adult medical examination with abnormal findings Vitamin B12 and Folate Today R53.83 - Other fatigue, Z00.01 - Encounter for general adult medical examination with abnormal findings [facility]errals [facility] Referral Z00.01 - Encounter for general adult medical examination with abnormal findings, Z12.4 - Encounter for screening for malignant neoplasm of cervix Coding Level of Care Code Est Pt Prev Care [id number]([id number]) Diagnoses Cervical cancer screening Z12.4 Annual visit for general adult medical examination with abnormal findings Z00.01 Lumbar back pain with radiculopathy affecting right lower extremity M54.16 Fatigue R53.83
== END 2023-12-09 08:48 | disposition home or self-care (01) ==
PROVIDERS: PCP Internal Medicine; Visit Provider Internal Medicine
DX: Z00.00 Encounter for general adult medical examination without abnormal findings (principal); M54.16 Radiculopathy, lumbar region; R53.83 Other fatigue
CPT/HCPCS: 99395

== ENCOUNTER 2023-12-09 08:49 | Outpatient (REF) | payer OTHER, SELFPAY ==
[2023-12-09 12:46] LABS: TSH reflex Free T4 1.24 uIU/mL (0.32-4.0); Vitamin D 25-OH Total 31.3 ng/mL (>30)
[2023-12-09 12:50] LABS: Cholesterol 161 mg/dL (<200); HDL Cholesterol 52 mg/dL (>40); LDL Cholesterol Calculated 74 mg/dL (<100); Triglycerides 176 mg/dL (<150)
[2023-12-09 12:59] LABS: Vitamin B12 522 pg/mL (200-900)
== END 2023-12-09 08:50 | disposition home or self-care (01) ==
LOC: HO.HMGCLDS 08:49
PROVIDERS: PCP Internal Medicine; Visit Provider Internal Medicine
DX: Z00.01 Encounter for general adult medical examination with abnormal findings (principal); R53.83 Other fatigue
CPT/HCPCS: 36415; 80061; 82306; 82607; 82746; 84443

== ENCOUNTER 2024-01-09 09:45 | Outpatient (AMB) | payer OTHER, SELFPAY ==
[2024-01-09 09:51] VITALS: BP 116/68; BMI 25.4
--- NOTE | 2024-01-09 09:51 | MHC.OFFVIS ---
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 She is doing very well now she says her focus is taking care of herself and her son. 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 She has not had a seizure in about 4 or 5 years. She says she is doing really well with her bipolar and with her taking care of herself and eating well and going for walks with her son in the evening and she is doing very well. She is in a monogamous relationship she is using condoms but she would be interested in STI testing just to be sure she is signed up for the portal but has difficulty seeing results and will need to ask for help with that. She uses condoms 100% and if anything ever happened she would use plan B. [facility] Medical History (Updated 01/09/24 @ 10:28 by Cintia Liz CNM) Lumbar back pain with radiculopathy affecting right lower extremity ADHD Serum total bilirubin elevated Pilonidal abscess Positive hepatitis C antibody test Food allergy, peanut Lumbago with sciatica, right side Anxiety and depression Bipolar 1 disorder Insomnia Seizures Surgical History History of excision of pilonidal cyst (07/03/22) History of wisdom tooth extraction H/O removal of cyst Family History Father PTSD (post-traumatic stress disorder) High cholesterol Mental health disorder Mother Loss of hearing Social History Household Members: Family Both parents involved: Yes Housing: House Are you a primary home care provider to a significant other at home: No Do you presently have visiting nurse or other home services: No Alcohol intake: never Patient Tobacco Use Status: Never used Tobacco e-Cigarette/Vaping Use: Never Used Substance Use Type: Marijuana Trauma History: none voiced Special beatriz needs: No Agree to transfusion: Yes service: No Current occupational status: employed Cognitive needs: No Hearing needs: No Vision needs: Yes Female Reproductive History Menstrual Age of Menarche: 10 Duration of menses: 3-5 days Date of last menstrual period: 12/27/23 control method: none Total pregnancies: 1 Full term: 1 Date of last pap smear: 07/09/21 (negative,(per patient)[facility] [employer]PER[employer]) Physical Exam Vital Signs: Last Vital Signs BP 116/68 01/09/24 09:51 BMI result Body Mass Index 25.4 Const General: healthy appearing, comfortable, no acute distress, well developed and alert Nutritional Appearance: average body habitus Orientation/consciousness: patient oriented x3 Limitations: no limitations HEENT Head: Yes normocephalic Neck Neck: Yes normal visual inspection Chest Chest palpation & inspection: normal inspection of the chest Breast/axilla inspection: normal inspection of the breasts and normal inspection of the axillae Breast/axilla palpation: normal palpation of the breasts and normal palpation of the axillae Resp Effort & Inspection: normal respiratory effort GI Inspection: Yes normal to inspection, No Abdominal wall edema and No distended Palpation (GI): Soft to palpation and nontender Other: External exam within normal limits vagina is pink and moist cervix multiparous pink smooth with clear healthy midcycle mucus. Cervix is posterior uterus small anteverted to midposition nontender mobile adnexa nontender excellent tone with Kegel. General: Yes bladder normal to palpation External Female Exam: normal external appearance and normal appearance of the urethra Speculum Exam - Vagina: normal appearance of the vagina, normal palpation and normal vaginal discharge Speculum Exam - Cervix: normal appearance of the cervix, normal palpation and nontender Bimanual exam- vagina & uterus: normal bimanual exam, normal palpation, uterine size normal, bladder normal to palpation, consistency normal, normal palpation, uterine mobility normal, uterine shape normal, No Cervical tenderness present, non-tender and no cervical motion tenderness Bimanual Exam- Adnexa, other: normal adnexae, no masses, normal and No adnexal tenderness Neuro General: patient oriented x3 Assessment & Plan Assessment & Plan (1) Bipolar 1 disorder: Code(s): F31.9 - Bipolar disorder, unspecified Category: Medical (2) Well woman exam with routine gynecological exam: Code(s): Z01.419 - Encounter for gynecological examination (general) (routine) without abnormal findings Category: Medical (3) control counseling: Code(s): Z30.09 - Encounter for other general counseling and advice on contraception Category: Medical (4) Cervical cancer screening: Code(s): Z12.4 - Encounter for screening for malignant neoplasm of cervix Category: Medical (5) Encounter for screening examination for sexually transmitted disease: Code(s): Z11.3 - Encounter for screening for infections with a predominantly sexual mode of transmission Category: Medical Plan See HPI for the details. -----Discussed in this visit the following: healthy balanced diet, regular and consistent exercise, getting recommended health screens, doing the best she can for her particular health concerns, kegel exercises, pap smear screening and followup recommendations, mammography screening and SBE, normal changes in cycles in her life stage--- . Reviewed her excellent self-care and paying attention to how she is doing. She is trying to eat very well to manage GI issues as well and she cited very healthy dietary intake. She had been on control but did not like how the hormones made her feel so she is doing better using condoms and her plan would be Plan B for backup if she needed it. I sending a prescription for Plan B should she need it and I am placing orders for STI blood work that she can get done when she wishes. 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 We will see her in 1 year. Pap smear was done as well as the testing for STIs and reviewed her awareness of her cycles and excellent self-care and use of condoms. Orders: Orders Hepatitis C Antibody Today F31.9 - Bipolar disorder, unspecified, Z01.419 - Encounter for gynecological examination (general) (routine) without abnormal findings, Z11.3 - Encounter for screening for infections with a predominantly sexual mode of transmission, Z12.4 - Encounter for screening for malignant neoplasm of cervix, Z30.09 - Encounter for other general counseling and advice on contraception HIV Ab/Ag Today F31.9 - Bipolar disorder, unspecified, Z01.419 - Encounter for gynecological examination (general) (routine) without abnormal findings, Z11.3 - Encounter for screening for infections with a predominantly sexual mode of transmission, Z12.4 - Encounter for screening for malignant neoplasm of cervix, Z30.09 - Encounter for other general counseling and advice on contraception Syphilis Screen Today F31.9 - Bipolar disorder, unspecified, Z01.419 - Encounter for gynecological examination (general) (routine) without abnormal findings, Z11.3 - Encounter for screening for infections with a predominantly sexual mode of transmission, Z12.4 - Encounter for screening for malignant neoplasm of cervix, Z30.09 - Encounter for other general counseling and advice on contraception Hepatitis B Surface Antigen Today F31.9 - Bipolar disorder, unspecified, Z01.419 - Encounter for gynecological examination (general) (routine) without abnormal findings, Z11.3 - Encounter for screening for infections with a predominantly sexual mode of transmission, Z12.4 - Encounter for screening for malignant neoplasm of cervix, Z30.09 - Encounter for other general counseling and advice on contraception Medications: New levonorgestrel (Plan B One-Step) 1.5 mg PO ONCE 1 tab 2RF Coding Level of Care Code Est Pt Prev Care 18-39y(59267) Diagnoses Bipolar 1 disorder F31.9 Well woman exam with routine gynecological exam Z01.419 control counseling Z30.09 Cervical cancer screening Z12.4 Encounter for screening examination for sexually transmitted disease Z11.3
== END 2024-01-09 10:28 | disposition home or self-care (01) ==
LOC: HO.HWSM 09:45
PROVIDERS: PCP Internal Medicine; Visit Provider Advanced Practice Midwife
DX: Z01.419 Encounter for gynecological examination (general) (routine) without abnormal findings (principal); F31.9 Bipolar disorder, unspecified; Z30.09 Encounter for other general counseling and advice on contraception
CPT/HCPCS: 99395

== ENCOUNTER 2024-01-09 09:45 | Outpatient (REF) | payer OTHER, SELFPAY ==
[2024-01-14 04:24] LABS: CT PCR NOT DETECTED (Not Detect.); NG PCR NOT DETECTED (Not Detect.)
[2024-01-14 08:57] LABS: Bacterial Vaginosis PCR NEGATIVE (Negative); Candida Group PCR DETECTED (Not Detect); Candida glab krusei PCR NOT DETECTED (Not Detect); Trichomonas vaginalis PCR NOT DETECTED (Not Detect)
[2024-01-15 13:08] LABS: HPV mRNA E6/E7 Not Detected (Not Detected)
== END 2024-01-09 09:46 | disposition home or self-care (01) ==
LOC: HO.LAB 09:45
PROVIDERS: PCP Internal Medicine; Visit Provider Advanced Practice Midwife
DX: Z01.419 Encounter for gynecological examination (general) (routine) without abnormal findings (principal); F31.9 Bipolar disorder, unspecified; Z20.2 Contact with and (suspected) exposure to infections with a predominantly sexual mode of transmission
CPT/HCPCS: 0352U; 36415; 87491; 87591; 87624; 88175; 99395

== ENCOUNTER 2024-01-21 09:45 | Outpatient (AMB) | payer OTHER, SELFPAY ==
--- NOTE | 2024-01-21 09:49 | MHC.OFFVIS ---
Vital Signs 01/21/24 09:51 Height 4 ft 11 in Weight 131 lb 13.383 oz BMI 26.6 BP 118/70 Blood Pressure Location Rt brachial Position Sitting Pulse 74 Pulse Source Pulse Oximeter Pulse Oximetry (%) 100 Oxygen Delivery Method Room Air Intake Visit Reasons: 2 month f/u gerd ibs Intake Note: Samm presents in office today for a scheduled 2 mos FUV. CC; Pt was rx'd omeprazole at their last visit. No lab orders were placed. Pt reports that they have been taking the omeprazole PRN since their last visit. Pt states that it seems to be working OK. 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 Pt reports that they seem to be doing OK otherwise. No new concerns or sx. 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 HPI HPI 2 month f/u gerd ibs: Details: LAST VISIT: Right upper quadrant abdominal pain History of jaundice Serum total bilirubin elevated Gilbert's disease GERD (gastroesophageal reflux disease) Biliary and gallbladder disorder History of colitis Plan Normal physical exam. No tenderness to abdomen, no guarding during exam. Patient will start taking Citrucel to help her bulk stools. Patient will also try to change her diet. Low FODMAP diet discussed with patient. List of food recommended as well as list of food to avoid given to patient. Occasional postprandial acid reflux without dyspepsia, dysphagia or odynophagia. Patient will start taking omeprazole daily for short treatment to see if any improvement. Patient will call if her symptoms will continue. Patient will return in 2 months, sooner on as needed basis. If patient continues with symptoms we will send her for upper endoscopy. She is agreeable to this plan and verbalizes understanding of instructions. She was given the opportunity to ask questions and all questions answered. ? Thank you for allowing me to participate in her care Medications New methylcellulose (laxative) (Citrucel) take it with full glass of water 500 mg PO DAILY 30 tabs 2RF K59.00 omeprazole 20 mg PO DAILY 30 caps 3RF K21.9 TODAY'S VISIT Patient is here today for follow-up. Patient reports that she has been feeling quite well. Denies any abdominal pain or discomfort. Reports that she is moving her bowels better. Changed her diet. Occasionally taking omeprazole and her symptoms of acid reflux for the most part are suppressed. Patient denies knee abdominal bloating. Patient denies melena, hematochezia, unintentional weight loss or ribbon like stools. Patient denies any dyspepsia, dysphagia or odynophagia. Liver enzymes normal, all blood work reviewed and normal. Patient reports that she changed her diet quite a bit. She continues to eat sweets. High triglycerides normal cholesterol and LDL PFSH Medical History Lumbar back pain with radiculopathy affecting right lower extremity ADHD Serum total bilirubin elevated Pilonidal abscess Positive hepatitis C antibody test Food allergy, peanut Lumbago with sciatica, right side Anxiety and depression Bipolar 1 disorder Insomnia Seizures Surgical History History of excision of pilonidal cyst (07/03/22) History of wisdom tooth extraction H/O removal of cyst Family History Father PTSD (post-traumatic stress disorder) High cholesterol Mental health disorder Mother Loss of hearing Social History Household Members: Family Both parents involved: Yes Housing: House Are you a primary caregiver services home to a significant other at home: No Do you presently have visiting nurse or other home services: No Alcohol intake: never Patient Tobacco Use Status: Never used Tobacco e-Cigarette/Vaping Use: Never Used Substance Use Type: Marijuana Trauma History: none voiced Special beatriz needs: No Agree to transfusion: Yes service: No Current occupational status: employed Cognitive needs: No Hearing needs: No Vision needs: Yes Female Reproductive History Menstrual Age of Menarche: 10 Review of Systems Const Denies weight gain and Denies weight loss ENT Reports no additional complaints, Denies dysphagia and Denies odynophagia Card Reports no additional complaints Resp Reports no additional complaints GI Denies abdominal pain, Denies belching, Denies melena, Denies bloating, Denies change in bowel habits, Denies dysphagia, Denies excessive flatus, Denies dyspepsia, Denies heartburn, Denies diarrhea, Denies loose stools, Denies nausea, Denies odynophagia and Denies vomiting Reports no additional complaints Musc Reports no additional complaints Neuro Reports no additional complaints Psych Reports no additional complaints Endo Reports no additional complaints Physical Exam Vital Signs: Last Vital Signs Pulse 74 01/21/24 09:51 BP 118/70 01/21/24 09:51 Pulse Ox 100 01/21/24 09:51 Oxygen Delivery Method Room Air 01/21/24 09:51 BMI result Body Mass Index 26.6 Const General: healthy appearing, no acute distress and well developed Nutritional Appearance: well nourished Orientation/consciousness: patient oriented x3 Resp Effort & Inspection: normal respiratory effort, able to speak in complete sentences, no tracheal deviation and symmetric chest movement Auscultation: clear to auscultation bilaterally Cardio Rate: regular rate GI Inspection: Yes normal to inspection and No distended Palpation (GI): Soft to palpation, not firm, nontender and No hepatosplenomegaly present Auscultation: normal bowel sounds General: Yes no CVA tenderness Back/Spine/Pelvis Back: no CVA tenderness Skin General skin exam: elasticity normal, turgor normal and dry skin Neuro General: patient oriented x3 Psych Appearance: grossly normal Mental Status: mental status grossly normal Assessment & Plan Assessment & Plan (1) Hepatomegaly: Code(s): R16.0 - Hepatomegaly, not elsewhere classified (2) History of jaundice: Code(s): Z87.898 - Personal history of other specified conditions Category: Medical (3) Serum total bilirubin elevated: Code(s): R17 - Unspecified jaundice Category: Medical (4) Gilbert's disease: Code(s): E80.4 - Gilbert syndrome (5) GERD (gastroesophageal reflux disease): Code(s): K21.9 - Gastro-esophageal reflux disease without esophagitis Qualifiers: Esophagitis presence: esophagitis presence not specified Qualified Code(s): K21.9 - Gastro-esophageal reflux disease without esophagitis Plan Continue avoiding dietary triggers and late night snacking. Staying upright for minimum 3 hours after meals discussed with patient. Continue low-fat low carb diet. Focus on eating more protein. Patient will follow-up in 1 year so we can re-evaluate. Patient will do ultrasound with elastography in 6 months. Patient will call our office if she will have any GI concerning symptoms. Patient is agreeable to this plan and verbalizes understanding of instructions. She was given the opportunity to ask questions and all questions answered. Thank you for allowing me to participate in her care Orders: Orders US abdomen estrella w elastography Today R74.01 - Elevation of levels of liver transaminase levels Coding Level of Care Code Est Pt Level 3 (33668) Diagnoses Hepatomegaly R16.0 History of jaundice Z87.898 Serum total bilirubin elevated R17 Gilbert's disease E80.4 Gastroesophageal reflux disease, unspecified whether esophagitis present K21.9 Esophagitis presence: esophagitis presence not specified Time Spent (min) 25 Comment 15 minutes spent with patient and additional 10 minutes spent reviewing her records
[2024-01-21 09:51] VITALS: BP 118/70; PULSE 74; O2SAT 100; BMI 26.6
== END 2024-01-21 10:05 | disposition home or self-care (01) ==
PROVIDERS: PCP Internal Medicine; Visit Provider Nurse Practitioner Family
DX: R16.0 Hepatomegaly, not elsewhere classified (principal); Z87.898 Personal history of other specified conditions; R17 Unspecified jaundice; E80.4 Gilbert syndrome; K21.9 Gastro-esophageal reflux disease without esophagitis
CPT/HCPCS: 99213

== ENCOUNTER → 2024-01-21 09:45 | Outpatient (BNVA) | payer OTHER, SELFPAY | PROVIDERS: PCP Internal Medicine; Visit Provider Nurse Practitioner Family | DX: K21.9 Gastro-esophageal reflux disease without esophagitis (principal); R16.0 Hepatomegaly, not elsewhere classified; R17 Unspecified jaundice; E80.4 Gilbert syndrome; Z87.898 Personal history of other specified conditions | CPT/HCPCS: 99212 ==

== ENCOUNTER 2024-01-30 09:24 | Outpatient (REF) | payer OTHER, SELFPAY ==
--- NOTE | ~2024-01-30 | US_ITS ---
EXAMINATION: US ABDOMEN LIMITED WITH LIVER ELASTOGRAPHY CLINICAL INFORMATION: Elevated transaminase and total bilirubin COMPARISON: CT abdomen and pelvis 11/05/2023 TECHNIQUE: Real-time imaging of the abdominal viscera. Noninvasive ultrasound liver fibrosis assessment is performed using Shirin ElastPQ point quantification shear wave elastography (pSWE) with a 5 MHz transducer. Multiple elastography samples are obtained. FINDINGS: PANCREAS: . The visualized pancreatic head and body are normal in appearance. The remainder of the pancreas is obscured from visualization by the overlying bowel gas. LIVER: . The liver demonstrates normal size and contour but with increased echogenicity suggesting steatosis. No focal lesion or intrahepatic biliary duct dilatation. The right lobe measures 16.4 cm in length. The left lobe measures 9.8 cm in length. Portal flow is hepatopedal Shear wave elastography provides a median stiffness of 1.8 m/s (reference: normal median stiffness is 0.81 - 1.22 m/s). The IQR/median stiffness to assess sampling precision is 0.08 (reference: optimal IQR/median stiffness is under 0.3). GALLBLADDER: Normal. The gallbladder is physiologically distended without evidence of stones, sludge, polyps, wall thickening or pericholecystic fluid. COMMON BILE DUCT: Normal in caliber measuring 0.2 cm in diameter. RIGHT KIDNEY: Normal. No hydronephrosis. No renal calculi or focal parenchymal lesions. The kidney measures 10.1 cm in maximum dimension. FREE FLUID: None. US/US abdomen estrella w elastography IMPRESSION: 1. Echogenic liver 2. Elastography: Liver elastography measurements are consistent with a moderate risk for clinically significant liver fibrosis (METAVIR Stage F2-F3). Electronically signed by: Christopher Sharp MD 02/13/2024 07:08 PM EDT
== END 2024-01-30 09:25 | disposition home or self-care (01) ==
LOC: HO.US 09:24
PROVIDERS: PCP Internal Medicine; Visit Provider Nurse Practitioner Family
DX: R74.01 Elevation of levels of liver transaminase levels (principal)
CPT/HCPCS: 76705; 76981

== ENCOUNTER 2024-02-04 10:34 | Outpatient (AMB) | payer OTHER, SELFPAY ==
--- NOTE | 2024-02-04 10:46 | AM.OFFWIN_ITS ---
Intake Vital Signs 02/04/24 10:47 Height 4 ft 11 in Weight 129 lb BMI 26.1 BP 110/70 Blood Pressure Location Rt brachial Position Sitting Pulse 92 Pulse Source Pulse Oximeter Pulse Oximetry (%) 100 Oxygen Delivery Method Room Air Intake Visit Reasons: EP Left hand pain,all the way up arm/shoulder Intake Note: Patient here for left hand discomfort that started about 1 month ago and has progressed and gets radiating pain that travels up to the shoulder and neck, has had some numbness. Patient Tobacco Use Status: Never used Tobacco Allergies amoxicillin [AMOXICILLIN] Allergy (Severe, Verified 02/04/24 10:49) Hives cefadroxil [Cefadroxil] Allergy (Severe, Verified 02/04/24 10:49) anaphylaxis peanut [PEANUT] Allergy (Severe, Verified 02/04/24 10:49) LIP, TONGUE SWELLING. Do you need a note to return to daycare/school/sports/work: No HPI HPI Comments History of Present Illness Details Patient is a 23-year-old female complaining of left hand pain and numbness and tingling. She says the pain starts at the base of her thumb and then shoots up her rest and sometimes goes all the way up to her shoulder. 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 She has not tried to take any medications to make it feel better. Using it makes it worse. [facility] Medical History Lumbar back pain with radiculopathy affecting right lower extremity ADHD Serum total bilirubin elevated Pilonidal abscess Positive hepatitis C antibody test Food allergy, peanut Lumbago with sciatica, right side Anxiety and depression Bipolar 1 disorder Insomnia Seizures Surgical History History of excision of pilonidal cyst (07/03/22) History of wisdom tooth extraction H/O removal of cyst Family History Father PTSD (post-traumatic stress disorder) High cholesterol Mental health disorder Mother Loss of hearing Social History (Reviewed 01/21/24 @ 09:55 by SHARON Waller Household Members: Family Both parents involved: Yes Housing: House Are you a primary urgent care nurse practitioner to a significant other at home: No Do you presently have visiting nurse or other home services: No Alcohol intake: never Patient Tobacco Use Status: Never used Tobacco e-Cigarette/Vaping Use: Never Used Substance Use Type: Marijuana Trauma History: none voiced Special beatriz needs: No Agree to transfusion: Yes service: No Current occupational status: employed Cognitive needs: No Hearing needs: No Vision needs: Yes Female Reproductive History Menstrual Age of Menarche: 10 Review of Systems Const All systems reviewed & are unremarkable except as noted in HPI and below Physical Exam Vital Signs: Last Vital Signs Pulse 92 02/04/24 10:47 BP 110/70 02/04/24 10:47 Pulse Ox 100 02/04/24 10:47 Oxygen Delivery Method Room Air 02/04/24 10:47 BMI result Body Mass Index 26.1 Const General: cooperative, healthy appearing, comfortable and no acute distress Orientation/consciousness: patient oriented x3 Limitations: no limitations HEENT Head: Yes normal to inspection Resp Effort & Inspection: normal respiratory effort and able to speak in complete sentences Neuro General: patient oriented x3 Extrem Other: Positive Phalen's, positive Tinel's test. General: Yes normal to inspection, Yes full ROM, Yes capillary refill normal and Yes normal exam except as noted Assessment & Plan Assessment & Plan (1) Carpal tunnel syndrome of left wrist: Code(s): G56.02 - Carpal tunnel syndrome, left upper limb Plan: Gave patient thumb spica brace for left hand and recommended she use it nightly and is often as she can during the day. Recommend she rest the hand and wrist and use Aleve as needed. Recommended she follow up with her PCP if pain continues. Plan see above Coding Level of Care Code New Pt Level 3 (66047) Diagnoses Carpal tunnel syndrome of left wrist G56.02
[2024-02-04 10:47] VITALS: BP 110/70; PULSE 92; O2SAT 100; BMI 26.1
== END 2024-02-04 11:16 | disposition home or self-care (01) ==
PROVIDERS: PCP Internal Medicine; Visit Provider Physician Assistant
DX: G56.02 Carpal tunnel syndrome, left upper limb (principal)
CPT/HCPCS: 99203

== ENCOUNTER 2024-02-12 10:46 | Outpatient (AMB) | payer OTHER, SELFPAY ==
--- NOTE | 2024-02-12 11:15 | MHC.PC.OV ---
Vital Signs 02/12/24 11:19 Height 4 ft 11 in Weight 129 lb 8 oz BMI 26.2 BP 116/80 Blood Pressure Location Lt brachial Position Sitting Pulse 106 H Pulse Source Pulse Oximeter Pulse Oximetry (%) 100 Oxygen Delivery Method Room Air Intake Visit Reasons: f/u walkin ? carpal tunnel Intake Note: Pt presents to the office today for a follow up walk in visit for questioning carpal tunnel. Pt states her left hand started bothering her for a few months on and off and was given a brace to wear at night which she states is helpful. Pt states she does get numbness and tingling in her fingers occasionally. Allergies amoxicillin [AMOXICILLIN] Allergy (Severe, Verified 02/12/24 11:55) Hives cefadroxil [Cefadroxil] Allergy (Severe, Verified 02/12/24 11:55) anaphylaxis peanut [PEANUT] Allergy (Severe, Verified 02/12/24 11:55) LIP, TONGUE SWELLING. Medication List - Last Reconciled 02/12/24 by Bindu Ron MD aripiprazole 5 mg PO DAILY dextroamphetamine-amphetamine 5 mg ER 1 cap PO QAM fluticasone propionate 50 mcg/actuation (Allergy Relief (fluticasone)) 1 spray intranasal DAILY omeprazole 20 mg PO DAILY propranolol 10 mg PO BID Tobacco use date assessed: 12/09/23 Dental Screening Dental Screen Date: 12/09/23 HPI f/u walkin ? carpal tunnel HPI Details 23-year-old femal e here today for f ollow-up after rec ent visit at [facility] comp laining of left ferguson nd pain and numbne ss and tingling. It starts at the b ase of her thumb a nd then shoots up her rest and somet imes goes all the way up to her shou lder. She states it is worse when s he does applied researcher such as mop ping and sweeping or picking up her child. 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 She was given a wrist brace to we ar on her left gonzales d, at night, and p rescribed leave wh ich affords only t emporary relief. She also has se asonal and environ mental allergies, needs a refill on her fluticasone na manish spray [facility] Medical History Numbness and tingling in left hand Lumbar back pain with radiculopathy affecting right lower extremity ADHD Serum total bilirubin elevated Pilonidal abscess Positive hepatitis C antibody test Food allergy, peanut Lumbago with sciatica, right side Anxiety and depression Bipolar 1 disorder Insomnia Seizures Surgical History History of excision of pilonidal cyst (07/03/22) History of wisdom tooth extraction H/O removal of cyst Family History Father PTSD (post-traumatic stress disorder) High cholesterol Mental health disorder Mother Loss of hearing Social History Household Members: Family Both parents involved: Yes Housing: House Are you a primary healthcare business analyst to a significant other at home: No Do you presently have visiting nurse or other home services: No Alcohol intake: never Patient Tobacco Use Status: Never used Tobacco e-Cigarette/Vaping Use: Never Used Substance Use Type: Marijuana Trauma History: none voiced Special beatriz needs: No Agree to transfusion: Yes service: No Current occupational status: employed Cognitive needs: No Hearing needs: No Vision needs: Yes Female Reproductive History Menstrual Age of Menarche: 10 Questionnaire PHQ-9 Over the last 2 weeks, how often have you been bothered by any of the following problems? 1. Little interest or pleasure in doing things: not at all 2. Feeling down, depressed, or hopeless: not at all 3. Trouble falling or staying asleep, or sleeping too much: not at all 4. Feeling tired or having little energy: not at all 5. Poor appetite or overeating: not at all 6. Feeling bad about yourself - or that you are a failure or have let yourself or your family down: not at all 7. Trouble concentrating on things, such as reading the newspaper or watching television: not at all 8. Moving or speaking so slowly that other people could have noticed. Or the opposite - being so fidgety or restless that you have been moving around a lot more than usual: not at all 9. Thoughts that you would be better off or of hurting yourself in some way: not at all Total score: 0 Depression Screening Interpretation: Negative Depression Screening Done: Yes 95310 - PHQ-9 Billing: Yes Source: Developed by Drs. Kodi Ferreira, Sumaya Mckoy, Inocente Melara and colleagues, with an educational hayden from [employer]. Thrive Questionnaire Date Thrive assessed: 02/09/24 I am a: Patient What is your living situation today?: I have a steady place to live Within the past 12 months, did the food you bought not last and you didn't have the money to get more?: Never true Within the past 12 months, did you worry whether your food would run out before you got money to buy more?: Never true Do you have trouble paying for medicines?: No Do you have trouble getting transportation to medical appointments?: No Do you have trouble paying your heating and electricity bill?: No Do you have trouble taking care of your child, family member or friend?: No Do you have trouble with day-to-day activities such as bathing, preparing meals, shopping, managing finances, etc.?: No Are you currently unemployed and looking for a job?: Yes Are you interested in more education?: Yes Please select the resources that you would like help with: None Currently or been in a relationship where the following occur: No concerns reported THRIVE Score: 0 AUDIT C Alcohol Use Questionnaire (AUDIT-C) 1. How often do you have a drink containing alcohol?: Never 3. How often do you have six or more drinks on one occasion?: Never Total Score: 0 ALEXANDRE-7 AMB Questionnaire ALEXANDRE-7 Date ALEXANDRE - 7 assessed: 10/11/23 Feeling nervous, anxious, or on edge: 0 = Not at all Not being able to stop or control worryin = Not at all Worrying too much about different things: 0 = Not at all Trouble relaxin = Not at all Being so restless that it is hard to sit still: 0 = Not at all Becoming easily annoyed or irritable: 0 = Not at all Feeling afraid as if something awful might happen: 0 = Not at all Total ALEXANDRE-7 score (0-4 normal; 5-9 mild; 10-14 moderate; 15-21 severe): 0 Source: Developed by Drs. Kodi Ferreira, Sumaya Mckoy, Inocente Melara and colleagues, with an educational hayden from [employer]. Review of Systems Const All systems reviewed & are unremarkable except as noted in HPI and below Denies headache(s) ENT Denies headache(s), Reports nasal congestion, Denies nose pain, Denies sinus pain and Denies throat swelling Neuro Denies Abnormal speech present, Denies headache(s) and Denies Sensory deficit (Neuro) Aller/Immun Denies throat swelling Physical exam (Primary Care) Vital Signs: Last Vital Signs Pulse 106 H 02/12/24 11:19 BP 116/80 02/12/24 11:19 Pulse Ox 100 02/12/24 11:19 Oxygen Delivery Method Room Air 02/12/24 11:19 BMI result Body Mass Index 26.2 Tobacco/Smoking Status: Tobacco use Status Tobacco use date assessed 12/09/23 02/12/24 11:17 Patient Tobacco Use Status Never used Tobacco 02/12/24 11:17 e-Cigarette/Vaping Use Never Used 02/12/24 11:17 PHQ-9: PHQ-9 Score PHQ-9: Total score 0 02/12/24 11:56 Depression Screening Interpretation: Negative Thrive Assessment: Date of Thrive Assessment Date Thrive assessed 02/09/24 02/12/24 11:17 Currently or been in a relationship where the following occur: No concerns reported Const General: comfortable, no acute distress and alert Nutritional Appearance: average body habitus Orientation/consciousness: patient [facility]3 [facility] General nose exam: Normal external nose present and Abnormal mucous membranes and turbinates present boggy and pale Face and sinus: Yes sinuses nontender Neck Neck: Yes full ROM, Yes no lymphadenopathy and Yes supple Resp Auscultation: clear to auscultation bilaterally Cardio Rate: regular rate Rhythm: regular rhythm Heart sounds: S1 normal heart sound present and S2 normal heart sound present Back/Spine/Pelvis Back: No back tenderness Skin Other: Tattoos on right arm General skin exam: no rashes or lesions noted Neuro General: patient oriented x3 Speech: No Abnormal speech present Sensory Exam: No Sensory deficit (Neuro) Extrem Other: Positive Phalen's and Tinel sign on left General: Yes full ROM, Yes no joint enlargement, Yes no clubbing, cyanosis or edema and Yes normal gait Assessment and Plan Assessment & Plan (1) Numbness and tingling in left hand: Code(s): R20.0 - Anesthesia of skin; R20.2 - Paresthesia of skin (2) Carpal tunnel syndrome of left wrist: Code(s): G56.02 - Carpal tunnel syndrome, left upper limb (3) Environmental allergies: Code(s): Z91.09 - Other allergy status, other than to drugs and biological substances Plan: Refill sent for fluticasone nasal spray, to use as directed. Plan Continue wearing wrist brace on left hand at night, ordered nerve conduction study and referred to orthopedics for further evaluation management as a leave taken [id number] affords only temporary relief. Orders: Orders NE nerve conduction velocity 02/12/24 G56.02 - Carpal tunnel syndrome, left upper limb, R20.0 - Anesthesia of skin, R20.2 - Paresthesia of skin Referrals Orthopedics Referral G56.02 - Carpal tunnel syndrome, left upper limb, R20.0 - Anesthesia of skin, R20.2 - Paresthesia of skin Medications: New fluticasone propionate 50 mcg/actuation (Allergy Relief (fluticasone)) administer into each nostril 1 spray intranasal DAILY 16 grams 0RF Coding Level of Care Code Est Pt Level 4 (07330) Diagnoses Numbness and tingling in left hand R20.0; R20.2 Carpal tunnel syndrome of left wrist G56.02 Environmental allergies Z91.09
[2024-02-12 11:19] VITALS: BP 116/80; PULSE 106; O2SAT 100; BMI 26.2
== END 2024-02-12 11:56 | disposition home or self-care (01) ==
PROVIDERS: PCP Internal Medicine; Visit Provider Internal Medicine
DX: R20.0 Anesthesia of skin (principal); R20.2 Paresthesia of skin; G56.02 Carpal tunnel syndrome, left upper limb; Z91.09 Other allergy status, other than to drugs and biological substances
CPT/HCPCS: 99214

== ENCOUNTER 2024-02-24 13:47 | Outpatient (REF) | payer OTHER, SELFPAY ==
[2024-02-26 04:49] LABS: CT PCR NOT DETECTED (Not Detect.); NG PCR NOT DETECTED (Not Detect.)
[2024-02-26 13:00] LABS: Bacterial Vaginosis PCR NEGATIVE (Negative); Candida Group PCR DETECTED (Not Detect); Candida glab krusei PCR NOT DETECTED (Not Detect); Trichomonas vaginalis PCR NOT DETECTED (Not Detect)
== END 2024-02-24 13:48 | disposition home or self-care (01) ==
LOC: HO.LAB 13:47
PROVIDERS: PCP Internal Medicine; Visit Provider Advanced Practice Midwife
DX: N89.8 Other specified noninflammatory disorders of vagina (principal); F31.9 Bipolar disorder, unspecified; F41.9 Anxiety disorder, unspecified; F43.10 Post-traumatic stress disorder, unspecified; Z30.09 Encounter for other general counseling and advice on contraception
CPT/HCPCS: 0352U; 87086; 87491; 87591; 99212

== ENCOUNTER 2024-02-24 13:47 | Outpatient (AMB) | payer OTHER, SELFPAY ==
[2024-02-24 14:04] VITALS: BP 120/70; BMI 26.1
--- NOTE | 2024-02-24 14:04 | A.OFFVIS_ITS ---
Vital Signs 02/24/24 14:04 Height 4 ft 11 in Weight 129 lb BMI 26.1 BP 120/70 Intake Visit Reasons: Vaginal discharge Information Interpreted: clinical only Dedicated Driver: Dedicated Driver Present Allergies amoxicillin [AMOXICILLIN] Allergy (Severe, Verified 02/24/24 14:06) Hives cefadroxil [Cefadroxil] Allergy (Severe, Verified 02/24/24 14:06) anaphylaxis peanut [PEANUT] Allergy (Severe, Verified 02/24/24 14:06) LIP, TONGUE SWELLING. Medication List - Last Reconciled 02/24/24 by Cintia Liz CNM aripiprazole 5 mg PO DAILY dextroamphetamine-amphetamine 5 mg ER 1 cap PO QAM omeprazole 20 mg PO DAILY propranolol 10 mg PO BID Is last menstrual period known: Yes Last menstrual period: 01/26/24 HPI HPI Vaginal discharge: Details: See if she has a yeast infection. She was having some burning when the urine came out and also feeling like she could not hold her P on Saturday when she was checking choice. Also sometimes when she gets up in the morning she has to race to the bathroom. She does not have any itching per se but she did note is white discharge and so she thought that was the yeast and yesterday it was chunky. In terms of wondering if she has a UTI she has the symptoms she described as above . She currently is using pull out method for control. She trusts her partner so isn't concerned about STIs. When I asked her she was open to if she got she sort of said it would be what it would be, and then she did burst into tears recounting how she had been traumatized in her son's and she we told the story she had told me before that I had for gotten about discovering that he had a heart defect nursing home through the and how frightening it all was and she could not hold him right after she delivered in [place] he is fine now he is 2 years old. Additionally she has been through a lot w the father of the baby and they have custody arrangement. She is with a different partner now and she has told him she would like to wait five or 6 years she did not like how any of the other hormonal methods made her feel (pills and the Nexplanon) and they messed with (her) bipolar . She does have a therapist and she has a psychiatrist that manages the meds she is on and she feels she is good right now she is premenstrual and expecting her period any day now. [facility] Medical History Numbness and tingling in left hand Lumbar back pain with radiculopathy affecting right lower extremity ADHD Serum total bilirubin elevated Pilonidal abscess Positive hepatitis C antibody test Food allergy, peanut Lumbago with sciatica, right side Anxiety and depression Bipolar 1 disorder Insomnia Seizures Surgical History History of excision of pilonidal cyst (07/03/22) History of wisdom tooth extraction H/O removal of cyst Family History Father PTSD (post-traumatic stress disorder) High cholesterol Mental health disorder Mother Loss of hearing Social History Household Members: Family Both parents involved: Yes Housing: House Are you a primary post acute care registered nurse to a significant other at home: No Do you presently have visiting nurse or other home services: No Alcohol intake: never Patient Tobacco Use Status: Never used Tobacco e-Cigarette/Vaping Use: Never Used Substance Use Type: Marijuana Trauma History: none voiced Special beatriz needs: No Agree to transfusion: Yes service: No Current occupational status: employed Cognitive needs: No Hearing needs: No Vision needs: Yes Female Reproductive History Menstrual Age of Menarche: 10 Duration of menses: 3-5 days Date of last menstrual period: 01/26/24 Total pregnancies: 1 Full term: 1 Physical Exam Vital Signs: Last Vital Signs BP 120/70 02/24/24 14:04 BMI result Body Mass Index 26.1 Other: No vulvar inflammation that would be consistent with a yeast infection normal scant clear and white discharge. Cervix multiparous. External Female Exam: normal external appearance and normal appearance of the urethra Speculum Exam - Vagina: normal appearance of the vagina and normal vaginal discharge Speculum Exam - Cervix: normal appearance of the cervix and Cervical os closed Assessment & Plan Assessment & Plan (1) control counseling: Code(s): Z30.09 - Encounter for other general counseling and advice on contraception Category: Medical (2) Vaginal discharge: Code(s): N89.8 - Other specified noninflammatory disorders of vagina Category: Medical (3) Bipolar 1 disorder: Comment: Patient self identifies today. Additionally she shared that she has been traumatized from the with her son (heart defect) Code(s): F31.9 - Bipolar disorder, unspecified Category: Medical (4) Anxiety and depression: Code(s): F41.9 - Anxiety disorder, unspecified; F32.9 - Major depressive disorder, single episode, unspecified Category: Medical (5) Post traumatic stress disorder (PTSD): Comment: From challenging and scary with her 2-year-old son who had a major cardiac defect discovered in the . (He is fine now) Code(s): F43.10 - Post-traumatic stress disorder, unspecified Category: Medical Plan In terms of the vaginal discharge appears within normal limits today await the testing but given that she feels she gets yeast infections often I am sending a prescription for Monistat cream that she can use when she needs to discussed prevention measures which she is being attentive to and she is very careful about cotton underwear air night etc.. We will send it clean-catch urine to see if she might have a UTI I recommend she call in 3 days to find out the results she does have trouble with the portal We would obviously call her for anything positive. In terms of control and openness to and her traumatic experience I suggested that she find a quiet time to figure out whether not she wants to g et now and whether not condoms could be the answer for her since she does not want hormones. She is not interested in any other method of control at this time either. In terms of revisiting the trauma that and anticipating a future discussed positive measures she could do if she did discovered she was in terms of initiating care at [facility] right away and letting them know what she is scared of and knowing that she would get the early testing and ultrasounds as appropriate and early cardiac ultrasound as they see fit and when it comes time to deliver to have discussions with whoever is with her so everyone knows what her anxieties are. Medications: New miconazole nitrate 2% (Miconazole-7) 1 appful vaginal BEDTIME 7 days 45 grams 1RF Coding Level of Care Code Est Pt Level 3 (05896) Diagnoses control counseling Z30.09 Vaginal discharge N89.8 Bipolar 1 disorder F31.9 Anxiety and depression F41.9; F32.9 Post traumatic stress disorder (PTSD) F43.10
== END 2024-02-24 15:33 | disposition home or self-care (01) ==
PROVIDERS: PCP Internal Medicine; Visit Provider Advanced Practice Midwife
DX: N89.8 Other specified noninflammatory disorders of vagina (principal); Z30.09 Encounter for other general counseling and advice on contraception; F31.9 Bipolar disorder, unspecified; F41.9 Anxiety disorder, unspecified
CPT/HCPCS: 99213

== ENCOUNTER 2024-03-10 10:00 | Outpatient (REF) | payer OTHER, SELFPAY ==
--- NOTE | 2024-03-10 10:04 | EMG_ITS ---
Left median and ulnar motor and sensory studies were performed. Left radial, sensory, and median and lateral antecubital brachial sensory studies were performed and needle examination was performed. IMPRESSION: Mild left ulnar neuropathy across cubital tunnel. MD BLAIRE Jimenez/JACKSON / [phone]
== END 2024-03-10 10:01 | disposition home or self-care (01) ==
LOC: HO.NEURO 10:00
PROVIDERS: PCP Internal Medicine; Visit Provider Internal Medicine
DX: G56.02 Carpal tunnel syndrome, left upper limb (principal); R20.0 Anesthesia of skin; R20.2 Paresthesia of skin
CPT/HCPCS: 95886; 95910

== ENCOUNTER 2024-03-24 09:16 | Outpatient (AMB) | payer OTHER, SELFPAY ==
--- NOTE | 2024-03-24 09:19 | MHC.OFFVIS ---
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 She also shares it is difficulty to carry her toddler due to the numbness and tingling. Denies finger locking. 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 She is using a hand brace to sleep which she finds is helpful. Denies any prior injuries or surgeries. EMG done 03/10/24. Allergies amoxicillin [AMOXICILLIN] Allergy (Severe, Verified 03/24/24 09:23) Hives cefadroxil [Cefadroxil] Allergy (Severe, Verified 03/24/24 09:23) anaphylaxis peanut [PEANUT] Allergy (Severe, Verified 03/24/24 09:23) LIP, TONGUE SWELLING. 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 The patient reports that there was a particular incident where she was attempting to lift something and noticed that she was experiencing pain, numbness, and tingling in these fingers. Patient reports that this numbness and tingling has continued, and is intermittent, but daily, and worse at night. Patient states she has been wearing a carpal tunnel brace, with minimal relief. No other acute complaints or concerns at this time. [facility]ENDING SALE TO [facility] Medical History Numbness and tingling in left hand Lumbar back pain with radiculopathy affecting right lower extremity ADHD Serum total bilirubin elevated Pilonidal abscess Positive hepatitis C antibody test Food allergy, peanut Lumbago with sciatica, right side Anxiety and depression Bipolar 1 disorder Insomnia Seizures Surgical History History of excision of pilonidal cyst (07/03/22) History of wisdom tooth extraction H/O removal of cyst Family History Father PTSD (post-traumatic stress disorder) High cholesterol Mental health disorder Mother Loss of hearing Social History Household Members: Family Both parents involved: Yes Housing: House Are you a primary transitional care manager to a significant other at home: No Do you presently have visiting nurse or other home services: No Alcohol intake: never Patient Tobacco Use Status: Never used Tobacco e-Cigarette/Vaping Use: Never Used Substance Use Type: Marijuana Trauma History: none voiced Special beatriz needs: No Agree to transfusion: Yes service: No Current occupational status: unemployed Current occupation: rt handed Cognitive needs: No Hearing needs: No Vision needs: Yes Female Reproductive History Menstrual Age of Menarche: 10 Review of Systems Const All systems reviewed & are unremarkable except as noted in HPI and below Physical Exam Vital Signs: BMI result Body Mass Index 26.1 Extrem Other: Neuro: Decreased sensation in the ulnar nerve distribution of the left hand. Normal sensation to all other digits in the left hand today. Normal sensation in the tips of all digits of the right hand today. No thenar or intrinsic wasting. Good APB muscle firing and good finger cross. Vascular: Capillary refill brisk. ROM: Patient can make a fist and extend all their digits. Skin: No lacerations or abrasions noted. General: No ecchymosis. No erythema or evidence of infection. No snapping of the ulnar nerve over the medial epicondyle of the left elbow with flexion Results Reviewed Results Reviewed: IMPRESSION: Mild left ulnar neuropathy across cubital tunnel. MD BLAIRE Jimenez/MODL Assessment & Plan Assessment & Plan (1) Cubital tunnel syndrome on left: Code(s): G56.22 - Lesion of ulnar nerve, left upper limb Category: Medical Plan 1. Left cubital tunnel syndrome Symptoms intermittent, daily, worse at night I educated the patient about the condition. I discussed both operative and nonoperative treatment options. The patient would like to proceed with surgery. The risks and benefits of operative treatment were discussed with the patient and the patient wishes to proceed with surgery. These risks include, but are not limited to, risk of damage to blood vessels, nerves, tendons, infection, recurrence, incomplete relief of preoperative symptoms, persistent pain, possible need for further surgery, and the risks associated with regional blocks and/or anesthesia. Plan is to take the patient to the operating room at some point in the next few weeks for the following procedures: 1. Left cubital tunnel release under general anesthesia All of the preoperative paperwork including the consent was discussed today. All of the patient's questions were answered in the clinic today. The patient understands that they will be in contact with our surgical appliances salesperson to discuss scheduling their procedure. Patient denies diabetes, blood thinners, asthma, heart issues, lung issues, kidney issues, or current smoking. Coding Level of Care Code New Pt Level 4 (81887) Diagnoses Cubital tunnel syndrome on left G56.22
[2024-03-24 09:23] VITALS: BMI 26.1
== END 2024-03-24 10:09 | disposition home or self-care (01) ==
PROVIDERS: PCP Internal Medicine
DX: G56.22 Lesion of ulnar nerve, left upper limb (principal)
CPT/HCPCS: 99214

== ENCOUNTER → 2024-03-24 09:16 | Outpatient (BNVA) | payer OTHER, SELFPAY | PROVIDERS: PCP Internal Medicine | DX: G56.22 Lesion of ulnar nerve, left upper limb (principal) | CPT/HCPCS: 99212 ==

== ENCOUNTER 2024-05-30 01:34 | Emergency (ER) | payer OTHER, SELFPAY ==
[2024-05-30 01:43] VITALS: BP 112/64; PULSE 78; RESP 16; TEMP 36.9; O2SAT 100; BMI 26.3
[2024-05-30 02:11] LABS: IDNOW Serial# 6674DD1D; Strep A Nucleic Acid Negative (Negative)
[2024-05-30 02:39] LABS: Influenza A PCR NEGATIVE (Negative); Influenza B PCR NEGATIVE (Negative); Resp Syncy Virus RNA Qual PCR POSITIVE (Negative); SARS COV2 PCR INHOUSE NEGATIVE (Negative)
[2024-05-30 06:00] VITALS: BP 106/58; PULSE 98; RESP 18; TEMP 36.4; O2SAT 96
--- NOTE | 2024-05-30 06:25 | ED.GENADULT ---
HPI - General Adult General Chief complaint: Ear Problems Stated complaint: jaw, ear and neck pain Time Seen by Provider: 05/30/24 06:24 Source: patient Mode of arrival: ambulatory Limitations: no limitations History of Present Illness ED Provider: Andi HERNANDEZ narrative: patient is a 24-year-old female, 13 weeks gestation, LMP 02/28/24, EVERARDO 12/04/24 presenting to the emergency department with complaint of congestion cough, shortness of breath for the past week. Reports that yesterday she developed right ear pain which is radiating to her lateral neck. Has tried using [id number] ear drops without relief. Has taken Tylenol and ibuprofen also with little relief. Reports known exposure to RSV. Denies fevers. Denies hemoptysis, chest pain, palpitations. MD complaint: Right ear pain, shortness of breath Related Data Home Medications ?Medication ?Instructions ?Recorded ?Confirmed aripiprazole 5 mg tablet 5 mg PO DAILY 07/16/23 02/24/24 propranolol 10 mg tablet 10 mg PO BID 07/16/23 02/24/24 Previous Rx's ?Medication ?Instructions ?Recorded omeprazole 20 mg capsule,delayed 20 mg PO DAILY #30 caps 11/19/23 release azithromycin 250 mg tablet 250 mg PO DAILY 4 days #4 tabs 05/30/24 Allergies Allergy/AdvReac Type Severity Reaction Status Date / Time amoxicillin [AMOXICILLIN] Allergy Severe Hives Verified 05/30/24 01:45 cefadroxil [Cefadroxil] Allergy Severe anaphylaxis Verified 05/30/24 01:45 peanut [PEANUT] Allergy Severe LIP, Verified 05/30/24 01:45 TONGUE SWELLING. Review of Systems Review of Systems: as per HPI. Yes all other systems are reviewed and are negative Constitutional: Constitutional: Reports as per HPI [facility] Past Medical History Medical History Numbness and tingling in left hand Lumbar back pain with radiculopathy affecting right lower extremity ADHD Serum total bilirubin elevated Pilonidal abscess Positive hepatitis C antibody test Food allergy, peanut Lumbago with sciatica, right side Anxiety and depression Bipolar 1 disorder Insomnia Seizures Surgical History History of excision of pilonidal cyst (07/03/22) History of wisdom tooth extraction H/O removal of cyst Family History Family History Father PTSD (post-traumatic stress disorder) High cholesterol Mental health disorder Mother Loss of hearing Social History Social History Household Members: Family Housing: House Are you a primary customer care manager to a significant other at home: No Do you presently have visiting nurse or other home services: No Alcohol intake: never Patient Tobacco Use Status: Never used Tobacco Smoked in Last 30 Days: No e-Cigarette/Vaping Use: Never Used Use of substances other than those prescribed or required for medical reasons: No Substance Use Type: Marijuana Trauma History: none voiced Special beatriz needs: No Agree to transfusion: Yes Advance Directives: No Advance Directives Information Provided: Yes Do you have a plan to hurt others: No Plan Patient : Yes service: No Current occupational status: unemployed Current occupation: rt handed Cognitive needs: No Hearing needs: No Vision needs: Yes Physical Exam ED Vital Signs: Vital Signs - 24 hr 05/30/24 01:43 05/30/24 06:00 Temperature 98.5 F 97.6 F Pulse Rate 78 98 Respiratory Rate 16 18 Blood Pressure 112/64 106/58 L Pulse Oximetry 100 96 Oxygen Delivery Method Room Air Room Air BMI result Body Mass Index 26.3 Vital signs have been reviewed and appear to be correct. Blood pressure normal. Heart rate normal. Respiratory rate normal. Temperature normal. Oxygen saturation normal. Const General: cooperative, healthy appearing and no acute distress Orientation/consciousness: oriented to person, oriented to place, oriented to time and patient oriented x3 Limitations: no limitations HENMT Head: Yes normocephalic and Yes atraumatic Ears: external ears normal, TM normal on the left, EAC's normal, mastoids normal bilaterally, no periauricular adenopathy and TM abnormal wth effusion purulent on the right and erythematous on the right General nose exam: Normal external nose present Face and sinus: Yes face symmetric Mouth: oropharynx normal and moist mucous membranes Throat: Yes uvula midline Eyes Pupils: Equal, round and reactive pupils present Neck Neck: Yes normal visual inspection, Yes no lymphadenopathy and Yes supple Resp Effort & Inspection: normal respiratory effort and able to speak in complete sentences Auscultation: clear to auscultation bilaterally Cardio Rate: regular rate Rhythm: regular rhythm Heart sounds: S1 normal heart sound present and S2 normal heart sound present GI Palpation (GI): Soft to palpation and nontender Auscultation: normoactive bowel sounds General: Yes no CVA tenderness Back/Spine/Pelvis Back: no CVA tenderness Skin General skin exam: elasticity normal and turgor normal Neuro General: oriented to person, oriented to place, oriented to time, patient oriented x3, moves all extremities, no focal motor deficits and CN's II-XI intact bilaterally Cranial nerves: Yes Equal, round and reactive pupils present Cognition (Neuro): normal cognition Extrem General: Yes full ROM, Yes no pedal edema and Yes no calf tenderness Psych Mental Status: mental status grossly normal Affect: normal affect Thought process: Normal thought process present Medical Decision Making Medical Decision Making [facility] Narrative: patient is a 24-year-old female, 13 weeks gestation, LMP 02/28/24, [place] 12/04/24 presenting to the emergency department with complaint of congestion cough, shortness of breath for the past week. On exam patient is awake, A+Ox3, VS WNL, afebrile, normal neurological exam without focal deficits, physical exam findings as above. Given reported symptoms and physical exam findings, initial differential includes Viral illness, COVID, flu, RSV, otitis media, otitis externa. do not suspect mastoiditis. Viral serology positive for RSV. Physical exam findings consistent with AOM of right ear. Patient updated on results and all questions answered. Will treat with course of azithromycin as patient has amoxicillin allergy. Discussed with patient that she should not use ibuprofen during but that Tylenol is safe to use. Follow-up with PCP and OBGYN. Return precautions discussed at bedside. Patient verbalized understanding of and agreement plan. Differential Diagnosis Differential Diagnoses: The differential diagnosis associated with the presentation includes As per [facility]. Lab Data [facility] Lab Attestation statement: I reviewed the patient's lab results. As per [facility] Labs: Lab Results 05/30/24 Range/Units 01:55 Influenza Type A (PCR) NEGATIVE (Negative) Influenza Type B (PCR) NEGATIVE (Negative) RSV RNA Qual (PCR) POSITIVE A (Negative) SARS-CoV-2 RNA (RT-PCR) NEGATIVE (Negative) S. pyogenes GrpA GAMA Negative (Negative) External Record Review External record reviewed: Inpatient record, Office record and Outpatient record Prescription Management I considered prescription management with: Antibiotic Discharge Plan Discharge Clinical Impression: RSV infection Otitis media Qualifiers: Laterality: right Patient Disposition: Home, Self-Care Instructions: Respiratory Syncytial Virus (ED), Ear Infection (ED) Additional Instructions: You were evaluated in the emergency department today for ear pain. Your evaluation suggests that your pain is due to an ear infection. Please take your prescribed antibiotics as directed for the full course of the medication. You were medicated with the first dose in the ED today, take the next dose tomorrow, 05/31/24. you also tested positive for RSV which is a respiratory virus that will resolve on its own over time. Be sure to drink plenty of fluids and get plenty of rest. You can take 650 mg of Tylenol every 6 hours as needed for discomfort. DO NOT TAKE IBUPROFEN OR ANY OTHER NSAIDS SUCH NAPROXEN, ALEVE, ETC. DURING . Please follow up with your primary care provider within two days. Return to the emergency department if you experience hearing loss, discharge from your ear, headaches, fevers, recurrent vomiting, or any other concerning symptoms. Prescriptions: New azithromycin 250 mg tablet 250 mg PO DAILY 4 Days Qty: 4 0RF Rx Instructions: start on day 2 of therapy No Action propranolol 10 mg tablet 10 mg PO BID aripiprazole 5 mg tablet 5 mg PO DAILY omeprazole 20 mg capsule,delayed release(DR/EC) 20 mg PO DAILY Qty: 30 3RF Print Language: Italian
[2024-05-30] MEDS: Acetaminophen 325 MG TABLET 650 MG PO (07:12)
[2024-05-30] MEDS: Azithromycin 500 MG TABLET PO (07:12)
[2024-05-30 07:28] VITALS: BP 118/72; PULSE 98; RESP 17; TEMP 36.7
== END 2024-05-30 07:31 | disposition home or self-care (01) ==
PROVIDERS: Emergency Provider Emergency Medicine Emergency Medical Services; PCP Internal Medicine
DX: O98.511 Other viral diseases complicating pregnancy, first trimester (principal); H65.91 Unspecified nonsuppurative otitis media, right ear; B97.4 Respiratory syncytial virus as the cause of diseases classified elsewhere; R06.02 Shortness of breath; R05.9 Cough, unspecified; Z3A.13 13 weeks gestation of pregnancy; Z03.818 Encounter for observation for suspected exposure to other biological agents ruled out
CPT/HCPCS: 0241U; 87651; 99283; 99284

== ENCOUNTER 2024-07-06 09:07 | Outpatient (AMB) | payer OTHER, SELFPAY ==
[2024-07-06 10:00] VITALS: BP 118/72; PULSE 78; TEMP 36.6; O2SAT 97; BMI 26.3
--- NOTE | 2024-07-06 10:00 | AM.OFFWIN_ITS ---
Intake Vital Signs 3 07/06/24 10:00 Height 4 ft 11 in Weight 130 lb BMI 26.3 BP 118/72 Blood Pressure Location Lt brachial Position Sitting Pulse 78 Pulse Source Pulse Oximeter Temp 97.9 F Temp Source Oral Pulse Oximetry (%) 97 Intake Visit Reasons: EP Fungus? on bottom of LT foot Intake Note: pt is here for fungus on bottom of left foot, patient is also 9 weeks pregant Patient Tobacco Use Status: Never used Tobacco Allergies amoxicillin [AMOXICILLIN] Allergy (Severe, Verified 07/06/24 10:01) Hives cefadroxil [Cefadroxil] Allergy (Severe, Verified 07/06/24 10:01) anaphylaxis peanut [PEANUT] Allergy (Severe, Verified 07/06/24 10:01) LIP, TONGUE SWELLING. Do you need a note to return to daycare/school/sports/work: No HPI HPI Comments 2 History of Present Illness0 Details 24 y/o female patient who [facility] with c/o rash bottom of left foot Since April. Reports that Rash is very itchy and red. [facility] Medical History (Updated 07/06/24 @ 10:31 by Sisi Ordonez NP) Rash and nonspecific skin eruption Numbness and tingling in left hand Lumbar back pain with radiculopathy affecting right lower extremity ADHD Serum total bilirubin elevated Pilonidal abscess Positive hepatitis C antibody test Food allergy, peanut Lumbago with sciatica, right side Anxiety and depression Bipolar 1 disorder Insomnia Seizures Surgical History History of excision of pilonidal cyst (07/03/22) History of wisdom tooth extraction H/O removal of cyst Family History Father PTSD (post-traumatic stress disorder) High cholesterol Mental health disorder Mother Loss of hearing Social History Household Members: Family Both parents involved: Yes Housing: House Are you a primary home care giver to a significant other at home: No Do you presently have visiting nurse or other home services: No Alcohol intake: never Patient Tobacco Use Status: Never used Tobacco e-Cigarette/Vaping Use: Never Used Substance Use Type: Marijuana Trauma History: none voiced Special beatriz needs: No Agree to transfusion: Yes service: No Current occupational status: unemployed Current occupation: rt handed Cognitive needs: No Hearing needs: No Vision needs: Yes Female Reproductive History Menstrual Age of Menarche: 10 Review of Systems Const All systems reviewed & are unremarkable except as noted in HPI and below Physical Exam Vital Signs: Last Vital Signs Temp 97.9 F 07/06/24 10:00 Pulse 78 07/06/24 10:00 BP 118/72 07/06/24 10:00 Pulse Ox 97 07/06/24 10:00 BMI result Body Mass Index 26.3 Const General: comfortable Nutritional Appearance: well nourished Orientation/consciousness: patient oriented x3 Neuro General: patient oriented x3, gait normal and moves all extremities Extrem Ankle/foot/toe images: 2 1. Small lesion with well diffined boarders, scaly and red and flaky. Assessment & Plan Assessment & Plan (1) Rash and nonspecific skin eruption: Code(s): R21 - Rash and other nonspecific skin eruption Plan: Ordered Cream to be used for 4 weeks. Keep skin dry and clean Medications: New 2 clotrimazole-betamethasone 1-0.05 % 1 appl topical BID 45 grams 0RF 4 weeks R21 - Rash and other nonspecific skin eruption Coding Level of Care Code Est Pt Level 3 (57209) Diagnoses Rash and nonspecific skin eruption R21 Time Spent (min) 15
== END 2024-07-06 10:32 | disposition home or self-care (01) ==
PROVIDERS: PCP Internal Medicine; Visit Provider Nurse Practitioner Family
DX: R21 Rash and other nonspecific skin eruption (principal)

== ENCOUNTER → 2024-07-06 09:07 | Outpatient (BNVA) | payer OTHER, SELFPAY | PROVIDERS: PCP Internal Medicine | DX: R21 Rash and other nonspecific skin eruption (principal) | CPT/HCPCS: 99212 ==

== ENCOUNTER 2025-02-11 14:45 | Outpatient (AMB) | payer OTHER, SELFPAY ==
[2025-02-11 14:57] VITALS: BP 116/70; PULSE 75; RESP 16; TEMP 36.4; O2SAT 100; BMI 30.9
--- NOTE | 2025-02-11 14:57 | A.OFFPC_ITS ---
Vital Signs 02/11/25 14:57 Height 4 ft 11 in Weight 153 lb BMI 30.9 BP 116/70 Blood Pressure Location Lt brachial Position Sitting Respiration 16 Pulse 75 Pulse Source Pulse Oximeter Temp 97.6 F Temp Source Oral Pulse Oximetry (%) 100 Oxygen Delivery Method Room Air Intake Visit Reasons: PE/reschedule ok per AE Intake Note: Pt is here today for her PE Is last menstrual period known: Yes Last menstrual period: 02/01/25 Allergies amoxicillin (AMOXICILLIN) Allergy (Severe, Verified 02/11/25 15:49) Hives cefadroxil (Cefadroxil) Allergy (Severe, Verified 02/11/25 15:49) anaphylaxis peanut (PEANUT) Allergy (Severe, Verified 02/11/25 15:49) LIP, TONGUE SWELLING. Medication List - Last Reconciled 02/11/25 by Bindu Ron MD No Known Home Meds Tobacco use date assessed: 02/11/25 Dental Screening Dental Screen Date: 02/11/25 Did you have a dental visit in the last 12 months?: Yes Did you have a dental problem in the last 6 months where you did not have access to dental care?: No Was dental information given to patient?: Patient has dentist HPI PE/reschedule ok per AE HPI Details - The patient is a 24-year-old female pr esenting today for her physical exam. - Sacroiliac joint dysfunction: Persiste nt issues with sacroiliac joints, unrelieved by physical therapy, with pain radiating to the leg, causing numbness and locking. - Hypertriglyceridemia: Slightly elevate d triglycerides noted a year ago, linked to unhealthy dietary habits. - Anemia: Anemia during improv ed , with hemoglobin levels rising from 9 g/dL to 11 g/dL. - Bipolar disorder, ADHD, depression, an d anxiety: Ongoing psychiatric care with a new therapist after previous therapist's departure. - Preventative care: Scheduled Pap smear in June and tubal ligation planned for April. [facility] Medical History (Updated 02/18/25 @ 02:05 by Bindu Ron MD) Hypertriglyceridemia History of anemia Screening for tuberculosis Rash and nonspecific skin eruption Numbness and tingling in left hand Lumbar back pain with radiculopathy affecting right lower extremity ADHD Serum total bilirubin elevated Pilonidal abscess Positive hepatitis C antibody test Food allergy, peanut Lumbago with sciatica, right side Anxiety and depression Bipolar 1 disorder Insomnia Seizures Surgical History History of excision of pilonidal cyst (07/03/22) History of wisdom tooth extraction H/O removal of cyst Family History Father PTSD (post-traumatic stress disorder) High cholesterol Mental health disorder Mother Loss of hearing Social History Household Members: Family Both parents involved: Yes Housing: House Are you a primary outdoor emergency care technician to a significant other at home: No Do you presently have visiting nurse or other home services: No Alcohol intake: never Patient Tobacco Use Status: Never used Tobacco e-Cigarette/Vaping Use: Never Used Substance Use Type: Marijuana Trauma History: none voiced Special beatriz needs: No Agree to transfusion: Yes service: No Current occupational status: unemployed Current occupation: rt handed Cognitive needs: No Hearing needs: No Vision needs: Yes Female Reproductive History Menstrual Age of Menarche: 10 Date of last menstrual period: 02/01/25 Questionnaire PHQ-9 Over the last 2 weeks, how often have you been bothered by any of the following problems? 1. Little interest or pleasure in doing things: not at all 2. Feeling down, depressed, or hopeless: not at all 3. Trouble falling or staying asleep, or sleeping too much: not at all 4. Feeling tired or having little energy: not at all 5. Poor appetite or overeating: not at all 6. Feeling bad about yourself - or that you are a failure or have let yourself or your family down: not at all 7. Trouble concentrating on things, such as reading the newspaper or watching television: not at all 8. Moving or speaking so slowly that other people could have noticed. Or the opposite - being so fidgety or restless that you have been moving around a lot more than usual: not at all 9. Thoughts that you would be better off or of hurting yourself in some way: not at all Total score: 0 Depression Screening Interpretation: Negative Depression Screening Done: Yes 57000 - PHQ-9 Billing: Yes Source: Developed by Drs. Kodi Ferreira, Inocente Swanson and colleagues, with an educational hayden from [employer]. Thrive Questionnaire Date Thrive assessed: 02/11/25 I am a: Patient What is your living situation today?: I have a steady place to live Within the past 12 months, did the food you bought not last and you didn't have the money to get more?: Never true Within the past 12 months, did you worry whether your food would run out before you got money to buy more?: Never true Do you have trouble paying for medicines?: No Do you have trouble getting transportation to medical appointments?: No Do you have trouble paying your heating and electricity bill?: No Do you have trouble taking care of your child, family member or friend?: No Do you have trouble with day-to-day activities such as bathing, preparing meals, shopping, managing finances, etc.?: No Are you currently unemployed and looking for a job?: I choose not to answer this question Are you interested in more education?: I choose not to answer this question Please select the resources that you would like help with: None Currently or been in a relationship where the following occur: No concerns reported THRIVE Score: 0 AUDIT C Alcohol Use Questionnaire (AUDIT-C) 1. How often do you have a drink containing alcohol?: Never Total Score: 0 Score Reviewed/Action Taken: Yes ALEXANDRE-7 AMB Questionnaire ALEXANDRE-7 Date ALEXANDRE - 7 assessed: 10/11/23 Feeling nervous, anxious, or on edge: 0 = Not at all Not being able to stop or control worryin = Not at all Worrying too much about different things: 0 = Not at all Trouble relaxin = Not at all Being so restless that it is hard to sit still: 0 = Not at all Becoming easily annoyed or irritable: 0 = Not at all Feeling afraid as if something awful might happen: 0 = Not at all Total ALEXANDRE-7 score (0-4 normal; 5-9 mild; 10-14 moderate; 15-21 severe): 0 Source: Developed by Sumaya Nazario Kurt Kroenke and colleagues, with an educational hayden from [employer]. Review of Systems Const Reports no additional complaints Eyes Details: seen at [facility] , has myopia and astigmatism ENT Reports no additional complaints, Denies dysphagia and Denies odynophagia Card Reports no additional complaints Resp Reports no additional complaints GI Denies abdominal pain, Denies belching, Denies melena, Denies bloating, Denies change in bowel habits, Denies dysphagia, Denies excessive flatus, Denies dyspepsia, Denies heartburn, Denies diarrhea, Denies loose stools, Denies nausea, Denies odynophagia and Denies vomiting Reports no additional complaints Musc Reports as per HPI Skin/Breast Denies breast swelling, Denies breast pain, Denies breast mass and Denies rash Neuro Reports no additional complaints, Denies Abnormal speech present and Denies Sensory deficit (Neuro) Psych Reports no additional complaints Endo Reports no additional complaints Delgado/Lymph Reports no additional complaints Aller/Immun Reports no additional complaints Physical exam (Primary Care) Vital Signs: Last Vital Signs Temp 97.6 F 02/11/25 14:57 Pulse 75 02/11/25 14:57 Resp 16 02/11/25 14:57 BP 116/70 02/11/25 14:57 Pulse Ox 100 02/11/25 14:57 Oxygen Delivery Method Room Air 02/11/25 14:57 BMI result Body Mass Index 30.9 Tobacco/Smoking Status: Tobacco use Status Tobacco use date assessed 02/11/25 02/11/25 14:59 Patient Tobacco Use Status Never used Tobacco 02/11/25 14:59 e-Cigarette/Vaping Use Never Used 02/11/25 14:59 PHQ-9: PHQ-9 Score PHQ-9: Total score 0 02/11/25 15:49 Depression Screening Interpretation: Negative Thrive Assessment: Date of Thrive Assessment Date Thrive assessed 02/11/25 02/11/25 15:36 Currently or been in a relationship where the following occur: No concerns reported Const General: comfortable, no acute distress and alert Nutritional Appearance: obese Orientation/consciousness: patient oriented x3 HENMT General nose exam: Normal external nose present Face and sinus: Yes sinuses nontender Eyes General: appearance normal, both eyes and all related structures Neck Neck: Yes full ROM, Yes no lymphadenopathy and Yes supple Chest Breast/axilla palpation: normal palpation of the breasts Resp Auscultation: clear to auscultation bilaterally Cardio Rate: regular rate Rhythm: regular rhythm Heart sounds: S1 normal heart sound present and S2 normal heart sound present GI Palpation (GI): Soft to palpation, nontender, no guarding and no masses Auscultation: normal bowel sounds Back/Spine/Pelvis Back: back tenderness (lumbar area) Thoracic/Lumbar Spine: straight leg raise negative bilaterally Skin Other: Tattoos on right arm General skin exam: no rashes or lesions noted Neuro General: patient oriented x3, gait normal, moves all extremities and no focal motor deficits Speech: No Abnormal speech present Sensory Exam: No Sensory deficit (Neuro) Extrem General: Yes full ROM, Yes no joint enlargement, Yes no clubbing, cyanosis or edema and Yes normal gait Psych Appearance: grossly normal Mental Status: mental status grossly normal Speech and movement: Normal speech and movement present Affect: normal affect Coding Level of Care Code Est Pt Prev Care 18-39y(41159) Diagnoses Annual visit for general adult medical examination with abnormal findings Z00.01 Bipolar 1 disorder F31.9 Attention deficit hyperactivity disorder (ADHD), unspecified ADHD type F90.9 Attention deficit-hyperactivity disorder type: unspecified Lumbar back pain with radiculopathy affecting right lower extremity M54.16 Chronic sacroiliac joint pain M53.3; G89.29 Hypertriglyceridemia E78.1 Additional Codes PHQ-9 - 10587 - PHQ-9 Billing: Yes ([id number]) Assessment & Plan Assessment & Plan (1) Annual visit for general adult medical examination with abnormal findings: Code(s): Z00.01 - Encounter for general adult medical examination with abnormal findings Plan: Will check appropriate labs. Recommended dental visit every 6 months and regular eye exams, at least every 2 years. Take adequate calcium in diet and vitamin-D 3 at 2000 IU per cap once a day, in addition to weight-bearing exercises to help maintain good muscle tone and weight control. Instructed to do self-breast exam, and recommended to get yearly mammogram, starting at age 40. Patient states that she where he has an appointment in June for routine Pap pelvic exam with her OBGYN . Advised to get her yearly flu vaccine, COVID booster, up-to-date with her Tdap (2) Bipolar 1 disorder: Code(s): F31.9 - Bipolar disorder, unspecified Category: Medical Plan: Continued psychiatric care is in place with a new therapist following the departure of the previous therapist (3) ADHD: Comment: Currently followed by Dr. Gao at [facility] and mauricio fajardo, Code(s): F90.9 - Attention-deficit hyperactivity disorder, unspecified type Category: Medical Qualifiers: Attention deficit-hyperactivity disorder type: unspecified Qualified Code(s): F90.9 - Attention-deficit hyperactivity disorder, unspecified type Plan: Continued psychiatric care is in place with a new therapist following the departure of the previous therapist (4) Lumbar back pain with radiculopathy affecting right lower extremity: Code(s): M54.16 - Radiculopathy, lumbar region Category: Medical Plan: referral to a chiropractor is planned for sacroiliac joint dysfunction management, with further imaging considered if symptoms (5) Chronic sacroiliac joint pain: Code(s): M53.3 - Sacrococcygeal disorders, not elsewhere classified; G89.29 - Other chronic pain Plan: referral to a chiropractor is planned for sacroiliac joint dysfunction management, with further imaging considered if symptoms (6) Hypertriglyceridemia: Code(s): E78.1 - Pure hyperglyceridemia Category: Medical Plan: Dietary modifications are advised to manage hypertriglyceridemia, with follow-up blood work planned to monitor level Plan Patient was informed and verbally consented to the use of an ambient scribe for clinic note documentation during this visit. . Continued psychiatric care is in place with a new therapist following the departure of the previous therapist. Orders: Orders Basic Metabolic Panel Fasting 02/11/25 E78.1 - Pure hyperglyceridemia, Z00.01 - Encounter for general adult medical examination with abnormal findings, Z11.1 - Encounter for screening for respiratory tuberculosis, Z13.1 - Encounter for screening for diabetes mellitus, Z86.2 - Personal history of diseases of the blood and blood-forming organs and certain disorders involving the immune mechanism Complete Blood Count Auto Diff 02/11/25 E78.1 - Pure hyperglyceridemia, Z00.01 - Encounter for general adult medical examination with abnormal findings, Z11.1 - Encounter for screening for respiratory tuberculosis, Z13.1 - Encounter for screening for diabetes mellitus, Z86.2 - Personal history of diseases of the blood and blood-forming organs and certain disorders involving the immune mechanism IRON PROFILE 02/11/25 E78.1 - Pure hyperglyceridemia, Z00.01 - Encounter for general adult medical examination with abnormal findings, Z11.1 - Encounter for screening for respiratory tuberculosis, Z13.1 - Encounter for screening for diabetes mellitus, Z86.2 - Personal history of diseases of the blood and blood- forming organs and certain disorders involving the immune mechanism T Spot TB 02/11/25 E78.1 - Pure hyperglyceridemia, Z00.01 - Encounter for g eneral adult medical examination with abnormal findings, Z11.1 - Encounter for screening for respiratory tuberculosis, Z13.1 - Encounter for screening for diabetes mellitus, Z86.2 - Personal history of diseases of the blood and blood- forming organs and certain disorders involving the immune mechanism Lipid Panel 02/11/25 E78.1 - Pure hyperglyceridemia, Z00.01 - Encounter for general adult medical examination with abnormal findings, Z11.1 - Encounter for screening for respiratory tuberculosis, Z13.1 - Encounter for screening for diabetes mellitus, Z86.2 - Personal history of diseases of the blood and blood- forming organs and certain disorders involving the immune mechanism Alanine Aminotransferase 02/11/25 E78.1 - Pure hyperglyceridemia, Z00.01 - Encounter for general adult medical examination with abnormal findings, Z11.1 - Encounter for screening for respiratory tuberculosis, Z13.1 - Encounter for screening for diabetes mellitus, Z86.2 - Personal history of diseases of the blood and blood-forming organs and certain disorders involving the immune mechanism Aspartate Amino Transferase 02/11/25 E78.1 - Pure hyperglyceridemia, Z00.01 - Encounter for general adult medical examination with abnormal findings, Z11.1 - Encounter for screening for respiratory tuberculosis, Z13.1 - Encounter for screening for diabetes mellitus, Z86.2 - Personal history of diseases of the blood and blood-forming organs and certain disorders involving the immune mechanism Referrals Chiropractic Referral G89.29 - Other chronic pain, M53.3 - Sacrococcygeal disorders, not elsewhere classified
--- OUTSIDE RECORDS SUMMARY | 2025-02-11 15:59 | XMS_ITS | Encounter Summary ---
Author Organization [facility] Address [address] [place] [address] Phone Care Team Providers Care Reading Tutor Name Role Phone Joselin Soto NP Primary Care Provider [phone] Encounter Details Date Type Department Care Team (Late st Contact Info) Description 01/16/2017 Conversion Encounter [facility] - [address], [address] [place] [address] Joselin Soto NP [address] [place] [address] Social History Tobacco Use Types Packs/Day Years Used Date Smoking Tobacco: Never Assessed Comments Unknown Sex and Gender Information Value Date Recorded Sex Assigned at Not on file Legal Sex Female 4:23 PM EDT Gender Identity Not on file Sexual Orientation Not on file documented as of this encounter Plan of Treatment Not on file documented as of this encounter Visit Diagnoses Not on filedocumented in this encounter Care Teams Reading Tutor Relationship Specialty Start Date End Date Joselin Soto NP [address] [place] [address] PCP - General 07/31/16 01/29/24 documented as of this encounter
--- OUTSIDE RECORDS SUMMARY | 2025-02-11 15:59 | XMS_ITS | Encounter Summary ---
Author Organization [facility] Address [address] [place] [address] Phone Care Team Providers Care Painter Structural Steel Name Role Phone Joselin Soto NP Primary Care Provider [phone] Encounter Details Date Type Department Care Team (Late st Contact Info) Description 01/24/2017 Conversion Encounter [facility] - [address] [address] Social History Tobacco Use Types Packs/Day Years [...] on filedocumented in this encounter Care Teams Painter Structural Steel Relationship Specialty Start Date End Date Joselin Soto NP [address] [place] [id number] PCP - General 07/31/16 01/29/24 documented as of this encounter
--- OUTSIDE RECORDS SUMMARY | 2025-02-11 15:59 | XMS_ITS | Clinical Summary ---
Author Organization [facility] Address [address] [address] Phone Care Team Providers Care Machinist Instructor Name Role Phone Chilango Dozier MD Primary Care Provider [phone] Allergies Active Allergy Reactions Criticality Noted Date Comments Amoxicillin 07/28/2021 Cefadroxil 04/26/2017 Peanut 12/13/2016 Medications cyanocobalamin 100 MCG tablet Activ e terconazole (TERAZOL 3) 0.8 % vaginal creamIndication s:Yeast infection Place 1 applicator vaginally nightly at bedtime. 20 g 0 Active ferrous sulfate 325 mg (65 mg southern ute iron) tablet Take 325 mg by mouth daily with breakfast. Active vit/iron fum/folic ac ( VITAMIN WITH MINERALS ORAL) Take by mouth. Active EPINEPHrine 0.3 mg/0.3 mL auto-injector Inject 0.3 mg into the muscle as needed for anaphylaxis. Active acetaminophen (TYLENOL) 325 mg tablet Take 3 tablets (975 mg total) by mouth every 6 (six) hours as needed for mild pain (fever greater than 38.4 degrees C). 90 tablet 2 Active ibuprofen (ADVIL,MOTRIN) 600 MG tablet Take 1 tablet (600 mg total) by mouth every 6 (six) hours as needed. 90 tablet 2 Active polyethylene glycol (MIRALAX) 17 gram packet Take 17 g by mouth 2 (two) times a day. 60 packet 2 Active senna (SENOKOT) 8.6 mg tablet Take 2 tablets by mouth nightly at bedtime. 60 tablet 2 Active Active Problems Problem Noted Date Diagnosed Date Normal intrauterine , antepartum 2021 ADHD 08/08/2021 Overview (08/08/2021): Took Adderall XR 20 mg, stopped 2019 problem in antepartum period 07/28/2021 Overview (08/29/2021): Diagnosis: [facility] OB: Guseh [facility] provider: Referring Provider: Rudy Glynn at [facility] Primary VOCATIONAL REHABILITATION SUPERVISOR: Richard Carrillo at [facility] Delivery Plan: NICU Plan: Delivery is planned via IOL 09/04 at 39 weeks' gestation. Delivery Location: Delivery Room. The NICU team members who will be at the delivery will include Physicians, Nurses and a Respiratory Therapist. Delayed cord clamping is recommended - this at the discretion of the NICU team attending the delivery. Samm has had genetic counseling. Cord blood for genetic testing will be obtained. The will be assessed and stabilized by the Neonatology team. The family may be able to hold their baby prior to transfer given the underlying medical condition, and dependent on the baby's clinical condition. This is at the discretion of the NICU team attending the delivery. Delivery Room and Immediate Medical Plan: A peripheral IV will be placed and PGE-1 infusion will be initiated to maintain patency of the ductus arteriosus. The baby will be transferred to the [facility] CICU 8S for further management. An echocardiogram will be done shortly after and the Cardiac ICU team will determine timing of surgical intervention based on the baby's clinical status and echocardiography findings. Feeding: I reviewed the benefits of breast milk, the importance of early pumping after delivery (< 6 hours), and the availability of [facility] consultants to provide assistance for initiation of pumping. Genetic Counselor: ?? Deb Ballesteros Genetic Testing Elected Declined Results Notes Carrier Screening [] [x] Aneuploidy Screening [x] [] Low risk for aneuploidy and 22q Single Gene Screening [] [] NA Not offered Diagnostic Testing [] [x] Cord Blood [x] [] Plan: Collect sodium heparin Microarray and DNA banking Kit for pick-up in [facility] History of seizure 07/28/2021 Overview (07/28/2021): Not currently on any medications Supervision of high risk in third trim levi 07/28/2021 Overview (08/08/2021): Primary problem: Past OB history: Planned mode of delivery: Planned date/GA of delivery: Important issues for people to know: 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 21 yo Risk of diabetes due to BMI>30,prior GDM or LGA mn GLT 91 Risk of PET due to chronic HTN or prior PET mn Risk of PTB due to prior PTB, CI mn Prior uterine surgery other than LTCS mn Depression or DV screen positive mn Aneuploidy screening reviewed cjl Panorama Low risk Genetic carrier screening reviewed Amnio Results Hx MDRO Third trimester Rhogam indicated cjl A pos Third trimester hematocrit <32 cjl 30.3, 1st TM ferritin 6 Flu shot given mn COVID Vaccine mn Pfizer booster HPV Vaccine TDaP given cjl 06/19/21 OSH GBS positive Risk of intrapartum bleeding due to previa, accreta, >3 D+Cs, h/o PPH, bleeding d/o mn feeding plan reviewed mn Breast and bottle feed Other Elevated risk for depression Recommend 6 week GTT Recommend pap LIST Records Received [facility] Referral Complete NICU Consult GC Consult for Cord Blood Paint Prep Technician Review Comments: Assessment & Plan (08/28/2021 2:18 PM EDT): FWB - [facility] Aneuploidy screening - low-risk NIPT NICU - 08/23 GC - 08/22, for cord blood at delivery 37+6 3366 64%, AC 96%, nl fluid, VTX, BPP 8/ MWB - mom healthy, h/o bipolar - followed by therapist, no meds currently GLT 91 Hct 30.3 with ferritin 4 - receiving IV iron this week and next Tdap - done GBS collected, will follow-up result RTC next week for IOL Convulsion, 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 Neurologist in [place] Peanut allergy 07/28/2021 Overview (07/28/2021): Carries Epi Pen. Last reaction approx 2018 Bipolar affective 07/28/2021 Overview (08/08/2021): Stopped medications with . Has therapist weekly. Constipation 04/15/2019 Overview (07/28/2021): Taking Miralax Resolved Problems Problem Noted Date Diagnosed Date Resolved Date Pelvic pain 04/15/2019 07/28/2021 Overview (04/15/2019): H/o of this intermittent pain, u/s in past show normal ovaries Assessment & Plan (04/15/2019 1:35 PM EST): Chlamydia sent, no signs PID Given the Menorrhgia, dysmenorrhea and the fact that being careful has a high rate. Recommend LNG IUD, OCPs, implant, etc. Info given Menorrhagia with regular cycle 04/15/2019 07/28/2021 Dysmenorrhea 04/15/2019 07/28/2021 Immunizations Immunization Administration Dates Next Due COVID-19 (Pre-04/01) Pfizer Vaccine, mRNA, PF 09/20/2020,07/27/2020 Dtap, 5 Pertussis Antigens 03/08/2005,,2001,07/23,2001 HPV,quadrivalent 05/21/2014,05/15/2013 HPV9 05/25/2015 Hepatitis A, ped/adol, 2 dose 04/02/2019 Hepatitis B 07/28/2002,2001,2001 Hib,PRP-T 07/28/2002,2001,2001 INFLUENZA, SPLIT VIRUS, TRIV ALENT W/ PRESERVATIVE IM 05/05/2012,04/21/2010 IPV 03/08/2005, 2,2001,06/22,2001 Influenza Quadrivalent MDCK Preservative Free IM 04/06/2021 Influenza Quadrivalent Prese rvative Free IM 04/02/2019,04/05/2017,04/25/2016,05/21 Influenza Recombinant Ruben valent Preservative Free IM 06/06/2020 Influenza, Unspecified Formulation 01/26/2009, MMR 03/08/2005,02/20/2002 Meningococcal MCV4P 08/14/2018,05/05/2012 PPD Test 04/02/2019 Pneumococcal conjugate, PCV 7 07/28/2002, 002,2001 Tdap 06/28/2021,05/05/2012 Varicella 03/24/2007,12/16/2003 Family History Medical History Relation Comments Hyperlipidemia Father No Known Problems Mother Heart attack Paternal Grandfather Diabetes Paternal Grandmother Hypertension Paternal Grandmother Relation Status Comments Father Alive Mother Alive Paternal Grandfather Paternal Grandmother Social History Tobacco Use Types Packs/Day Years Used Date Smoking Tobacco: Never Smokeless Tobacco: Never Alcohol Use Standard Drinks/Week Comments No 0 (1 standard drink = 0.6 oz pur e alcohol) Education Answer Date Recorded Are you interested in more education? Not on monica e 10/05/2022 Are you concerned about learning? Not on file 10/05/2022 No 10/05/2022 No 10/05/2022 Digital Access Answer Date Recorded No 11/02/2022 No 11/02/2022 Reliable internet access at home? Not on file 11/02/2022 Device with a working camera? Not on file Comments No Sex and Gender Information Value Date Recorded Sex Assigned at Female 06/17/2017 9:38 AM EST Legal Sex Female 8:46 PM EDT Gender Identity Female 06/17/2017 9:38 AM EST Sexual Orientation Choose not to disclose 2017 9:38 AM EST Last Filed Vital Signs Vital Sign Reading Time Taken Comments Blood Pressure 115/68 09/07/2021 7:47 AM EDT Pulse 97 09/07/2021 7:47 AM EDT Temperature 36.1 C (96.9 F) 09/07/2021 7:47 AM EDT Respiratory Rate 18 09/07/2021 7:47 AM EDT Oxygen Saturation 98% 09/07/2021 7:47 AM EDT Inhaled Oxygen Concentration - - Weight 81.6 kg (180 lb) 09/04/2021 10:01 PM EDT Height 149.9 cm (4' 11 ) 09/04/2021 10:01 PM EDT Body Mass Index 36.36 09/04/2021 10:01 PM EDT Plan of Treatment Health Maintenance Due Date Last Done Comments DEPRESSION SCREENING 2013 SMOKING Hx and SMOKELESS TOBACCO SCREENING 2014 MENINGOCOCCAL VACCINES (B) (1 of 2 - Standard) 2017 HEPATITIS C SCREENING 2019 HEPATITIS A VACCINES (2 of 2 - 2-dose series) 10/02/2019 04/02/2019 PAP SMEAR 2022 CHLAMYDIA SCREENING 07/14/2022 07/14/2021, 07/27/2019, 04/15/2019, Additional history exists INFLUENZA VACCINE (#1) 2025 , 06/06/2020, 04/02/2019, Additional history exists COVID-19 VACCINE ( season) 2025 04/14/2021, 09/20/2020, 07/27/2020 Adult Td,Tdap Booster 06/28/2031 06/28/2021, 012 HIB VACCINES Completed 07/28/2002, 07/11, 2001 PNEUMOCOCCAL VACCINES (0-49 years) Aged Out 07/28/2002, 02/20/2002, 2001 No longer eligible based on patient's age to complete this topic HPV VACCINES Completed 05/25/2015, 05/10, 05/15/2013 MENINGOCOCCAL VACCINES (ACWY) Completed 08/14/2018, 05/05/2012 HIV ONE-TIME SCREENING (18-65 YEARS) Completed 02/16/2021 Medical Devices Not on file Procedures Procedure Name Priority Date/Time Associated Diagnosis Comments CHLAMYDIA TRACHOMATIS NUCLEIC ACID DETECTION Routine 07/14/2021 from Last 3 Months or Most Recently Relevant to Health Maintenance Results * Chlamydia trachomatis nucleic acid detection (07/14/2021) CHLAMYDIA - EXTERNAL Neg Historical Provider NON CULTURE MICROBIOLOGY Final Result from Last 3 Months or Most Recently Relevant to Health Maintenance Insurance ACO ACO ACO ACO ACO ACO ACO ACO ACO Advance Directives For more information, please contact: [phone] (9AM - 5PM [place], Saturday-Saturday) * Full Code (Latest Code Status on File) Date Activated Date Inactivated Comments 09/05/2021 4:55 AM Question Answer Comments Code Status Confirmed With: Patient Care Teams Machinist Instructor Relationship Specialty Start Date End Date Chilango Dozier MD [address] [place] [address] PCP - General Internal Medicine 08/23/21 Additional Source Comments The information contained in this document represents components of the legal health record. It is not the complete legal health record.[facility]
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
--- OUTSIDE RECORDS SUMMARY | 2025-02-11 15:59 | XMS_ITS | Clinical Summary ---
Author Organization [facility] Address [address] [place] [address] Care Team Providers Care Senior Strategy Analyst Name Role Phone Self, Referred Primary Care Provider Unavailabl e Source Comments Please note that some or all of the patient's information could have additional privacy protections. State laws allow health care providers to render certain types of treatment to minors without parental consent. Please do not assume that this information can be shared solely by obtaining just the consent of the patient's parent/guardian. Please determine if all or part of the patient's care was rendered without parent/guardian involvement. And, if so, obtain the minor's consent prior to disclosure.[facility] Allergies Active Allergy Reactions Criticality Noted Date Comments Peanut 12/13/2016 Medications dextroamphetamine- amphetamine (ADDERALL XR) 15 MG extended release capsule Acti ve Social History Tobacco Use Types Packs/Day Years Used Date Smoking Tobacco: Never Assessed Comments Unknown Sex and Gender Information Value Date Recorded Sex Assigned at Not on file Legal Sex Female 10:27 PM EDT Gender Identity Not on file Sexual Orientation Not on file Last Filed Vital Signs Vital Sign Reading Time Taken Comments Blood Pressure 117/78 12/13/2016 10:40 PM EDT Pulse 124 12/13/2016 10:40 PM EDT Temperature 37 C (98.6 F) 12/13/2016 10:40 PM EDT Respiratory Rate 18 12/13/2016 10:4 0 PM EDT Oxygen Saturation 99% 12/13/2016 10: 40 PM EDT Inhaled Oxygen Concentration - - Weight 51.8 kg (114 lb 3.2 oz) 12/13/2016 10:40 PM EDT Height 157.5 cm (5' 2 ) 12/13/2016 10:4 0 PM EDT Pt.unable to stand at this time Body Mass Index 20.89 12/13/2016 10:40 PM EDT Plan of Treatment Not on file Insurance [address] [place] [address] [facility] MEDICAID Care Teams Senior Strategy Analyst Relationship Specialty Start Date End Date Self, Referred [address] [place] [address] PCP - General 12/13/16
--- OUTSIDE RECORDS SUMMARY | 2025-02-11 15:59 | XMS_ITS | Encounter Summary ---
Author Organization [facility] Address [address] [place] [phone] Phone Care Team Providers Care Flight Communications Officer Name Role Phone Joselin Soto LAMINATION BUILDER Primary Care Provider [phone] Reason for Visit * Reason Comments Med Refill Encounter Details Date Type Department Care Team ([facility] st Contact Info) Description 09/28/2018 Refill [facility] [place] [address] [place] [address] Joselin Soto NP [address] [place] [address] Encounter for initial prescription of contraceptive pills Social History Tobacco Use Types Packs/Day Years Used Date Smoking Tobacco: Never Smokeless Tobacco: Never Alcohol Use Standard Drinks/Week Comments No 0 (1 standard drink = 0.6 oz pur e alcohol) Hunger/Food Answer Date Recorded No 08/14/2018 Stable Housing Answer Date Recorded 0 08/14/2018 Transportation Concerns Answer Date Rec orded No 08/14/2018 Hazards in Home Answer Date Recorded No 08/14/2018 Financing Utilities Answer Date Recorde d No 08/14/2018 Safety at Home Answer Date Recorded No 08/14/2018 Outside Support Answer Date Recorded No 08/14/2018 Understanding Health Concerns Answer Da te Recorded No 08/14/2018 Financing Health Concerns Answer Date R ecorded No 08/14/2018 Missing School or Work Answer Date Prem rded No 08/14/2018 Comments No Sex and Gender Information Value Date Recorded Sex Assigned at Not on file Legal Sex Female 4:23 PM EDT Gender Identity Not on file Sexual Orientation Not on file documented as of this encounter Plan of Treatment Not on file documented as of this encounter Visit Diagnoses Diagnosis Encounter for initial prescription of contraceptive pills documented in this encounter Care Teams Flight Communications Officer Relationship Specialty Start Date End Date Joselin Soto NP [address] [place] [address] PCP - General 07/31/16 01/29/24 documented as of this encounter
--- OUTSIDE RECORDS SUMMARY | 2025-02-11 15:59 | XMS_ITS | Encounter Summary ---
Author Organization [facility] Address [address] [place] [address] [place] [phone] Phone Care Team Providers Care Criminal Justice Lawyer Name Role Phone Joselin Soto NP Primary Care Provide r Pcp, Unknown Primary Care Provider Chilango Turner MD Primary Care Provider [phone] Encounter Details Date Type Department Care Team (Late st Contact Info) Description 08/06/2018 Ancillary Orders Virtual Department [address] [place] [address] Karen Viramontes, [facility] 193 [facility], [facility] 2 [place] [address] [email or web address] Abdominal pain, left lower quadrant Social History Tobacco Use Types Packs/Day Years Used Date Smoking Tobacco: Never Smokeless Tobacco: Never Alcohol Use Standard Drinks/Week Comments No 0 (1 standard drink = 0.6 oz pur e alcohol) Comments No Sex and Gender Information Value Date Recorded Sex Assigned at Female 06/17/2017 9:38 AM EST Legal Sex Female 8:46 PM EDT Gender Identity Female 06/17/2017 9:38 AM EST Sexual Orientation Choose not to disclose 2017 9:38 AM EST documented as of this encounter Plan of Treatment Not on file documented as of this encounter Results * US PELVIS TRANSABDOMINAL PLUS TRANSVAGINAL WITH DOPPLER (08/07/2018 3:10 PM EST) Anatomical Region Laterality Modality Pelvis, Uterus/Adnexa Ultrasound 08/07/2018 6:27 PM EST Impressions 08/07/2018 6:30 PM EST No uterine or ovarian pathology to explain right lower quadrant pain POS - [id number] Narrative 08/07/2018 6:30 PM EST HISTORY: Right lower quadrant pain. Evaluate for an ovarian cyst. COMPARISON: 08/16/2016 FINDINGS: Both transabdominal and endovaginal pelvic ultrasound were performed. Uterus measures 6.6 x 3.4 x 5.3 cm and is anteflexed in the midline. Uterine echotexture appears homogeneous. Probable subcentimeter Nabothian cyst. Endometrial complex measures 0.5 cm in thickness without abnormality apparent. Ovaries are normal in size with the right measuring 3.1 x 2.1 x 1.2 cm and the left measuring 2.8 x 1.6 x 1.3 cm. Multiple follicles bilaterally. Preserved blood flow to the ovaries on color and spectral Doppler. Trace free fluid in the cul-de-sac. Procedure Note Asher Luo MD - 08/07/2018 HISTORY: Right lower quadrant pain. Evaluate for an ovarian cyst. COMPARISON: 08/16/2016 FINDINGS: Both transabdominal and endovaginal pelvic ultrasound were performed. Uterus measures 6.6 x 3.4 x 5.3 cm and is anteflexed in the midline.Uterine echotexture appears homogeneous. Probable subcentimeter Nabothiancyst. Endometrial complex measures 0.5 cm in thickness withoutabnormality apparent. Ovaries are normal in size with the right measuring 3.1 x 2.1 x 1.2 cm andthe left measuring 2.8 x 1.6 x 1.3 cm. Multiple follicles bilaterally.Preserved blood flow to the ovaries on color and spectral Doppler. Trace free fluid in the cul-de-sac. IMPRESSION: No uterine or ovarian pathology to explain right lower quadrant pain POS - [id number] us Karen Tomasa Vasquez Ana M AWNING ASSEMBLER IM US PEL VIS Final Result * US ABDOMEN LIMITED APPENDIX (ADULT) (08/07/2018 2:47 PM EST) Anatomical Region Laterality Modality Abdomen Ultrasound 08/07/2018 6:26 PM EST Impressions 08/07/2018 6:27 PM EST Appendix not visualized; therefore, appendicitis cannot be excluded. POS [id number] Narrative 08/07/2018 6:27 PM EST COMPARISON: None FINDINGS: Targeted ultrasound in the right lower quadrant was performed. The area of pain was delineated by the patient. Appendix not visualized. No free fluid or fluid collection. No enlarged lymph nodes apparent. Procedure Note Asher Luo MD - 08/07/2018 COMPARISON: None FINDINGS: Targeted ultrasound in the right lower quadrant was performed. The areaof pain was delineated by the patient. Appendix not visualized. No free fluid or fluid collection. No enlargedlymph nodes apparent. IMPRESSION: Appendix not visualized; therefore, appendicitis cannot be excluded. POS [id number] Karen Viramontes CNP [facility] US ABD OMEN Final Result documented in this encounter Visit Diagnoses Diagnosis Abdominal pain, left lower quadrant Abdominal pain, left lower quadrant Abdominal pain, left lower quadrant documented in this encounter Additional Health Concerns Infection Onset Date Last Indicated Resolved Time Influenza 07/30/2019 07/30/2019 08/06/2019 1:24 AM EST CoV-Risk 10/08/2019 10/08/2019 10/22/2019 1:23 AM EDT documented as of this encounter Care Teams Criminal Justice Lawyer Relationship Specialty Start Date End Date Joselin Soto NP [address] [place] [phone] [email or web address] PCP - General Family Medicine 08/06/18 07/26/21 Pcp, Unknown PCP - General 07/27/21 08/22/21 Chilango Dozier MD [address] [place] [address] PCP - General Internal Medicine 08/23/21 documented as of this encounter Additional Source Comments The information contained in this document represents components of the legal health record. It is not the complete legal health record.[facility]
--- OUTSIDE RECORDS SUMMARY | 2025-02-11 15:59 | XMS_ITS | Encounter Summary ---
Author Organization [facility] Address [address] [place] [phone] Phone Care Team Providers Care Photographic Colorist Name Role Phone Joselin Soto NP Primary Care Provide r Pcp, Unknown Primary Care Provider Chilango Turner MD Primary Care Provider [phone] Encounter Details Date Type Department Care Team (Latest Contact Info) Description 09/04/2019 Transcribe Orders Virtual Department [address] [place] [address] Gabby Weldon MD 193 [facility] 2 [place] [address] [email or web address] Chest pain, unspecified type (Primary Dx) Social History Tobacco Use Types Packs/Day Years [...] documented as of this encounter Results * ECG 12-LEAD (09/04/2019 9:52 AM EDT) Ventricular Rate EKG/MIN 93 BPM [facility] Atrial Rate 93 BPM [facility] MT Interval 156 ms [facility] QRS Duration 80 ms [facility] QT Interval 354 ms [facility] QTC Interval 440 ms [facility] P Geronimo 22 degrees [facility] R Wave Geronimo 78 degrees [facility] T Wave Geronimo 30 degrees [facility] 09/04/2019 9:52 AM EDT 09/08/2019 8:26 AM EDT Narrative [facility] - 09/08/2019 8:26 AM EDT Normal sinus rhythm Normal ECG When compared with ECG of 19-FEB-2017 15:57, Previous ECG has undetermined rhythm, needs review Confirmed by RAÚL PAZ DO ([id number]) on 09/08/2019 8:26:41 AM us Gabby Weldon MD ECG ORDERABLES Final Resu lt [facility] documented in this encounter Visit Diagnoses Diagnosis Chest pain, unspecified type- Primary Chest pain, unspecified type documented in this encounter Additional Health Concerns Infection Onset Date Last Indicated Resolved Time CoV-Risk 10/08/2019 10/08/2019 10/22/2019 1:23 AM EDT documented as of this encounter Care Teams Photographic Colorist Relationship Specialty Start Date End Date Joselin Soto NP [address] [place] [address] [email or web address] PCP - General Family Medicine 08/06/18 07/26/21 Pcp, Unknown PCP - General 07/27/21 08/22/21 Chilango Dozier MD [address] [place] [address] PCP - General Internal Medicine 08/23/21 documented as of this encounter Additional Source Comments The information contained in this document represents components of the legal health record. It is not the complete legal health record.[facility]
--- OUTSIDE RECORDS SUMMARY | 2025-02-11 15:59 | XMS_ITS | Clinical Summary ---
Author Organization [facility] Address [address] [place] [address] Care Team Providers Care Inspector Watch Assembly Name Role Phone Unavailable Primary Care Provider Unavailabl e Social History Tobacco Use Types Packs/Day Years Used Date Smoking Tobacco: Never Assessed Comments Unknown Sex and Gender Information Value Date Recorded Sex Assigned at Not on file Legal Sex Female 4:54 AM EST Gender Identity Not on file Sexual Orientation Not on file Plan of Treatment Health Maintenance Due Date Last Done Comments Gonorrhea/Chlamydia Screening 2001 HPV Vaccines (1 - 3-dose series) 02/18/2016 Meningococcal B Vaccine (1 o f 2 - Standard) 2017 DTaP,Tdap,and Td Vaccines (1 - Tdap) 02/18/2020 Hepatitis B Vaccines (1 of 3 - 19+ 3-dose series) 02/18/2020 Cervical Cancer Screening: P ap Smear 2022 Depression Screening 06/10/2024 COVID-19 Vaccine (1 - 2023-2 5 season) 2025 Influenza Vaccine (#1) 2025 HIB Vaccines Aged Out No longer eligi ble based on patient's age to complete this topic Hepatitis A Vaccines Aged Out No long er eligible based on patient's age to complete this topic IPV Vaccines Aged Out No longer eligi ble based on patient's age to complete this topic MMR Vaccines Aged Out No longer eligi ble based on patient's age to complete this topic Meningococcal ACWY Vaccine Aged Out N o longer eligible based on patient's age to complete this topic Pneumococcal Vaccine: Pediat rics (0 to 5 Years) and At-Risk Patients (6 to 49 Years) Aged Out No longer eligible b ased on patient's age to complete this topic RSV Immunization Patients Un bj 20 months Aged Out No longer eligible b ased on patient's age to complete this topic Varicella Vaccines Aged Out No longer eligible based on patient's age to complete this topic
== END 2025-02-11 16:10 | disposition home or self-care (01) ==
LOC: HO.HMCC 14:46
PROVIDERS: PCP Internal Medicine; Visit Provider Internal Medicine
DX: Z00.01 Encounter for general adult medical examination with abnormal findings (principal); F31.9 Bipolar disorder, unspecified; F90.9 Attention-deficit hyperactivity disorder, unspecified type; M54.16 Radiculopathy, lumbar region; M53.3 Sacrococcygeal disorders, not elsewhere classified; G89.29 Other chronic pain; E78.1 Pure hyperglyceridemia

== ENCOUNTER → 2025-02-11 14:45 | Outpatient (BNVA) | payer OTHER, SELFPAY | PROVIDERS: PCP Internal Medicine; Visit Provider Internal Medicine | DX: Z00.01 Encounter for general adult medical examination with abnormal findings (principal); E78.1 Pure hyperglyceridemia; D64.9 Anemia, unspecified; F31.9 Bipolar disorder, unspecified; F90.9 Attention-deficit hyperactivity disorder, unspecified type; F41.9 Anxiety disorder, unspecified; M54.16 Radiculopathy, lumbar region; M53.3 Sacrococcygeal disorders, not elsewhere classified; G89.29 Other chronic pain | CPT/HCPCS: 96127; 99395 ==

== ENCOUNTER 2025-03-25 08:50 | Outpatient (REF) | payer OTHER, SELFPAY ==
[2025-03-25 09:56] LABS: Platelet Count 247 X10*3/uL (160-400)
[2025-03-25 11:18] LABS: Alanine Aminotransferase 22 U/L (0-31); Albumin Level 4.6 g/dL (3.5-5.0); Alkaline Phosphatase 53 U/L (39-117); Aspartate Amino Transferase 29 U/L (5-31); Cholesterol 211 mg/dL (<200); Ferritin 14 ng/mL (10-122); HDL Cholesterol 55 mg/dL (>40); Total Protein 7.6 g/dL (6.5-8.0); Triglycerides 158 mg/dL (<150)
[2025-03-25 11:38] LABS: Folate 14.4 ng/mL (> or = 4.0); Vitamin B12 617 pg/mL (200-900)
[2025-03-26 20:43] LABS: Transglutaminase Ab IgG <1.0 U/mL
[2025-03-31 11:24] LABS: FIB-ALT 16 U/L (6-29); FIB-Alpha-2-Macroglobulin 160 mg/dL (106-279); FIB-Apolipoprotein A1 176 mg/dL (101-198); FIB-GGT 14 U/L (3-40); FIB-Haptoglobin 143 mg/dL (43-212); FIB-Total Bilirubin 1.1 mg/dL (0.2-1.2); Liver Fibrosis Score 0.05; Liver Fibrosis Stage F0; Nec Inflam Act Grade A0; Nec Inflam Act Score 0.04
[2025-03-31 17:38] LABS: Vitamin D 25-OH, D2 <4 ng/mL; Vitamin D 25-OH, D3 27 ng/mL; Vitamin D 25-OH, Total 27 ng/mL (30-100)
== END 2025-03-25 08:51 | disposition home or self-care (01) ==
LOC: HO.LAB 08:50
PROVIDERS: Absent Provider Internal Medicine; PCP Internal Medicine; Visit Provider Nurse Practitioner Family
DX: K21.9 Gastro-esophageal reflux disease without esophagitis (principal); I25.10 Atherosclerotic heart disease of native coronary artery without angina pectoris; E55.9 Vitamin D deficiency, unspecified; K76.0 Fatty (change of) liver, not elsewhere classified; R19.7 Diarrhea, unspecified; R74.8 Abnormal levels of other serum enzymes; R74.01 Elevation of levels of liver transaminase levels; R76.89 Other specified abnormal immunological findings in serum; R10.13 Epigastric pain
CPT/HCPCS: 36415; 80061; 80076; 81596; 82306; 82607; 82728; 82746; 85049; 86364; 99212

== ENCOUNTER 2025-03-25 08:50 | Outpatient (AMB) | payer OTHER, SELFPAY ==
--- NOTE | 2025-03-25 08:51 | A.OFFVIS_ITS ---
Vital Signs 03/25/25 08:52 Height 4 ft 11 in Weight 152 lb BMI 30.7 BP 106/64 Blood Pressure Location Rt brachial Position Sitting Pulse 78 Pulse Source Pulse Oximeter Pulse Oximetry (%) 99 Oxygen Delivery Method Room Air Intake Visit Reasons: Added from CL; Liver disease / abd pain mgmt Intake Note: Est pt for mgmt of GERD + IBS, SARI 1 year ago w/ US done. CC: C.O. RUQ pain intermittently, occasional epigastric pain. Pt reports that she had multiple difficulties during her recent w/ GERD, N+V. Pt stopped all of her medications during the . Street Car Inspector Required: No Accompanied by: Child Allergies amoxicillin (AMOXICILLIN) Allergy (Severe, Verified 03/25/25 08:52) Hives cefadroxil (Cefadroxil) Allergy (Severe, Verified 03/25/25 08:52) anaphylaxis peanut (PEANUT) Allergy (Severe, Verified 03/25/25 08:52) LIP, TONGUE SWELLING. HPI HPI Added from CL; Liver disease / abd pain mgmt: Details: LAST VISIT Hepatomegaly History of jaundice Serum total bilirubin elevated Gilbert's disease GERD (gastroesophageal reflux disease) Plan Continue avoiding dietary triggers and late night snacking. Staying upright for minimum 3 hours after meals discussed with patient. Continue low-fat low carb diet. Focus on eating more protein. Patient will follow-up in 1 year so we can re-evaluate. Patient will do ultrasound with elastography in 6 months. Patient will call our office if she will have any GI concerning symptoms. Patient is agreeable to this plan and verbalizes understanding of instructions. She was given the opportunity to ask questions and all questions answered. ? Thank you for allowing me to participate in her care Orders US abdomen estrella w elastography Today R74.01 TODAY'S VISIT Patient is here today for requested visit. Patient was last seen back in January of 2024. Patient has not followed up with us as she was and was following up with [facility]. Patient reports that while she had nausea and vomiting. Patient was given were Ursodiol. Diagnosed with fatty liver, last year in January liver elastography show F2/F3 level of fibrosis. Patient reports her father was diagnosed with fatty liver. Patient is not on any particular diet at this time. Last liver enzymes were normal. Patient will be sent today for more blood work. Patient reports epigastric pain occasional nausea. Patient was taking omeprazole in the past prior . During was on famotidine and Ursodiol. Patient reports that she is moving her bowels well. Denies any melena, hematochezia reports occasional dyspepsia without dysphagia or odynophagia. Patient is not . [facility] Medical History (Updated 03/25/25 @ 09:[address] [facility]) NAFL (nonalcoholic fatty liver) GERD (gastroesophageal reflux disease) Hypertriglyceridemia History of anemia Screening for tuberculosis Rash and nonspecific skin eruption Numbness and tingling in left hand Lumbar back pain with radiculopathy affecting right lower extremity ADHD Serum total bilirubin elevated Pilonidal abscess Positive hepatitis C antibody test Food allergy, peanut Lumbago with sciatica, right side Anxiety and depression Bipolar 1 disorder Insomnia Seizures Surgical History History of excision of pilonidal cyst (07/03/22) History of wisdom tooth extraction H/O removal of cyst Family History Father PTSD (post-traumatic stress disorder) High cholesterol Mental health disorder Mother Loss of hearing Social History Household Members: Family Both parents involved: Yes Housing: House Are you a primary health care legal assistant to a significant other at home: No Do you presently have visiting nurse or other home services: No Alcohol intake: never Patient Tobacco Use Status: Never used Tobacco e-Cigarette/Vaping Use: Never Used Substance Use Type: Marijuana Trauma History: none voiced Special beatriz needs: No Agree to transfusion: Yes service: No Current occupational status: unemployed Current occupation: rt handed Cognitive needs: No Hearing needs: No Vision needs: Yes Female Reproductive History Menstrual Age of Menarche: 10 Review of Systems Const Denies weight gain and Denies weight loss ENT Reports no additional complaints, Denies dysphagia and Denies odynophagia Card Reports no additional complaints Resp Reports no additional complaints GI Denies abdominal pain, Denies belching, Denies melena, Denies bloating, Denies change in bowel habits, Denies dysphagia, Denies excessive flatus, Denies dyspepsia, Denies heartburn, Denies diarrhea, Denies loose stools, Denies nausea, Denies odynophagia and Denies vomiting Reports no additional complaints Musc Reports no additional complaints Neuro Reports no additional complaints Psych Reports no additional complaints Endo Reports no additional complaints Physical Exam Vital Signs: Last Vital Signs Pulse 78 03/25/25 08:52 BP 106/64 03/25/25 08:52 Pulse Ox 99 03/25/25 08:52 Oxygen Delivery Method Room Air 03/25/25 08:52 BMI result Body Mass Index 30.7 Const General: healthy appearing, no acute distress and well developed Nutritional Appearance: well nourished Orientation/consciousness: patient oriented x3 Resp Effort & Inspection: normal respiratory effort, able to speak in complete sentences, no tracheal deviation and symmetric chest movement Auscultation: clear to auscultation bilaterally Cardio Rate: regular rate GI Inspection: Yes normal to inspection and No distended Palpation (GI): Soft to palpation, not firm, nontender and No hepatosplenomegaly present Auscultation: normal bowel sounds General: Yes no CVA tenderness Back/Spine/Pelvis Back: no CVA tenderness Skin General skin exam: elasticity normal, turgor normal and dry skin Neuro General: patient oriented x3 Psych Appearance: grossly normal Mental Status: mental status grossly normal Results Reviewed Results Reviewed: LIVER ELASTOGRAPHY: FINDINGS: PANCREAS: . The visualized pancreatic head and body are normal in appearance. The remainder of the pancreas is obscured from visualization by the overlying bowel gas. LIVER: . The liver demonstrates normal size and contour but with increased echogenicity suggesting steatosis. No focal lesion or intrahepatic biliary duct dilatation. The right lobe measures 16.4 cm in length. The left lobe measures 9.8 cm in length. Portal flow is hepatopedal Shear wave elastography provides a median stiffness of 1.8 m/s (reference: normal median stiffness is 0.81 - 1.22 m/s). The IQR/median stiffness to assess sampling precision is 0.08 (reference: optimal IQR/median stiffness is under 0.3). GALLBLADDER: Normal. The gallbladder is physiologically distended without evidence of stones, sludge, polyps, wall thickening or pericholecystic fluid. COMMON BILE DUCT: Normal in caliber measuring 0.2 cm in diameter. RIGHT KIDNEY: Normal. No hydronephrosis. No renal calculi or focal parenchymal lesions. The kidney measures 10.1 cm in maximum dimension. FREE FLUID: None. US/US abdomen estrella w elastography IMPRESSION: 1. Echogenic liver 2. Elastography: Liver elastography measurements are consistent with a moderate risk for clinically significant liver fibrosis (METAVIR Stage F2-F3). Assessment & Plan Assessment & Plan (1) Positive hepatitis C antibody test: Comment: Negative viral load Code(s): R76.8 - Other specified abnormal immunological findings in serum Category: Medical (2) GERD (gastroesophageal reflux disease): Code(s): K21.9 - Gastro-esophageal reflux disease without esophagitis Category: Medical Qualifiers: Esophagitis presence: esophagitis presence not specified Qualified Code(s): K21.9 - Gastro-esophageal reflux disease without esophagitis (3) NAFL (nonalcoholic fatty liver): Code(s): K76.0 - Fatty (change of) liver, not elsewhere classified Category: Medical (4) Postprandial epigastric pain: Code(s): R10.13 - Epigastric pain Plan Will start patient back on omeprazole. Patient states that she did well with that. Avoid dietary triggers and late night snacking. Staying upright for minimum 3 hours after meals discussed with patient. Patient will get more blood work today. Transglutaminase, vitamin B12, folate, lipid panel, ferritin, vitamin-D, liver fibrosis panel and liver panel. Patient will be sent for ultrasound with elastography to compare. Will do fib 4 score after her lab results come back. Patient will return in 3 months. She will call our office if she will continue have GI concerning symptoms. Patient is agreeable to this plan and verbalizes understanding of instructions. She was given the opportunity to ask questions and all questions answered. Thank you for allowing me to participate in her care Orders: Orders Transglutaminase IgA 03/25/25 R10.9 - Unspecified abdominal pain Vitamin B12 and Folate 03/25/25 R19.7 - Diarrhea, unspecified Lipid Panel 03/25/25 I25.10 - Atherosclerotic heart disease of [place] coronary artery without angina pectoris Ferritin 03/25/25 R74.8 - Abnormal levels of other serum enzymes Vitamin D 25-OH (D2 and D3) 03/25/25 E55.9 - Vitamin D deficiency, unspecified Transglutaminase Ab IgG 03/25/25 R10.9 - Unspecified abdominal pain Liver Fibrosis Pnl 03/25/25 K76.0 - Fatty (change of) liver, not elsewhere classified Liver Panel 03/25/25 R74.01 - Elevation of levels of liver transaminase levels Platelet Count 03/25/25 K76.0 - Fatty (change of) liver, not elsewhere classified US abdomen estrella w elastography 03/25/25 K76.0 - Fatty (change of) liver, not elsewhere classified Medications: New omeprazole 20 mg PO DAILY 30 caps 4RF K21.9 - Gastro-esophageal reflux disease without esophagitis Coding Level of Care Code Est Pt Level 4 (71387) Complex EM visit Add On G2211 Diagnoses Positive hepatitis C antibody test R76.8 Gastroesophageal reflux disease, unspecified whether esophagitis present K21.9 Esophagitis presence: esophagitis presence not specified NAFL (nonalcoholic fatty liver) K76.0 Postprandial epigastric pain R10.13 Time Spent (min) 40 Comment 25 minutes spent with patient and additional 15 minutes spent reviewing her records
[2025-03-25 08:52] VITALS: BP 106/64; PULSE 78; O2SAT 99; BMI 30.7
--- OUTSIDE RECORDS SUMMARY | 2025-03-25 09:42 | XMS_ITS | Encounter Summary ---
Author Organization [facility] Address [address] [place] [address] Phone Care Team Providers Care [employer]oples[employer] Hcm Consultant Name Role Phone Joselin Soto NP Primary Care Provider [phone] Encounter Details Date Type Department Care Team (Late st Contact Info) Description 01/24/2017 Conversion Encounter [facility] - [address] [address] Social History Tobacco Use Types Packs/Day Years [...] on filedocumented in this encounter Care Teams Peoplesoft Hcm Consultant Relationship Specialty Start Date End Date Joselin Soto NP [address] [place] [id number] PCP - General 07/31/16 01/29/24 documented as of this encounter
--- OUTSIDE RECORDS SUMMARY | 2025-03-25 09:42 | XMS_ITS | Encounter Summary ---
Author Organization [facility] Address [address] [place] [address] [place] [address] Phone Care Team Providers Care Data Warehousing Specialist Name Role Phone Joselin Soto NP Primary Care Provide r Pcp, Unknown Primary Care Provider Chilango Turner MD Primary Care Provider [phone] Encounter Details Date Type Department Care Team (Late st Contact Info) Description 08/06/2018 Ancillary Orders Virtual Department 30 [place] [address] Karen Viramontes, [facility] 193 [facility], [facility] 2 [place] [address] [email or web address] Abdominal pain, left lower quadrant Social History [...] explain right lower quadrant pain POS - [id number] Narrative 08/07/2018 6:30 PM EST HISTORY: Right [...] explain right lower quadrant pain POS - [id number] us Karen Tomasa Vasquez Ana M GUN WELDER IM US PEL VIS Final Result * US ABDOMEN LIMITED APPENDIX (ADULT) (08/07/2018 2:47 PM EST) Anatomical Region Laterality Modality Abdomen Ultrasound 08/07/2018 6:26 PM EST Impressions 08/07/2018 6:27 PM EST Appendix not visualized; therefore, appendicitis cannot be excluded. POS [id number] Narrative 08/07/2018 6:27 PM EST COMPARISON: None [...] visualized; therefore, appendicitis cannot be excluded. POS [id number] Karen Viramontes CNP [facility] US ABD OMEN Final Result documented in this encounter Visit Diagnoses Diagnosis Abdominal pain, left lower quadrant Abdominal pain, left lower quadrant Abdominal pain, left lower quadrant documented in this encounter Additional Health Concerns Infection Onset Date Last Indicated Resolved Time Influenza 07/30/2019 07/30/2019 08/06/2019 1:24 AM EST CoV-Risk 10/08/2019 10/08/2019 10/22/2019 1:23 AM EDT documented as of this encounter Care Teams Data Warehousing Specialist Relationship Specialty Start Date End Date Joselin Soto NP [address] [place] [id number] [email or web address] PCP - General Family Medicine 08/06/18 07/26/21 Pcp, Unknown PCP - General 07/27/21 08/22/21 Chilango Dozier MD [address] [place] [address] PCP - General Internal Medicine 08/23/21 documented as of this encounter Additional Source Comments The information contained in this document represents components of the legal health record. It is not the complete legal health record.[facility]
--- OUTSIDE RECORDS SUMMARY | 2025-03-25 09:42 | XMS_ITS | Encounter Summary ---
Author Organization [facility] Address [address] [place] [address] Phone Care Team Providers Care Employee Relations Director Name Role Phone Joselin Soto SHRIMP PEELER Primary Care Provider [phone] Reason for Visit * Reason Comments Med Refill Encounter Details Date Type Department Care Team ([facility] st Contact Info) Description 09/28/2018 Refill [facility] - [place] 193 [place] [address] Joselin Soto NP [address] [place] [address] Encounter for initial prescription of contraceptive pills [...] pills documented in this encounter Care Teams Employee Relations Director Relationship Specialty Start Date End Date Joselin Soto NP [address] [place] [address] PCP - General 07/31/16 01/29/24 documented as of this encounter
--- OUTSIDE RECORDS SUMMARY | 2025-03-25 09:42 | XMS_ITS | Clinical Summary ---
Author Organization [facility] Address [address] [place] [address] Phone Care Team Providers Care Lap Runner Name Role Phone Unavailable Primary Care Provider [...] (07/27/2020): 05/26-Unclear diagnosis, Now followed by Dr oSphy Carvajal at [facility], 08/26-no further episodes, 07/17/20-prolonged sz, seen in [...] Contreras, 06/2017-now followed by Dr Carvajal at [facility] 05/11/21-now folloewed by Dr Landers at [facility], he is checking EEG Assessment & Plan (01/19/2020 12:16 PM EDT): Past history of seizure like activity, most recently followed at [facility] 2016- and Dx psychogenic non-epileptic seizures , with normal EEG. Had first event 2013 w/ LOC and transient RIGHT hemiparesis, possible generalized sz, EEG & brain MRI normal. Not Tx with anticonvulsants (Diane, [facility]) Current episode quite convincing for generalized [...] Health Maintenance Due Date Last Done Comments Hepatitis A Vaccines (2 of 2 - 2-dose series) 10/02/2019 04/02/2019 Influenza Vaccines (#1) 2025 04/06/20, 06/06/2020, 04/02/2019, Additional history exists COVID-19 Vaccine ( season) 2025 04/05/2022, 04/14/2021, 09/20/2020, Additional history [...] 05/10, 05/15/2013 Meningococcal Vaccine Completed 08/14/2018, 012 Men B Vaccine Aged Out No longer elig narendra based on patient's age to complete this topic Procedures * Due to [place] Flaviar law, this organization might not be sharing sensitive test results. Procedure Name Priority Date/Time Associated Diagnosis Comments CHLAMYDIA AND GONORRHEA, AMPLIFIED Routine 07/27/2019 10:09 AM EST Right sided abdominal pain from Last 3 Months or Most Recently Relevant to Health Maintenance Results * Due to [place] Flav[employer] law, this organization might not be sharing sensitive test results. * Chlamydia and Gonorrhoea, Amplified (07/27/2019 10:09 AM EST) Chlamydia trachomatis RNA, TMA Not Detected Not Detected 07/28/2019 10:05 AM EST [facility] Neisseria gonorrhoeae, TRISTA Not Detected Not Detected 07/28/2019 10:05 AM EST [facility] Specimen Type URINE 07/28/2019 10:05 AM EST [facility] Urine 07/27/2019 10:0 9 AM EST 07/27/2019 4:51 PM EST us Zahida Barlow NP LAB MICROBIOLOGY - GENERAL ORDER ARCELIA Final Result [facility] from Last 3 Months or Most Recently Relevant to Health Maintenance
--- OUTSIDE RECORDS SUMMARY | 2025-03-25 09:42 | XMS_ITS | Clinical Summary ---
Author Organization [facility] Address [address] [place] [address] Care Team Providers Care Valve Seater Operator Name Role Phone Self, Referred Primary Care [...] so, obtain the minor's consent prior to disclosure.[facility] Allergies Active Allergy Reactions Criticality Noted [...] Plan of Treatment Not on file Insurance [facility] MEDICAID Care Teams Valve Seater Operator Relationship Specialty Start Date End Date Self, Referred [address] [place] [address] PCP - General 12/13/16
--- OUTSIDE RECORDS SUMMARY | 2025-03-25 09:42 | XMS_ITS | Encounter Summary ---
Author Organization [facility] Address [address] [place] [address] Phone Care Team Providers Care Workforce Planning Analyst Name Role Phone Joselin Soto NP Primary Care Provider [phone] Encounter Details Date Type Department Care Team (Late st Contact Info) Description 01/16/2017 Conversion Encounter [facility] - [address], [address] [place] [address] Joselin Soto NP [address] [place] [address] Social History Tobacco Use Types Packs/Day Years [...] on filedocumented in this encounter Care Teams Workforce Planning Analyst Relationship Specialty Start Date End Date Joselin Soto NP [address] [place] [address] PCP - General 07/31/16 01/29/24 documented as of this encounter
--- OUTSIDE RECORDS SUMMARY | 2025-03-25 09:42 | XMS_ITS | Clinical Summary ---
Author Organization [facility] ity Address [address] [place] [address] Care Team Providers Care Product Merchandiser Name Role Phone Unavailable Primary Care Provider [...] HPV Vaccines (1 - 3-dose series) 02/18/2016 DTaP,Tdap,and Td Vaccines (1 - Tdap) 02/18/2020 Hepatitis B Vaccines (1 of 3 - 19+ 3-dose series) 02/18/2020 Cervical Cancer Screening: P ap Smear 2022 Depression Screening 06/10/2024 COVID-19 Vaccine ( - 2023-2 5 season) 2025 Influenza Vaccine (#1) 2025 RSV Immunization Adult Patie nts (1 - 1-dose 75+ series) 02/18/2076 HIB Vaccines Aged Out No longer eligi [...] patient's age to complete this topic Meningococcal B Vaccine Aged Out No l onger eligible based on patient's age to complete [...]
--- OUTSIDE RECORDS SUMMARY | 2025-03-25 09:42 | XMS_ITS | Clinical Summary ---
Author Organization [facility] Address [address] [address] Phone Care Team Providers Care Gas Station Cashier Name Role Phone Chilango Dozier MD Primary Care Provider [phone] Allergies Active Allergy Reactions Criticality Noted Date Comments Amoxicillin 07/28/2021 Cefadroxil 04/26/2017 Peanut 12/13/2016 Medications cyanocobalamin 100 MCG tablet Activ e terconazole (TERAZOL 3) 0.8 % vaginal creamIndication s:Yeast infection Place 1 applicator vaginally nightly at bedtime. 20 g 0 Active ferrous sulfate 325 mg (65 mg kenaitze iron) tablet Take 325 mg by mouth [...] antepartum period 07/28/2021 Overview (08/29/2021): Diagnosis: [facility] OB: Guseh MFCC provider: Referring Provider: Rudy Glynn at [facility] Ped Cardio Primary SHOE HANDLER: Richard Carrillo at [facility] OBGYN Delivery Plan: NICU Plan: Delivery is [...] for genetic testing will be obtained. The infant will be assessed and stabilized by the [...] The baby will be transferred to the [facility] CICU 8S for further management. An echocardiogram will be done shortly after and the Cardiac ICU team will determine timing of surgical intervention based on the baby's clinical status and echocardiography findings. Feeding: I reviewed the benefits of breast milk, the importance of early pumping after delivery (< 6 hours), and the availability of [facility] consultants to provide assistance for initiation of pumping. Genetic Counselor: ?? Deb Ballesteros Genetic Testing Elected Declined Results Notes Carrier Screening [] [x] Aneuploidy Screening [x] [] Low risk for aneuploidy and 22q Single Gene Screening [] [] NA Not offered Diagnostic Testing [] [x] Cord Blood [x] [] Plan: Collect sodium heparin Microarray and DNA banking Kit for pick-up in [facility] History of seizure 07/28/2021 Overview (07/28/2021): Not currently on any medications Supervision of high risk in third trim levi 07/28/2021 Overview (08/08/2021): Primary problem: Past OB history: Planned mode of delivery: Planned date/GA of delivery: Important issues for people to know: 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 Neurologist in [place] Peanut allergy 07/28/2021 Overview (07/28/2021): Carries Epi [...] SMOKING Hx and SMOKELESS TOBACCO SCREENING 2014 HEPATITIS C SCREENING 2019 HEPATITIS A VACCINES [...] HIV ONE-TIME SCREENING (18-65 YEARS) Completed 02/16/2021 MENINGOCOCCAL VACCINES (B) Aged Out N o longer eligible based on patient's age to complete this topic Medical Devices Not on file Procedures Procedure Name Priority Date/Time Associated Diagnosis Comments CHLAMYDIA TRACHOMATIS NUCLEIC ACID DETECTION Routine 07/14/2021 from Last 3 Months or Most Recently Relevant to Health Maintenance Results * Chlamydia trachomatis nucleic acid detection (07/14/2021) CHLAMYDIA - EXTERNAL Neg [facility] Provider NON CULTURE MICROBIOLOGY Final Result from Last 3 Months or Most Recently Relevant to Health Maintenance Insurance ACO ACO ACO ACO ACO ACO ACO ACO ACO Advance Directives For more information, please contact: [phone] (9AM - 5PM [place], Saturday-Saturday) * Full Code (Latest Code Status on File) Date Activated Date Inactivated Comments 09/05/2021 4:55 AM Question Answer Comments Code Status Confirmed With: Patient Care Teams Gas Station Cashier Relationship Specialty Start Date End Date Chilango Dozier MD [address] [place] [address] PCP - General Internal Medicine 08/23/21 Additional Source Comments The information contained in this document represents components of the legal health record. It is not the complete legal health record.[facility]
--- OUTSIDE RECORDS SUMMARY | 2025-03-25 09:42 | XMS_ITS | Encounter Summary ---
Author Organization [facility] Address [address] [place] [address] Phone Care Team Providers Care Visual Display Manager Name Role Phone Joselin Soto NP Primary Care Provide r Pcp, Unknown Primary Care Provider Chilango Turner MD Primary Care Provider [phone] Encounter Details Date Type Department Care Team (Latest Contact Info) Description 09/04/2019 Transcribe Orders Virtual Department [address] [place] [address] Gabby Weldon MD 193 [facility] 2 [place] [address] [email or web address] Chest pain, unspecified type (Primary Dx) [...] BPM [facility] Atrial Rate 93 BPM [facility] W[place] Interval 156 ms [facility] QRS Duration 80 ms [facility] QT Interval 354 ms [facility] QTC Interval 440 ms [facility] P [place] 22 degrees [facility] R Wave [place] 78 degrees [facility] T Wave [place] 30 degrees [facility] 09/04/2019 9:52 AM EDT [...] documented as of this encounter Care Teams Visual Display Manager Relationship Specialty Start Date End Date Joselin Soto NP [address] [place] [address] [email or web address] PCP - General Family Medicine 08/06/18 07/26/21 Pcp, Unknown PCP - General 07/27/21 08/22/21 Chilango Dozier MD [address] [place] [address] PCP - General Internal Medicine 08/23/21 documented as of this encounter Additional Source Comments The information contained in this document represents components of the legal health record. It is not the complete legal health record.[facility]
== END 2025-03-25 09:18 | disposition home or self-care (01) ==
LOC: HO.HGI 08:50
PROVIDERS: PCP Internal Medicine; Visit Provider Nurse Practitioner Family
DX: R76.89 Other specified abnormal immunological findings in serum (principal); K21.9 Gastro-esophageal reflux disease without esophagitis; K76.0 Fatty (change of) liver, not elsewhere classified; R10.13 Epigastric pain
CPT/HCPCS: 99214

== ENCOUNTER 2025-05-11 08:03 | Outpatient (AMB) | payer OTHER, SELFPAY ==
--- OUTSIDE RECORDS SUMMARY | 2025-05-11 08:09 | XMS_ITS | Encounter Summary ---
Author Organization [facility] Address [address] [place] [address] Phone Care Team Providers Care Pulmonary Function Technologist Name Role Phone Joselin Soto NP Primary Care Provider [phone] Encounter Details Date Type Department Care Team (Late st Contact Info) Description 01/16/2017 Conversion Encounter [facility] Pediatrics - [address], [address] [place] [address] Joselin Soto NP [address] [place] [address] Social History Tobacco Use Types Packs/Day Years [...] on filedocumented in this encounter Care Teams Pulmonary Function Technologist Relationship Specialty Start Date End Date Joselin Soto NP [address] [place] [address] PCP - General 07/31/16 01/29/24 documented as of this encounter
--- OUTSIDE RECORDS SUMMARY | 2025-05-11 08:09 | XMS_ITS | Clinical Summary ---
Author Organization [facility] Address [address] [address] Phone Care Team Providers Care Manager Food Beverage Name Role Phone Chilango Dozier MD Primary Care Provider [phone] Allergies Active Allergy Reactions Criticality Noted Date Comments Amoxicillin 07/28/2021 Cefadroxil 04/26/2017 Peanut 12/13/2016 Medications cyanocobalamin 100 MCG tablet Activ e terconazole (TERAZOL 3) 0.8 % vaginal creamIndication s:Yeast infection Place 1 applicator vaginally nightly at bedtime. 20 g 0 Active ferrous sulfate 325 mg (65 mg tatitlek iron) tablet Take 325 mg by mouth [...] antepartum period 07/28/2021 Overview (08/29/2021): Diagnosis: [facility]HS [facility] OB: Guseh MFCC provider: Referring Provider: Rudy Glynn at [facility] Ped Cardio Primary PRODUCTION HELPER: Richard Carrillo at [facility] OBGYN Delivery Plan: NICU Plan: Delivery [...] The baby will be transferred to the [facility] CICU 8S for further management. An echocardiogram will be done shortly after and the Cardiac ICU team will determine timing of surgical intervention based on the baby's clinical status and echocardiography findings. Feeding: I reviewed the benefits of breast milk, the importance of early pumping after delivery (< 6 hours), and the availability of [facility] consultants to provide assistance for initiation of pumping. Genetic Counselor: ?? Deb Ballesteros Genetic Testing Elected Declined Results Notes Carrier Screening [] [x] Aneuploidy Screening [x] [] Low risk for aneuploidy and 22q Single Gene Screening [] [] NA Not offered Diagnostic Testing [] [x] Cord Blood [x] [] Plan: Collect sodium heparin Microarray and DNA banking Kit for pick-up in [facility] History of seizure 07/28/2021 Overview (07/28/2021): Not currently on any medications Supervision of high risk in third trim levi 07/28/2021 Overview (08/08/2021): Primary problem: Past OB history: Planned mode of delivery: Planned date/GA of delivery: Important issues for people to know: 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 Neurologist in [place] Peanut allergy 07/28/2021 Overview (07/28/2021): Carries Epi [...] acid detection (07/14/2021) CHLAMYDIA - EXTERNAL Neg us Historical Provider LAB GENERAL ORDERABLES Fi nal Result from Last 3 Months or Most Recently Relevant to Health Maintenance Insurance ACO ACO ACO ACO ACO ACO ACO ACO ACO Advance Directives For more information, please contact: [phone] (9AM - 5PM [place]el[place], Saturday-Saturday) * Full Code (Latest Code Status on File) Date Activated Date Inactivated Comments 09/05/2021 4:55 AM Question Answer Comments Code Status Confirmed With: Patient Care Teams Manager Food Beverage Relationship Specialty Start Date End Date Chilango Dozier MD [address] [place] [address] PCP - General Internal Medicine 08/23/21 Additional Source Comments The information contained in this document represents components of the legal health record. It is not the complete legal health record.[facility]
--- OUTSIDE RECORDS SUMMARY | 2025-05-11 08:09 | XMS_ITS | Clinical Summary ---
Author Organization [facility] ity Address [address] [place] [address] Care Team Providers Care Concrete Stone Fabricating Supervisor Name Role Phone Unavailable Primary Care Provider [...] Depression Screening 06/10/2024 COVID-19 Vaccine (1 - 2024-2 6 season) 2025 Influenza Vaccine (#1) 2025 RSV [...]
--- OUTSIDE RECORDS SUMMARY | 2025-05-11 08:09 | XMS_ITS | Encounter Summary ---
Author Organization [facility] Address [address] [place] [address] Phone Care Team Providers Care Specialist Employee Labor Relations Name Role Phone Joselin Soto CRAFT COORDINATOR Primary Care Provider [phone] Reason for Visit * Reason Comments Med Refill Encounter Details Date Type Department Care Team ([facility] st Contact Info) Description 09/28/2018 Refill [facility] - [place] [address] [place] [address] Joselin Soto NP [address] [place] [address] Encounter for initial prescription of contraceptive pills [...] pills documented in this encounter Care Teams Specialist Employee Labor Relations Relationship Specialty Start Date End Date Joselin Soto NP [address] [place] [address] PCP - General 07/31/16 01/29/24 documented as of this encounter
--- OUTSIDE RECORDS SUMMARY | 2025-05-11 08:09 | XMS_ITS | Encounter Summary ---
Author Organization [facility] Address [address] [place] [address] Phone Care Team Providers Care Tank Driver Name Role Phone Joselin Soto NP Primary Care Provide r Pcp, Unknown Primary Care Provider Chilango Turner MD Primary Care Provider [phone] Encounter Details Date Type Department Care Team (Latest Contact Info) Description 09/04/2019 Transcribe Orders Virtual Department [address] [place] [address] Gabby Weldon MD 193 [facility] 2 [place] [address] [email or web address] Chest pain, unspecified type (Primary Dx) [...] BPM [facility] Atrial Rate 93 BPM [facility] [place] Interval 156 ms [facility] QRS Duration 80 ms [facility] QT Interval 354 ms [facility] QTC Interval 440 ms [facility] P [place] 22 degrees [facility] R Wave [place] 78 degrees [facility] T Wave [place] 30 degrees [facility] 09/04/2019 9:52 AM EDT [...] documented as of this encounter Care Teams Tank Driver Relationship Specialty Start Date End Date Joselin Soto NP [address] [place] [address] [email or web address] PCP - General Family Medicine 08/06/18 07/26/21 Pcp, Unknown PCP - General 07/27/21 08/22/21 Chilango Dozier MD [address] [place] [address] PCP - General Internal Medicine 08/23/21 documented as of this encounter Additional Source Comments The information contained in this document represents components of the legal health record. It is not the complete legal health record.[facility]
--- OUTSIDE RECORDS SUMMARY | 2025-05-11 08:09 | XMS_ITS | Encounter Summary ---
Author Organization [facility] Address [address] [place] [address] Phone Care Team Providers Care Binder Coverstitch Name Role Phone Joselin Soto NP Primary Care Provide r Pcp, Unknown Primary Care Provider Chilango Turner MD Primary Care Provider [phone] Encounter Details Date Type Department Care Team (Late st Contact Info) Description 08/06/2018 Ancillary Orders Virtual Department [address] [place] [address] Karen Viramontes, [facility] 193 [facility], [facility] 2 [place] [address] [email or web address] Abdominal pain, left lower quadrant Social History [...] explain right lower quadrant pain POS - [id number] Narrative 08/07/2018 6:30 PM EST HISTORY: Right [...] explain right lower quadrant pain POS - [id number] us Karen Tomasa Vasquez Ana M MANAGER SHIPPING IM US PEL VIS Final Result * US ABDOMEN LIMITED APPENDIX (ADULT) (08/07/2018 2:47 PM EST) Anatomical Region Laterality Modality Abdomen Ultrasound 08/07/2018 6:26 PM EST Impressions 08/07/2018 6:27 PM EST Appendix not visualized; therefore, appendicitis cannot be excluded. POS [id number] Narrative 08/07/2018 6:27 PM EST COMPARISON: None [...] visualized; therefore, appendicitis cannot be excluded. POS [id number] Karen Viramontes CNP [facility] US ABD OMEN Final Result documented in this encounter Visit Diagnoses Diagnosis Abdominal pain, left lower quadrant Abdominal pain, left lower quadrant Abdominal pain, left lower quadrant documented in this encounter Additional Health Concerns Infection Onset Date Last Indicated Resolved Time Influenza 07/30/2019 07/30/2019 08/06/2019 1:24 AM EST CoV-Risk 10/08/2019 10/08/2019 10/22/2019 1:23 AM EDT documented as of this encounter Care Teams Binder Coverstitch Relationship Specialty Start Date End Date Joselin Soto NP [address] [place] [address] [email or web address] PCP - General Family Medicine 08/06/18 07/26/21 Pcp, Unknown PCP - General 07/27/21 08/22/21 Chilango Dozier MD [address] [place] [address] PCP - General Internal Medicine 08/23/21 documented as of this encounter Additional Source Comments The information contained in this document represents components of the legal health record. It is not the complete legal health record.[facility]
--- OUTSIDE RECORDS SUMMARY | 2025-05-11 08:09 | XMS_ITS | Clinical Summary ---
Author Organization [facility] Address [address] [place] [address] Phone Care Team Providers Care Coiled Tubing Operator Name Role Phone Unavailable Primary Care Provider [...] Now followed by Dr Sophy Carvajal at [facility], 08/26-no further episodes, 07/17/20-prolonged sz, seen [...] Contreras, 06/2017-now followed by Dr Carvajal at [facility] 05/11/21-now folloewed by Dr Landers at [facility], he is checking EEG Assessment & Plan (01/19/2020 12:16 PM EDT): Past history of seizure like activity, most recently followed at [facility] 2016- and Dx psychogenic non-epileptic seizures , with normal EEG. Had first event 2013 w/ LOC and transient RIGHT hemiparesis, possible generalized sz, EEG & brain MRI normal. Not Tx with anticonvulsants (Diane, [facility]) Current episode quite convincing for generalized T/C [...] complete this topic Procedures * Due to [place] [employer] law, this organization might not be sharing sensitive test results. Procedure Name Priority Date/Time Associated Diagnosis Comments CHLAMYDIA AND GONORRHEA, AMPLIFIED Routine 07/27/2019 10:09 AM EST Right sided abdominal pain from Last 3 Months or Most Recently Relevant to Health Maintenance Results * Due to [place] [employer] law, this organization might not be sharing sensitive test results. * Chlamydia and Gonorrhoea, Amplified (07/27/2019 10:09 AM EST) Chlamydia trachomatis RNA, TMA Not Detected Not Detected 07/28/2019 10:05 AM EST [facility] Neisseria gonorrhoeae, TRISTA Not Detected Not Detected 07/28/2019 10:05 AM EST [facility] Specimen Type URINE 07/28/2019 10:05 AM EST [facility] Urine 07/27/2019 10:0 9 AM EST 07/27/2019 4:51 PM EST us Zahida Barlow NP LAB MICROBIOLOGY - GENERAL ORDER ARCELIA Final Result [facility] from Last 3 Months or Most Recently Relevant to Health Maintenance
--- OUTSIDE RECORDS SUMMARY | 2025-05-11 08:10 | XMS_ITS | Clinical Summary ---
Author Organization [facility] Address [address] [place] [address] Care Team Providers Care Search Lead Name Role Phone Self, Referred Primary Care [...] so, obtain the minor's consent prior to disclosure.[facility] Allergies Active Allergy Reactions Criticality Noted Date [...] on file Insurance [address] [place] [address] [place] [facility] MEDICAID Care Teams Search Lead Relationship Specialty Start Date End Date Self, Referred [address] [place] [address] PCP - General 12/13/16
--- OUTSIDE RECORDS SUMMARY | 2025-05-11 08:10 | XMS_ITS | Encounter Summary ---
Author Organization [facility] Address [address] [place] [address] Phone Care Team Providers Care Customer Complaint Clerk Name Role Phone Joselin Soto NP Primary Care Provider [phone] Encounter Details Date Type Department Care Team (Late st Contact Info) Description 01/24/2017 Conversion Encounter [facility] - [address] [address] Social History Tobacco Use Types Packs/Day Years [...] on filedocumented in this encounter Care Teams Customer Complaint Clerk Relationship Specialty Start Date End Date Joselin Soto NP [address] [place] [address] PCP - General 07/31/16 01/29/24 documented as of this encounter
[2025-05-11 08:16] VITALS: BP 102/60; PULSE 73; RESP 16; TEMP 36.8; O2SAT 100; BMI 30.7
--- NOTE | 2025-05-11 08:16 | MHC.PC.OV ---
Vital Signs 05/11/25 08:16 Height 4 ft 11 in Weight 152 lb BMI 30.7 BP 102/60 Blood Pressure Location Rt brachial Position Sitting Respiration 16 Pulse 73 Temp 98.3 F Temp Source Oral Pulse Oximetry (%) 100 Oxygen Delivery Method Room Air Intake Visit Reasons: right ear pain/disc/hearing loss, resched Intake Note: Pt is here today to c/o Rt ear pain/ hearing loss Coding Coordinator Required: No Allergies amoxicillin (AMOXICILLIN) Allergy (Severe, Verified 05/11/25 08:45) Hives cefadroxil (Cefadroxil) Allergy (Severe, Verified 05/11/25 08:45) anaphylaxis peanut (PEANUT) Allergy (Severe, Verified 05/11/25 08:45) LIP, TONGUE SWELLING. Medication List - Last Reconciled 05/11/25 by Bindu Ron MD cholecalciferol (vitamin D3) 50 mcg PO DAILY pantoprazole 20 mg PO DAILY Tobacco use date assessed: 05/11/25 Dental Screening Dental Screen Date: 02/11/25 Did you have a dental visit in the last 12 months?: Yes Did you have a dental problem in the last 6 months where you did not have access to dental care?: No Was dental information given to patient?: Patient has dentist HPI right ear pain/disc/hearing loss, resched HPI Details The patient is a 25 year old individual presenting for evaluation of pain in front of right ear, and a skin lesion on the foot. The patient reports intermittent, sharp pain in front of her right ear that started approximately three months ago. This pain is accompanied by a sensation of the ear being clogged, which sometimes resolves on its own, and is associated with headache mainly over right eye. Denies any accompanying hearing loss The patient has a history of astigmatism, but their glasses are broken and they have not had an eye exam in three years. Due to vision issues, the patient avoids driving at night. The patient has been taking Tylenol and 800 mg of ibuprofen for pain without relief. Separately, the patient reports an itchy skin lesion on the plantar aspect of left foot that has been present for a year, which improves and then recurs. [facility] Medical History (Updated 05/11/25 @ 09:06 by Bindu Ron MD) Astigmatism NAFL (nonalcoholic fatty liver) GERD (gastroesophageal reflux disease) Hypertriglyceridemia History of anemia Screening for tuberculosis Rash and nonspecific skin eruption Numbness and tingling in left hand Lumbar back pain with radiculopathy affecting right lower extremity ADHD Serum total bilirubin elevated Pilonidal abscess Positive hepatitis C antibody test Food allergy, peanut Lumbago with sciatica, right side Anxiety and depression Bipolar 1 disorder Insomnia Seizures Surgical History History of excision of pilonidal cyst (07/03/22) History of wisdom tooth extraction H/O removal of cyst Family History Father PTSD (post-traumatic stress disorder) High cholesterol Mental health disorder Mother Loss of hearing Social History Household Members: Family Both parents involved: Yes Housing: House Are you a primary youth career specialist to a significant other at home: No Do you presently have visiting nurse or other home services: No Alcohol intake: never Patient Tobacco Use Status: Never used Tobacco e-Cigarette/Vaping Use: Never Used Substance Use Type: Marijuana Trauma History: none voiced Special beatriz needs: No Agree to transfusion: Yes service: No Current occupational status: unemployed Current occupation: rt handed Cognitive needs: No Hearing needs: No Vision needs: Yes Female Reproductive History Menstrual Age of Menarche: 10 Questionnaire PHQ-9 Over the last 2 weeks, how often have you been bothered by any of the following problems? 1. Little interest or pleasure in doing things: not at all 2. Feeling down, depressed, or hopeless: not at all 3. Trouble falling or staying asleep, or sleeping too much: not at all 4. Feeling tired or having little energy: not at all 5. Poor appetite or overeating: not at all 6. Feeling bad about yourself - or that you are a failure or have let yourself or your family down: not at all 7. Trouble concentrating on things, such as reading the newspaper or watching television: not at all 8. Moving or speaking so slowly that other people could have noticed. Or the opposite - being so fidgety or restless that you have been moving around a lot more than usual: not at all 9. Thoughts that you would be better off or of hurting yourself in some way: not at all Total score: 0 Depression Screening Interpretation: Negative Depression Screening Done: Yes Source: Developed by Drs. Kodi Ferreira, Sumaya Mckoy, Inocente Melara and colleagues, with an educational hayden from [employer]. Thrive Questionnaire Date Thrive assessed: 02/11/25 I am a: Patient What is your living situation today?: I have a steady place to live Within the past 12 months, did the food you bought not last and you didn't have the money to get more?: Never true Within the past 12 months, did you worry whether your food would run out before you got money to buy more?: Never true Do you have trouble paying for medicines?: No Do you have trouble getting transportation to medical appointments?: No Do you have trouble paying your heating and electricity bill?: No Do you have trouble taking care of your child, family member or friend?: No Do you have trouble with day-to-day activities such as bathing, preparing meals, shopping, managing finances, etc.?: No Are you currently unemployed and looking for a job?: I choose not to answer this question Are you interested in more education?: I choose not to answer this question Please select the resources that you would like help with: None Currently or been in a relationship where the following occur: No concerns reported THRIVE Score: 0 AUDIT C Alcohol Use Questionnaire (AUDIT-C) 1. How often do you have a drink containing alcohol?: Never Total Score: 0 Score Reviewed/Action Taken: Yes ALEXANDRE-7 AMB Questionnaire ALEXANDRE-7 Date ALEXANDRE - 7 assessed: 05/11/25 Feeling nervous, anxious, or on edge: 0 = Not at all Not being able to stop or control worryin = Not at all Worrying too much about different things: 0 = Not at all Trouble relaxin = Not at all Being so restless that it is hard to sit still: 0 = Not at all Becoming easily annoyed or irritable: 0 = Not at all Feeling afraid as if something awful might happen: 0 = Not at all Total ALEXANDRE-7 score (0-4 normal; 5-9 mild; 10-14 moderate; 15-21 severe): 0 Source: Developed by Sumaya Nazario B.W. Ean, Inocente Melara and colleagues, with an educational hayden from [employer]. Review of Systems Const Denies body aches, Denies fever(s), Denies headache(s) and Denies weakness Eyes Denies change in vision, Denies eye discharge, Denies itchy eyes and Reports photophobia ENT Denies dizziness, Denies headache(s), Denies nasal congestion, Denies nasal discharge and Denies sore throat Card Denies chest pain, Denies lightheadedness, Denies palpitations and Denies dyspnea Resp Denies chest congestion, Denies cough, Denies dyspnea and Denies wheezing GI Denies abdominal pain, Denies change in bowel habits and Denies heartburn Denies hematuria, Denies urinary frequency, Denies dysuria and Denies urinary urgency Skin/Breast Reports as per HPI, Denies breast pain, Denies breast mass and Denies lesions Neuro Denies dizziness, Denies headache(s) and Denies weakness Endo Denies polydipsia, Denies polyuria and Denies palpitations Delgado/Lymph Denies easy bruising Aller/Immun Denies itchy eyes, Denies seasonal rhinorrhea and Denies wheezing Physical exam (Primary Care) Vital Signs: Last Vital Signs Temp 98.3 F 05/11/25 08:16 Pulse 73 05/11/25 08:16 Resp 16 05/11/25 08:16 BP 102/60 05/11/25 08:16 Pulse Ox 100 05/11/25 08:16 Oxygen Delivery Method Room Air 05/11/25 08:16 BMI result Body Mass Index 30.7 Tobacco/Smoking Status: Tobacco use Status Tobacco use date assessed 05/11/25 05/11/25 08:19 Patient Tobacco Use Status Never used Tobacco 05/11/25 08:19 e-Cigarette/Vaping Use Never Used 05/11/25 08:19 Depression Screening Interpretation: Negative Thrive Assessment: Date of Thrive Assessment Date Thrive assessed 02/11/25 05/11/25 08:19 Currently or been in a relationship where the following occur: No concerns reported Narrative - HEENT: Normocephalic, atraumatic, External auditory canals are clear bilaterally with no cerumen. No pain on pinna manipulation. - Tenderness to palpation over the right temporomandibular joint and associated musculature. - Full range of jaw motion without pain on opening or closing. - Integumentary: Examination of the under aspect of left foot showed dry cracking erythematous patch with peeling skin Eyes Direct Ophthalmoscopy: photophobia Neck Neck: Yes full ROM, Yes no lymphadenopathy and Yes supple Coding Level of Care Code Est Pt Level 4 (36826) Diagnoses Headache above the eye region R51.9 Tinea pedis of left foot B35.3 Astigmatism, unspecified laterality, unspecified type H52.209 Astigmatism type: unspecified Laterality: unspecified laterality Assessment & Plan Assessment & Plan (1) Headache above the eye region: Code(s): R51.9 - Headache, unspecified Plan: 1. Examination revealed a normal ear but tenderness over the right TMJ, suggesting referred pain. The plan is to discontinue the high-dose oral ibuprofen and instead use a topical NSAID cream, such as Advil or Aleve, massaged into the tender area. The patient was counseled not to take oral NSAIDs concurrently with the topical treatment to avoid overdose. The headaches are likely multifactorial, secondary to TMJ dysfunction and significant eye strain from uncorrected astigmatism. Addressing the underlying TMJ pain with topical medication may provide relief. The patient was strongly advised to obtain a new pair of glasses and undergo an eye examination. (2) Tinea pedis of left foot: Code(s): B35.3 - Tinea pedis Plan: The chronic, itchy rash on the foot is consistent with a fungal infection with recurrent reinfection. A prescription for an terbinafine cream will be sent to the patient's pharmacy ([facility]). The patient was educated on the importance of treating footwear, such as with an antifungal spray, and proper foot hygiene to prevent recurrence. (3) Astigmatism: Code(s): H52.209 - Unspecified astigmatism, unspecified eye Category: Medical Qualifiers: Astigmatism type: unspecified Laterality: unspecified laterality Qualified Code(s): H52.209 - Unspecified astigmatism, unspecified eye Plan: The patient has a known history of astigmatism but is not using corrective lenses as their glasses are broken. This is a likely contributor to the headaches. The patient was strongly encouraged to schedule a comprehensive eye exam. Information was provided on local optometry offices, and the patient was advised to confirm their insurance ([employer]) is accepted. Patient was informed and verbally consented to the use of an ambient scribe for clinic note documentation during this visit. Medications: New terbinafine HCl 1% (Lamisil AT) 1 appl topical BID 30 grams 1RF 12 days
== END 2025-05-11 09:09 | disposition home or self-care (01) ==
LOC: HO.HMCC 08:03
PROVIDERS: PCP Internal Medicine; Visit Provider Internal Medicine
DX: R51.9 Headache, unspecified (principal); B35.3 Tinea pedis; H52.209 Unspecified astigmatism, unspecified eye

== ENCOUNTER → 2025-05-11 08:03 | Outpatient (BNVA) | payer OTHER, SELFPAY | PROVIDERS: PCP Internal Medicine; Visit Provider Internal Medicine | DX: H92.01 Otalgia, right ear (principal); L98.9 Disorder of the skin and subcutaneous tissue, unspecified; R51.9 Headache, unspecified; B35.3 Tinea pedis; H52.209 Unspecified astigmatism, unspecified eye | CPT/HCPCS: 99212 ==

== ENCOUNTER 2025-06-01 08:29 | Outpatient (REF) | payer OTHER, SELFPAY ==
--- NOTE | ~2025-06-01 | US_ITS ---
EXAMINATION: US ABDOMEN LIMITED WITH LIVER ELASTOGRAPHY HISTORY: K76.0 - Fatty (change of) liver, not elsewhere classified TECHNIQUE: Real-time grayscale ultrasound imaging of the right upper quadrant was performed and images were reviewed. COMPARISON: Comparison is made with the prior examination dated 01/30/2024. FINDINGS: Liver: The right lobe of the liver measures 15.5 cm in size. The left lobe of the liver measures 10.0 cm in size. The liver demonstrates normal homogeneous echotexture. No focal mass or intrahepatic biliary ductal dilatation is identified. There is normal hepatopedal flow in the portal vein. Ultrasound elastography of the liver was performed with 10 separate measurements of the liver parenchyma with the patient in the supine position. Measurements were obtained approximately 2 cm below Niurka's capsule and perpendicular to the capsule. The median shear wave velocity is 1.51 m/s (previously 1.81 m/s). The interquartile range/median (IQR/median) is 0.06. Gallbladder and biliary tree: The gallbladder is unremarkable, without evidence of calculi, wall thickening, or pericholecystic fluid. There is no sonographic Gardner sign. The common bile duct is normal in caliber measuring 5 mm in diameter. Right Kidney: The right kidney measures 10.7 cm in length. The right kidney is unremarkable, without evidence of masses, hydronephrosis, or calculi. Pancreas: The pancreatic head, neck, and body are unremarkable. The pancreatic tail is obscured by bowel gas. Abdominal aorta and inferior vena cava: The visualized portions of the abdominal aorta and inferior vena cava are normal in caliber. There is no free fluid in the right upper quadrant. US/US abdomen estrella w elastography IMPRESSION: Unremarkable right upper quadrant ultrasound. The median shear wave velocity in the liver is 1.51 m/s, corresponding to a median liver stiffness of 6.94 kPa. The IQR/median value is 0.06. This is indicative of a quality data set. Findings are indicative of a low elastography value which rules out advanced chronic liver disease in asymptomatic patients. REFERENCE: Society of Radiologists in Ultrasound Liver Stiffness Thresholds (2020): LIVER STIFFNESS THRESHOLDS: *Shear wave velocity less than 1.3 m/s (Liver Stiffness equal or less than 5 kPa): High probability of being normal. *Shear wave velocity less than 1.7 m/s (Liver Stiffness less than 9 kPa): In the absence of other known clinical signs, rules out compensated advanced chronic liver disease. *Shear wave velocity between 1.7-2.1 m/s (Liver Stiffness 9-13 kPa): Suggestive of compensated advanced chronic liver disease but need further test for confirmation. *Shear wave velocity between 2.1-2.4 m/s (Liver Stiffness 13-17 kPa): Rules in compensated advanced chronic liver disease. *Shear wave velocity greater than 2.4 m/s (Liver Stiffness over 17 kPa): Suggestive of clinically significant portal hypertension. QUALITY OF DATA SET: *IQR/Median value equal or less than 0.15 implies a quality data set. *IQR/Median value over 0.15 implies a poor quality data set. SIGNIFICANT CHANGE FROM PRIOR EXAM: Significant change if liver stiffness measurement is 10% or greater from prior exam. OTHER CONSIDERATIONS: The stage of liver fibrosis may be overestimated in the setting of acute hepatitis, liver inflammation, elevated liver function tests, hepatic vascular congestion, obstructive cholestasis, non-fasting state, and infiltrative diseases such as amyloidosis and lymphoma. In some patients with NAFLD, the liver stiffness thresholds for compensated advanced chronic liver disease may be lower. In causes other than viral hepatitis and NAFLD, liver stiffness thresholds are not well established. Electronically signed by: Kodi Macias MD 06/01/2025 09:39 AM [facility]
--- OUTSIDE RECORDS SUMMARY | 2025-06-01 08:38 | XMS_ITS | Clinical Summary ---
Author Organization [facility] Address [address] [place] [address] Phone Care Team Providers Care Shale Miner Blasting Name Role Phone Unavailable Primary Care Provider [...] Now followed by Dr Sophy Carvajal at [facility], 08/26-no further episodes, 07/17/20-prolonged sz, seen [...] Contreras, 06/2017-now followed by Dr Carvajal at [facility] 05/11/21-now folloewed by Dr Landers at [facility], he is checking EEG Assessment & Plan (01/19/2020 12:16 PM EDT): Past history of seizure like activity, most recently followed at [facility] 2016- and Dx psychogenic non-epileptic seizures , with normal EEG. Had first event 2013 w/ LOC and transient RIGHT hemiparesis, possible generalized sz, EEG & brain MRI normal. Not Tx with anticonvulsants (Diane, [facility]) Current episode quite convincing for generalized [...] complete this topic Procedures * Due to [place] [employer] law, this organization might not be sharing sensitive test results. Procedure Name Priority Date/Time Associated Diagnosis Comments CHLAMYDIA AND GONORRHEA, AMPLIFIED Routine 07/27/2019 10:09 AM EST Right sided abdominal pain from Last 3 Months or Most Recently Relevant to Health Maintenance Results * Due to [place] law, this organization might not be sharing sensitive test results. * Chlamydia and Gonorrhoea, Amplified (07/27/2019 10:09 AM EST) Chlamydia trachomatis RNA, TMA Not Detected Not Detected 07/28/2019 10:05 AM EST [facility] Neisseria gonorrhoeae, TRISTA Not Detected Not Detected 07/28/2019 10:05 AM EST [facility] Specimen Type URINE 07/28/2019 10:05 AM EST [facility] Urine 07/27/2019 10:0 9 AM EST 07/27/2019 4:51 PM EST us Zahida Barlow NP LAB MICROBIOLOGY - GENERAL ORDER ARCELIA Final Result [facility] from Last 3 Months or Most Recently Relevant to Health Maintenance
--- OUTSIDE RECORDS SUMMARY | 2025-06-01 08:38 | XMS_ITS | Encounter Summary ---
Author Organization [facility] Address [address] [place] [address] Phone Care Team Providers Care Neon Pumper Name Role Phone Joselin Soto NP Primary Care Provider [phone] Encounter Details Date Type Department Care Team (Late st Contact Info) Description 01/24/2017 Conversion Encounter [facility] - [address] [address] Social History Tobacco Use Types Packs/Day Years [...] on filedocumented in this encounter Care Teams Neon Pumper Relationship Specialty Start Date End Date Joselin Soto NP [address] [place] [address] PCP - General 07/31/16 01/29/24 documented as of this encounter
--- OUTSIDE RECORDS SUMMARY | 2025-06-01 08:38 | XMS_ITS | Clinical Summary ---
Author Organization [facility] it[facility] Address [address] [place] [address] Care Team Providers Care Conductor Pullman Name Role Phone Unavailable Primary Care Provider [...]
--- OUTSIDE RECORDS SUMMARY | 2025-06-01 08:38 | XMS_ITS | Clinical Summary ---
Author Organization [facility] Address [address] [place] [address] Care Team Providers Care Optical Effects Camera Operator Name Role Phone Self, Referred Primary [...] so, obtain the minor's consent prior to disclosure.[facility] Allergies Active Allergy Reactions Criticality Noted [...] Plan of Treatment Not on file Insurance [facility] MEDICAID Care Teams Optical Effects Camera Operator Relationship Specialty Start Date End Date Self, Referred [address] [place] [address] PCP - General 12/13/16
--- OUTSIDE RECORDS SUMMARY | 2025-06-01 08:38 | XMS_ITS | Encounter Summary ---
Author Organization [facility] Address [address] [place] [address] [place] [address] Phone Care Team Providers Care Financial Underwriter Name Role Phone Joselin Soto NP Primary Care Provide r Pcp, Unknown Primary Care Provider Chilango Turner MD Primary Care Provider [phone] Encounter Details Date Type Department Care Team (Late st Contact Info) Description 08/06/2018 Ancillary Orders Virtual Department [address] [place] [address] Karen Viramontes, [facility] [address] [facility], [facility] [address] [place] [address] [email or web address] Abdominal pain, left lower quadrant Social History [...] explain right lower quadrant pain POS - [id number] Narrative 08/07/2018 6:30 PM EST HISTORY: Right [...] explain right lower quadrant pain POS - [id number] us Karen Tomasa Vasquez Ana M FORESTRY PATROLMAN IM US PEL VIS Final Result * US ABDOMEN LIMITED APPENDIX (ADULT) (08/07/2018 2:47 PM EST) Anatomical Region Laterality Modality Abdomen Ultrasound 08/07/2018 6:26 PM EST Impressions 08/07/2018 6:27 PM EST Appendix not visualized; therefore, appendicitis cannot be excluded. POS [id number] Narrative 08/07/2018 6:27 PM EST COMPARISON: None [...] visualized; therefore, appendicitis cannot be excluded. POS [id number] Karen Viramontes CNP [facility] US ABD OMEN Final Result documented in this encounter Visit Diagnoses Diagnosis Abdominal pain, left lower quadrant Abdominal pain, left lower quadrant Abdominal pain, left lower quadrant documented in this encounter Additional Health Concerns Infection Onset Date Last Indicated Resolved Time Influenza 07/30/2019 07/30/2019 08/06/2019 1:24 AM EST CoV-Risk 10/08/2019 10/08/2019 10/22/2019 1:23 AM EDT documented as of this encounter Care Teams Financial Underwriter Relationship Specialty Start Date End Date Joselin Soto NP [address] [place] [address] [email or web address] PCP - General Family Medicine 08/06/18 07/26/21 Pcp, Unknown PCP - General 07/27/21 08/22/21 Chilango Dozier MD [address] [place] [address] PCP - General Internal Medicine 08/23/21 documented as of this encounter Additional Source Comments The information contained in this document represents components of the legal health record. It is not the complete legal health record.[facility]
--- OUTSIDE RECORDS SUMMARY | 2025-06-01 08:38 | XMS_ITS | Encounter Summary ---
Author Organization [facility] Address [address] [place] [address] Phone Care Team Providers Care Solar Energy Engineer Name Role Phone Joselin Soto NP Primary Care Provide r Pcp, Unknown Primary Care Provider Chilango Turner MD Primary Care Provider [phone] Encounter Details Date Type Department Care Team (Latest Contact Info) Description 09/04/2019 Transcribe Orders Virtual Department [address] [place] [address] Gabby Weldon MD [address] [facility] [address] [place] [address] [email or web address] Chest pain, unspecified type (Primary Dx) [...] BPM [facility] Atrial Rate 93 [facility] MD Interval 156 ms [facility] QRS Duration 80 ms [facility] QT Interval 354 ms [facility] QTC Interval 440 ms [facility] P [place] 22 degrees [facility] R Wave [place] 78 degrees [facility] T Wave [place] 30 degrees [facility] 09/04/2019 9:52 AM EDT [...] documented as of this encounter Care Teams Solar Energy Engineer Relationship Specialty Start Date End Date Joselin Soto NP [address] [place] [address] [email or web address] PCP - General Family Medicine 08/06/18 07/26/21 Pcp, Unknown PCP - General 07/27/21 08/22/21 Chilango Dozier MD [address] [place] [address] PCP - General Internal Medicine 08/23/21 documented as of this encounter Additional Source Comments The information contained in this document represents components of the legal health record. It is not the complete legal health record.[facility]
--- OUTSIDE RECORDS SUMMARY | 2025-06-01 08:38 | XMS_ITS | Clinical Summary ---
Author Organization [facility] Address [address] [address] Phone Care Team Providers Care Ui Developer Designer Name Role Phone Chilango Dozier MD Primary Care Provider [phone] Allergies Active Allergy Reactions Criticality Noted Date Comments Amoxicillin 07/28/2021 Cefadroxil 04/26/2017 Peanut 12/13/2016 Medications cyanocobalamin 100 MCG tablet Activ e terconazole (TERAZOL 3) 0.8 % vaginal creamIndication s:Yeast infection Place 1 applicator vaginally nightly at bedtime. 20 g 0 Active ferrous sulfate 325 mg (65 mg [place] iron) tablet Take 325 mg by mouth [...] antepartum period 07/28/2021 Overview (08/29/2021): Diagnosis: [facility] OB: G[facility] provider: Referring Provider: Rudy Glynn at [facility] Ped Cardio Primary WELDING TESTER: Richard Carrillo at [facility] OBGYN Delivery Plan: NICU Plan: Delivery [...] The baby will be transferred to the [facility] CICU 8S for further management. An echocardiogram will be done shortly after and the Cardiac ICU team will determine timing of surgical intervention based on the baby's clinical status and echocardiography findings. Feeding: I reviewed the benefits of breast milk, the importance of early pumping after delivery (< 6 hours), and the availability of [facility] consultants to provide assistance for initiation of pumping. Genetic Counselor: ?? Deb Ballesteros Genetic Testing Elected Declined Results Notes Carrier Screening [] [x] Aneuploidy Screening [x] [] Low risk for aneuploidy and 22q Single Gene Screening [] [] NA Not offered Diagnostic Testing [] [x] Cord Blood [x] [] Plan: Collect sodium heparin Microarray and DNA banking Kit for pick-up in [facility] History of seizure 07/28/2021 Overview (07/28/2021): Not currently on any medications Supervision of high risk in third trim levi 07/28/2021 Overview (08/08/2021): Primary problem: Past OB history: Planned mode of delivery: Planned date/GA of delivery: Important issues for people to know: 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 Neurologist in [place] Peanut allergy 07/28/2021 Overview (07/28/2021): Carries Epi [...] Advance Directives For more information, please contact: [phone] (9AM - 5PM [place], Saturday-Saturday) * Full Code (Latest Code Status on File) Date Activated Date Inactivated Comments 09/05/2021 4:55 AM Question Answer Comments Code Status Confirmed With: Patient Care Teams Ui Developer Designer Relationship Specialty Start Date End Date Chilango Dozier MD [address] [place] [id number] PCP - General Internal Medicine 08/23/21 Additional Source Comments The information contained in this document represents components of the legal health record. It is not the complete legal health record.[facility]
--- OUTSIDE RECORDS SUMMARY | 2025-06-01 08:38 | XMS_ITS | Encounter Summary ---
Author Organization [facility] Address [address] [place] [id number] Phone Care Team Providers Care Automation Specialist Name Role Phone Joselin Soto BANDER OPERATOR Primary Care Provider [phone] Reason for Visit * Reason Comments Med Refill Encounter Details Date Type Department Care Team ([facility] st Contact Info) Description 09/28/2018 Refill [facility] - [place] [address] [place] [address] Joselin Soto NP [address] [place] [address] Encounter for initial prescription of contraceptive pills [...] pills documented in this encounter Care Teams Automation Specialist Relationship Specialty Start Date End Date Joselin Soto NP [address] [place] [address] PCP - General 07/31/16 01/29/24 documented as of this encounter
--- OUTSIDE RECORDS SUMMARY | 2025-06-01 08:38 | XMS_ITS | Encounter Summary ---
Author Organization [facility] Address [address] [place] [address] Phone Care Team Providers Care Net Programmer Name Role Phone Joselin Soto NP Primary Care Provider [phone] Encounter Details Date Type Department Care Team (Late st Contact Info) Description 01/16/2017 Conversion Encounter [facility] - [address], [address] [place] [address] Joselin Soto NP [address] [place] [address] Social History Tobacco Use Types Packs/Day Years [...] on filedocumented in this encounter Care Teams Net Programmer Relationship Specialty Start Date End Date Joselin Soto NP [address] [place] [address] PCP - General 07/31/16 01/29/24 documented as of this encounter
== END 2025-06-01 08:30 | disposition home or self-care (01) ==
LOC: HO.US 08:29
PROVIDERS: PCP Internal Medicine; Visit Provider Nurse Practitioner Family
DX: K76.0 Fatty (change of) liver, not elsewhere classified (principal)
CPT/HCPCS: 76705; 76981

== ENCOUNTER → 2025-06-01 08:32 | Outpatient (BNV) | payer OTHER, SELFPAY | PROVIDERS: PCP Internal Medicine; Visit Provider Radiology Diagnostic Radiology | DX: K76.0 Fatty (change of) liver, not elsewhere classified (principal) | CPT/HCPCS: 76705 ==